=== PATIENT | female | born 1965 | race Caucasian/White ===

== ENCOUNTER → 2018-03-25 15:52 | Outpatient (CLI) | payer BC, SELFPAY ==
[2018-03-25 18:00] LABS: Vitamin D,25 Hydroxy 25.7 ng/mL (29.95-100.01)
[2018-03-25 18:03] LABS: BUN 15 mg/dL (7-18); Creatinine, Serum 0.83 mg/dL (0.55-1.02); Glucose 87 mg/dL (74-106)
[2018-03-25 18:04] LABS: ALB/GLOB Ratio 1.2 RATIO (0.9-2.4); AST(SGOT) 29 U/L (15-37); Alanine Aminotransfer ALT/SGPT 30 U/L (13-56); Albumin, Serum 4.1 g/dL (3.2-5.0); Alkaline Phosphatase 85 U/L (45-117); Anion Gap 7 (5-15); Chloride 106 mmol/L (98-107); EST Glomerular Filtration Rate 76 mL/min (>60); Est Glom Filt Rate - Afr Amer 92 mL/min (>60); Globulin 3.5 g/dL (2.2-4.2); Protein, Total 7.6 g/dL (6.4-8.2); Sodium Level 141 mmol/L (136-145); Thyroid Stim Hormone (TSH) 1.13 uIU/mL (0.358-3.74)
[2018-03-25 18:17] LABS: Differential Indicated SCAN CRITERIA MET; POSITIVE COUNT YES; POSITIVE DIFFERENTIAL NO; POSITIVE MORPHOLOGY NO
[2018-03-25 19:49] LABS: Hematocrit 38.6 % (37-47); Hemoglobin 13.2 g/dl (12.0-15.0); Mean Corp Hgb Conc 34.2 g/gl (32-36); Mean Corpuscular Hgb 31.4 pg (27.0-32.0); Mean Corpuscular Volume 91.9 fL (81-99); RBC Distribution Width CV 12.9 % (11.6-14.6); White Blood Count 5.9 K/mm3 (4.4-11.0)
[2018-03-25 19:50] LABS: Basophil% 0.3 % (0-1); Lymphocyte % 32.9 % (19-41); Mean Platelet Vol. 10.7 fl (6.2-12.0); Monocyte% 4.8 % (0-10); Neutrophil # 3.23 X10^3/uL (2.7-7.7); Neutrophil % 54.8 % (47-70); Platelet Count 217 K/mm3 (150-450); RBC Distribution Width SD 42.5 fl (35.1-43.9)
[2018-03-25 19:51] LABS: Absolute Lymphocyte Count 1.94 X10^3/ul (0.83-4.51); Absolute Neutrophil Count 3.2 X10^3/uL (2.0-7.7); Basophil# 0.02 X10^3/uL; Eosinophil# 0.41 X10^3/uL; Lymphocyte # 1.94 X10^3/ul (4.0); Monocyte# 0.28 X10^3/uL
[2018-03-25 20:30] LABS: Differential Comment SCANNED; Platelet Estimate ADEQUATE (ADEQ)
== END ==
PROVIDERS: Family Provider Internal Medicine; PCP Internal Medicine; Visit Provider Nurse Practitioner Family
DX: R40.0 Somnolence (principal); E55.9 Vitamin D deficiency, unspecified; R53.83 Other fatigue
CPT/HCPCS: 36415; 80053; 82306; 84443; 85025

== ENCOUNTER → 2018-04-19 20:00 | Outpatient (CLI) | payer BC, SELFPAY | PROVIDERS: Family Provider Internal Medicine; PCP Internal Medicine; Visit Provider Nurse Practitioner Family | DX: R40.0 Somnolence (principal); R06.83 Snoring; R53.83 Other fatigue | CPT/HCPCS: 95810 ==

== ENCOUNTER → 2018-10-02 15:48 | Outpatient (CLI) | payer BC, SELFPAY ==
--- NOTE | 2018-10-02 15:50 | BI_ITS ---
MAMMOGRAPHY - BILATERAL SCREENING REASON FOR EXAM: Female, 52 years old. Routine annual screening examination. PERTINENT HISTORY: Non-contributory. TECHNIQUE: Digital bilateral breast maru (3D mammographic acquisition) in the CC and MLO projections. 2-D mediolateral oblique (MLO) and craniocaudad (CC) views of both breasts were obtained. CAD: Full Field Digital Mammography with Computer Added Detection was performed. COMPARISON: Comparison is made with prior axial examination dated January 01, 2017 and December 29, 2015. FINDINGS: Breast Composition: The breasts are heterogeneously dense, which may obscure small masses. There are no dominant masses or suspicious calcifications. Stable small benign-appearing bilateral axillary lymph nodes. No other significant abnormalities are identified. There has been no significant change since the prior study. BI/SCREENING MAMM (CAD), BILAT IMPRESSION: Stable bilateral screening mammogram. Yearly follow-up mammogram recommended. (A) ASSESSMENT CATEGORY: BIRADS Category 2: Benign. A letter regarding these results will be sent to the patient by the facility within 30 days. Approximately 10% of breast cancers are not detected by mammography. A normal mammogram should not delay biopsy of a clinically suspicious abnormality. [id number] Electronically Signed: Ashok Mccurdy MD at 8:52 EST Tel [phone], Service support ,
== END ==
PROVIDERS: Family Provider Internal Medicine; PCP Internal Medicine; Referring Provider Obstetrics & Gynecology Gynecology; Visit Provider Obstetrics & Gynecology Gynecology
DX: Z12.31 Encounter for screening mammogram for malignant neoplasm of breast (principal)
CPT/HCPCS: 77063; 77067

== ENCOUNTER → 2018-10-07 06:05 | Outpatient (CLI) | payer BC, SELFPAY ==
[2018-10-07 08:12] LABS: Cholesterol 211 mg/dL (200); Glucose 87 mg/dL (74-106); High Density Lipoprotein 60 mg/dL; Thyroid Stim Hormone (TSH) 1.23 uIU/mL (0.358-3.74); Triglycerides 109 mg/dL; Very Low Density Lipoprotein 22 mg/dL (5-40)
== END ==
PROVIDERS: Family Provider Internal Medicine; PCP Internal Medicine; Referring Provider Obstetrics & Gynecology Gynecology; Visit Provider Obstetrics & Gynecology Gynecology
DX: Z13.1 Encounter for screening for diabetes mellitus (principal); Z13.89 Encounter for screening for other disorder; Z13.220 Encounter for screening for lipoid disorders
CPT/HCPCS: 36415; 80061; 82947; 84443

== ENCOUNTER → 2019-10-02 | Outpatient (CLI) | payer BC, SELFPAY ==
--- NOTE | 2019-10-02 16:12 | US_ITS ---
STUDY: ULTRASOUND OF THE FEMALE PELVIS - COMPLETE REASON FOR EXAM: Female, 53 years old. Follow-up fibroids LMP: TECHNIQUE: Transvaginal TECHNICAL QUALITY: Adequate. COMPARISON: 07/05/2016. FINDINGS: The uterus is anteverted and is in a midline position. The uterus measures 6.6 x 8.4 x 2.8 cm. Normal uterine cervix. The endometrium measures 3 mm in thickness, and is hyperechoic. There is no demonstrated endometrial mass. Uterus is lobulated and heterogeneous consistent with diffuse leiomyomatous change and multiple fibroids. There is a right uterine fibroid measuring 6.1 cm. There is a fundal fibroid measuring 2.1 cm. There is an anterior uterine body fibroid measuring 2.1 cm. The right ovary is non-visualized. The left ovary is visualized. The left ovary measures 2.5 x 1.1 x 1.1 cm. There is no left ovarian cyst or ovarian mass. There is no visualized left adnexal mass or complex lesion. There is normal arterial and normal venous vascularity. There is no fluid in the cul-de-sac. US/Transvaginal Non- IMPRESSION: Grossly stable diffuse fibroid involvement of the uterus. Current largest fibroid measures 6.1 cm. Uterine size however is not specifically enlarged. Electronically Signed: Sandro Durán MD at 21:41 EST , Service support ,
== END | disposition home or self-care (01) ==
LOC: US 16:10
PROVIDERS: Family Provider Internal Medicine; PCP Internal Medicine; Referring Provider Obstetrics & Gynecology Gynecology; Visit Provider Obstetrics & Gynecology Gynecology
DX: D25.2 Subserosal leiomyoma of uterus (principal)
CPT/HCPCS: 76830; 93976

== ENCOUNTER → 2019-10-03 | Outpatient (CLI) | payer BC, SELFPAY ==
[2018-05-03 10:35] VITALS: BMI 23.0
--- NOTE | 2019-10-03 15:48 | BI_ITS ---
MAMMOGRAPHY - BILATERAL SCREENING REASON FOR EXAM: Female, 53 years old. Routine annual screening examination. PERTINENT HISTORY: Non-contributory. TECHNIQUE: Digital bilateral breast mary kay (3D mammographic acquisition) in the CC and MLO projections. 2-D mediolateral oblique (MLO) and craniocaudad (CC) views of both breasts were obtained. CAD: Full Field Digital Mammography with Computer Added Detection was performed. COMPARISON: Comparison is made with prior study dated October 02, 2018. FINDINGS: Breast Composition: The breasts are heterogeneously dense, which may obscure small masses. There are no dominant masses or suspicious calcifications. There is a 1.5 cm x 1.5 cm possible nodular density in the upper aspect of the left breast as seen on the mediolateral oblique view. This is not seen on the craniocaudad view. The patient will be recalled for additional views including 90 degree lateral and compression spot view. No other significant abnormalities are identified. BI/SCREEN MAMM (CAD) W/MARY KAY BILAT IMPRESSION: 1.5 cm x 1.5 cm nodular density seen on the mediolateral oblique view of the left breast as described. The patient will be recalled for additional views including 90 degree lateral view and compression spot views of the left breast. Recall Side: Left Breast ASSESSMENT CATEGORY: BIRADS Category 0: Incomplete. Need additional imaging evaluation. A letter regarding these results will be sent to the patient by the facility within 30 days. Approximately 10% of breast cancers are not detected by mammography. A normal mammogram should not delay biopsy of a clinically suspicious abnormality. [id number] Electronically Signed: Ashok Mccurdy, at 8:18 EST , Service support ,
== END | disposition home or self-care (01) ==
LOC: OPBI 15:47
PROVIDERS: Family Provider Family Medicine; PCP Family Medicine; Referring Provider Obstetrics & Gynecology Gynecology; Visit Provider Obstetrics & Gynecology Gynecology
DX: Z12.31 Encounter for screening mammogram for malignant neoplasm of breast (principal)
CPT/HCPCS: 77063; 77067

== ENCOUNTER → 2019-10-13 14:08 | Outpatient (CLI) | payer BC, SELFPAY ==
--- NOTE | 2019-10-13 14:12 | US_ITS ---
STUDY: ULTRASOUND BREAST - LEFT REASON FOR EXAM: Female, 53 years old. TECHNIQUE: Axial and longitudinal images of the LEFT breast were performed with a high resolution ultrasound transducer. # OF IMAGES: 62 COMPARISON: None. FINDINGS: LEFT Breast: There is hyperechoic/hypoechoic texture and some distortion although no evidence of acoustic shadowing behind it. This is about to 1:00 o'clock on the left side for which I recommend MRI for this patient for better evaluation and assessment US/Breast Limited Unilateral IMPRESSION: Focal area of hyperechoic/hypoechoic texture around 1:00 on the left for which MRI is suggested. Electronically Signed: Christian Cherry, at 17:02 EST Tel , Service support ,
--- NOTE | 2019-10-13 14:12 | BI_ITS ---
MAMMOGRAPHY - UNILATERAL DIAGNOSTIC: LEFT BREAST REASON FOR EXAM: Female, 53 years old. PERTINENT HISTORY: Non-contributory. TECHNIQUE: Digital examination. Mediolateral oblique (MLO) and craniocaudad (CC) views of the breast were obtained. CAD: COMPARISON: None. FINDINGS: Breast Composition: Of scattered fibroglandular tissue There are no dominant masses or suspicious calcifications. No other significant abnormalities are identified. The previously described density in the upper aspect of the left base noted in the mediolateral oblique view. Did show faint density on the spot film compression and difficult to characterize so ultrasound is needed for better assessment.. IMPRESSION: Faint density upper aspect of the left breast for ultrasound assessment. MAMMOGRAPHY - BILATERAL SCREENING REASON FOR EXAM: Female, 53 years old. Routine annual screening examination. PERTINENT HISTORY: Non-contributory. TECHNIQUE: Digital bilateral breast maru (3D mammographic acquisition) in the CC and MLO projections. 2-D mediolateral oblique (MLO) and craniocaudad (CC) views of both breasts were obtained. CAD: Full Field Digital Mammography with Computer Added Detection was performed. COMPARISON: Comparison is made with prior study dated October 02, 2018. FINDINGS: Breast Composition: The breasts are heterogeneously dense, which may obscure small masses. There are no dominant masses or suspicious calcifications. There is a 1.5 cm x 1.5 cm possible nodular density in the upper aspect of the left breast as seen on the mediolateral oblique view. This is not seen on the craniocaudad view. The patient will be recalled for additional views including 90 degree lateral and compression spot view. No other significant abnormalities are identified. BI/DIAG MAMM W/CAD, UNILAT IMPRESSION: 1.5 cm x 1.5 cm nodular density seen on the mediolateral oblique view of the left breast as described. The patient will be recalled for additional views including 90 degree lateral view and compression spot views of the left breast. Recall Side: Left Breast ASSESSMENT CATEGORY: BIRADS Category 0: Incomplete. Need additional imaging evaluation. A letter regarding these results will be sent to the patient by the facility within 30 days. Approximately 10% of breast cancers are not detected by mammography. A normal mammogram should not delay biopsy of a clinically suspicious abnormality. [id number] ASSESSMENT CATEGORY: FOLLOW-UP RECOMMENDATION: Approximately 10% of breast cancers are not detected by mammography. A normal mammogram should not delay biopsy of a clinically suspicious abnormality. Electronically Signed: Christian Cherry, at 14:54 EST Tel , Service support ,
== END ==
PROVIDERS: Family Provider Family Medicine; PCP Family Medicine; Referring Provider Obstetrics & Gynecology Gynecology; Visit Provider Obstetrics & Gynecology Gynecology
DX: R92.8 Other abnormal and inconclusive findings on diagnostic imaging of breast (principal)
CPT/HCPCS: 76642; 77065

== ENCOUNTER → 2019-10-27 13:14 | Outpatient (CLI) | payer BC, SELFPAY ==
--- NOTE | 2019-10-27 13:23 | MRI_ITS ---
STUDY: BILATERAL BREAST MR WITHOUT AND WITH CONTRAST REASON FOR EXAM: Female, 54 years old. Abnormal mammogram and ultrasound. TECHNIQUE: Multi-sequence multi-echo imaging of both breasts was performed with a dedicated breast coil. T1-weighted and T2-weighted images were performed before the administration of contrast. T1-weighted images were also performed after the administration of Dotarem 12cc without complications. COMPARISON: Bilateral mammograms dated October 03, 2019, unilateral left mammogram dated October 13, 2019 and unilateral left breast ultrasound dated October 13, 2019. FINDINGS: RIGHT BREAST: The breast tissue is heterogeneously dense with minimal background enhancement. 4 mm in diameter ovoid enhancing lesion in the upper outer aspect of the right breast, likely representing a fibroadenoma. A six-month follow-up right mammogram and a targeted right breast ultrasound would be appropriate, given the small size of this lesion. The lesion is located 7.5 cm behind the nipple and approximately 1.6 cm lateral to the nipple and approximately 2.4 cm above the nipple. LEFT BREAST: The breast tissue is heterogeneously dense with minimal background enhancement. There are no abnormal enhancing masses or areas of non-mass enhancement in the left breast. There are no enlarged or abnormal lymph nodes. There is no abnormality in the visualized regions of the chest or liver. MRI/Breast Bilateral W/O and W IMPRESSION: Normal left breast. 4 mm in diameter ovoid enhancing lesion in the right breast as described. A 6 month follow-up mammogram and targeted right breast ultrasound would be appropriate, given the small size of this lesion. CATEGORY: BIRADS Category 3: Probably Benign - Short-Interval Follow-up Suggested. A letter regarding these results will be sent to the patient by the facility within 30 days. Electronically Signed: Aramis Mcallister MD at 16:32 EST , Service support ,
== END ==
PROVIDERS: Family Provider Family Medicine; PCP Family Medicine; Referring Provider Obstetrics & Gynecology Gynecology; Visit Provider Obstetrics & Gynecology Gynecology
DX: R92.8 Other abnormal and inconclusive findings on diagnostic imaging of breast (principal)
CPT/HCPCS: 77049; C8908

== ENCOUNTER → 2020-10-26 13:12 | Outpatient (CLI) | payer BC, SELFPAY ==
[2018-05-03 10:35] VITALS: BMI 23.0
== END ==
PROVIDERS: PCP Family Medicine; Referring Provider Obstetrics & Gynecology Gynecology; Visit Provider Obstetrics & Gynecology Gynecology
DX: R00.2 Palpitations (principal)
CPT/HCPCS: 93225; 93226

== ENCOUNTER 2020-11-03 05:51 | Observation (INO) | payer BC, SELFPAY ==
[2020-11-03] VITALS (17 sets, daily range): BP systolic 104–172; BP diastolic 71–107; PULSE 76–101; RESP 16–18; TEMP 36.5–37.1; O2SAT 96–100; BMI 23.1
--- NOTE | 2020-11-03 05:53 | ED.RN ---
no old ekgs on file
--- NOTE | 2020-11-03 06:06 | EKG12_ITS ---
Test Reason : CHEST PAIN Blood Pressure : / mmHG Vent. Rate : 088 BPM Atrial Rate : 088 BPM P-R Int : 132 ms QRS Dur : 082 ms QT Int : 356 ms P-R-T Axes : 053 -14 036 degrees QTc Int : 430 ms Normal sinus rhythm Normal ECG Confirmed by PRISCILLA ROSADO, NAMRATA ([id number]), videotape editor SYD NAVARRETE ([id number]) on 11/10/2020 10:28:16 AM Referred By: JAY Confirmed By:JACK WELLS MD
--- NOTE | 2020-11-03 06:06 | RAD_ITS ---
STUDY: X-RAY CHEST REASON FOR EXAM: Female, 55 years old. c/o heaviness in chest and dyspnea x 1 week TECHNIQUE: Single AP portable view of the chest. COMPARISON: None. FINDINGS: There are superimposed monitor leads. There is hyperinflation of the lungs consistent with chronic obstructive lung disease (COPD). Calcified nodule in the left peripheral lung base. There is no demonstrated pleural abnormality. Normal size heart. Normal mediastinum and gregoria. Normal visualized pulmonary arteries. There is atherosclerotic calcification of the aortic arch with tortuosity. Normal visualized thoracic spine. Normal visualized ribs, clavicles, and shoulders. There is no demonstrated abnormality of the visualized soft tissue structures of the upper abdomen. RAD/Chest 1 View (Portable) IMPRESSION: COPD. Calcified nodule in the left base possible granuloma. Correlation to previous examination and history recommended. Otherwise follow-up examination for stability assessment advised. Electronically Signed: Marti Baker MD at 6:43 EST , Service support ,
--- NOTE | 2020-11-03 06:07 | ED.DCSUM_ITS ---
History of Present Illness Chief Complaint: Chest Pain Informant: Patient Onset: Days - 6 days Context: Gradual Onset Timing: Waxes and wanes Current Severity: Moderate Maximum Severity: Moderate Narrative: Patient presents secondary to chest heaviness. She states she has felt like she had someone sitting on her chest for the last week or so. On the eighth she had a Holter monitor placed secondary to palpitations. She states ever since that was removed on the 10th she has had heaviness in her chest. It does seem to get worse with exertion is slightly better with rest. She does feel like she can get a deep breath. No fevers or chills. No cough. She denies known history of cardiac disease but denies ever having a stress test or heart cath. She denies any significant family history. - Past Medical History (1) GERD (gastroesophageal reflux disease) Status: Chronic (2) Chronic back pain Status: Chronic Past Medical History - Allergies and Home Meds Allergies/Adverse Reactions: Allergies No Known Allergies Allergy (Unverified 05/03/18 10:45) Primary Care Physician: Jessica Huffman MD [Primary Care Provider] - Prior records reviewed: Yes Smoking Status: Former smoker Review of Systems General: Denies: Chills, Fever Eyes: Denies: Visual changes - bilaterally ENT: Denies: Bilateral ear pain Cardiovascular: Reports: Chest pain Respiratory: Denies: Dyspnea, Cough Gastrointestinal: Denies: Abdominal pain, Nausea, Vomiting, Diarrhea Genitourinary: Denies: Dysuria Musculoskeletal: Denies: Swelling, Extremity Pain Skin: Denies: Rash Neurological: Denies: Headache Hematologic: Denies: Easy bruising, Easy bleeding Allergy: Denies: Uticaria Physical Exam Vital Signs/Narrative: Vital Signs Temp Pulse Resp BP Pulse Ox 11/03/20 05:51 98.4 F 100 17 172/107 H 100 Inital Vital Signs reviewed: Yes General: Well nourished, Well developed Head: Normocephalic ENT: Moist mucous membranes Neck: Supple Cardiovascular: Regular rate, Regular rhythm Respiratory: No distress, CTA bilaterally, Chest nontender Abdomen: Soft, Nontender Skin: Normal color Neurological: Alert, Oriented x3 Psychological: Normal affect Diagnostic/Tx/Re-eval Chest X-Ray - ED: 1 View, Read by ED Physician, - - Hyperexpanded lungs. 11/03/20 06:06 Chest 1 View (Portable) [RAD] Stat Laboratory Results 11/03/20 11/03/20 05:54 05:54 WBC 5.4 RBC 5.13 Hgb 16.0 H Hct 46.6 MCV 90.8 MCH 31.2 MCHC 34.3 RDW Std Deviation 39.1 RDW Coeff of Angie 11.9 Plt Count 240 MPV 9.9 Immature Gran % (Auto) 0.400 Neut % (Auto) 50.7 Lymph % (Auto) 33.2 [place] % (Auto) 5.9 Eos % (Auto) 9.1 H Baso % (Auto) 0.7 Absolute Neuts (auto) 2.7 Absolute Lymphs (auto) 1.79 Nucleated RBC % 0 Sodium 139 Potassium 3.5 Chloride 106 Carbon Dioxide 29.0 Anion Gap 4 L BUN 16 Creatinine 0.85 Estim Creat Clear Calc 57.75 Est GFR (MDRD) Af Amer 89 Est GFR (MDRD) Non-Af 74 BUN/Creatinine Ratio 18.9 Glucose 100 Calcium 9.3 Troponin I < 0.015 - EKG Initial EKG Interpretation: Sinus Rhythm - Sinus 88 with no acute ischemia. - Medical Decision Making Patient was given aspirin along with 2 sublingual nitroglycerin. On repeat evaluation she reports mild improvement in her pain. Blood work including cardiac enzymes are negative at this time. Chest x-ray shows chronic hyperinflation changes. I was able to review the Holter monitor report from earlier this month. Rare PVCs were noted. No arrhythmias appreciated. At this time patient story is concerning. I will speak with hospitalist regarding observation for cycling of enzymes and possible stress test. Patient is comfortable with this plan. ED Disposition - Plan for ED Patient: Disposition: Acute Care Hospital [facility] Diagnosis: Chest pain Referrals: Jessica Huffman MD [Primary Care Provider] -
[2020-11-03] MEDS: Aspirin 81 MG TAB.CHEW 324 MG PO (06:10)
[2020-11-03 06:11] LABS: Absolute Lymphocyte Count 1.79 X10^3/uL (0.83-4.51); Absolute Neutrophil Count 2.7 X10^3/uL (2.0-7.7); Basophil# 0.04 X10^3/uL; Basophil% 0.7 % (0-1); Eosinophil# 0.49 X10^3/uL; Eosinophils% 9.1 % (0-5); Hematocrit 46.6 % (37-47); Lymphocyte # 1.79 X10^3/ul (4.0); Lymphocyte % 33.2 % (19-41); Mean Corp Hgb Conc 34.3 g/dL (32-36); Mean Corpuscular Hgb 31.2 pg (27.0-32.0); Mean Corpuscular Volume 90.8 fL (81-99); Mean Platelet Vol. 9.9 fl (6.2-12.0); Monocyte# 0.32 X10^3/uL; Monocyte% 5.9 % (0-10); NRBC Flagged by Analyzer 0 % (0-5); Neutrophil # 2.73 X10^3/uL (2.7-7.7); Neutrophil % 50.7 % (47-70); Platelet Count 240 K/mm3 (150-450); RBC Distribution Width CV 11.9 % (11.6-14.6); RBC Distribution Width SD 39.1 fl (35.1-43.9); Red Blood Count 5.13 M/mm3 (4.2-5.4); White Blood Count 5.4 K/mm3 (4.4-11.0)
[2020-11-03] MEDS: Nitroglycerin SL (ED/IMG/CATH) 0.4 MG TABLET SUBLINGUAL ×2 (06:15→06:25)
[2020-11-03] MEDS: 0.9% Normal Saline 1,000 ML 150 ML IV ×3 (06:16→18:42)
[2020-11-03 06:29] LABS: Anion Gap 4 (5-15); BUN 16 mg/dL (7-18); BUN/Creat Ratio 18.9 RATIO (10-20); Calcium,Total 9.3 mg/dL (8.5-10.1); Chloride 106 mmol/L (98-107); Creatinine, Serum 0.85 mg/dL (0.55-1.02); EST Glomerular Filtration Rate 74 mL/min (>60); Est Glom Filt Rate - Afr Amer 89 mL/min (>60); Estimated Creatinine Clearance 57.75 ml/min; Glucose 100 mg/dL (74-106); Potassium 3.5 mmol/L (3.5-5.1); Sodium Level 139 mmol/L (136-145)
--- NOTE | 2020-11-03 07:09 | EKG12_ITS ---
Test Reason : ADMISSION Blood Pressure : / mmHG Vent. Rate : 079 BPM Atrial Rate : 079 BPM P-R Int : 138 ms QRS Dur : 078 ms QT Int : 384 ms P-R-T Axes : 043 004 026 degrees QTc Int : 440 ms Normal sinus rhythm Normal ECG Confirmed by BRANDO ROSADO, WINNIE ([id number]), editorial clerk KATJA CURRY ([id number]) on 11/15/2020 8:13:13 AM Referred By: BRITTNEY Confirmed By:WINNIE MICHAELS MD
--- NOTE | 2020-11-03 07:12 | HP.PCM_ITS ---
Problem List (1) Chest pain Status: Acute (2) GERD (gastroesophageal reflux disease) Status: Chronic (3) PLMD (periodic limb movement disorder) Status: Chronic (4) Mild sleep apnea Status: Chronic (5) Snoring Status: Chronic (6) Daytime somnolence Status: Chronic (7) Menopausal and postmenopausal disorder Status: Chronic (8) Chronic back pain Status: Chronic (9) Seasonal allergies Status: Chronic History of Present Illness Date of Admission: 11/03/20 Chief Complaint: Chest Pain The patient is a 55 year old F past medical history segment for GERD who presented with chest pain. Patient symptoms have been ongoing for the past week. She describes the pain as being heaviness located in the retrosternal region worsened with activity and relieved with rest. She had also been experiencing some palpitations prior to that Holter monitor ordered revealed episodic PVCs. In the emergency department her initial set of cardiac enzymes and EKG came back negative was given nitroglycerin with some relief admitted to a monitored bed for further management Past Medical History Past Medical History (Chronic Problems): Chronic Problems (Last Reviewed 05/03/18 @ 10:49 by Jessica Yates CONTROL SPECIALIST, CONTROL SPECIALIST-C) GERD (gastroesophageal reflux disease) (Chronic) PLMD (periodic limb movement disorder) (Chronic) Mild sleep apnea (Chronic) Snoring (Chronic) Daytime somnolence (Chronic) Menopausal and postmenopausal disorder (Chronic) Chronic back pain (Chronic) Seasonal allergies (Chronic) Medical History: Medical History (Last Reviewed 11/03/20 @ 07:[address] Samuel Duarte MD) Menopausal and postmenopausal disorder (Chronic) N95.9 Chronic back pain (Chronic) M54.9, G89.29 Seasonal allergies (Chronic) J30.2 Allergies No Known Allergies Allergy (Unverified 05/03/18 10:45) Home Medications: Ambulatory Orders Medication Instructions Recorded Omeprazole [Prilosec] 20 mg PO DAILY 11/03/20 Surgical History: Surgical History (Last Reviewed 11/03/20 @ 07:[address] Samuel Duarte MD) H/O right breast biopsy Z98.890 2005 S/P bunionectomy Z98.890 Right foot 2013 Smoking Status: Former smoker - *Family History Maternal Family History: Family History (Last Reviewed 11/03/20 @ 07:[address] Samuel Duarte MD) Mother COPD (chronic obstructive pulmonary disease) Emphysema lung Father Lung cancer Brother Pancreatic cancer Review of Systems Constitutional: Denies: Anorexia, Chills, Fever, Night Sweats, Weight Change HEENT: Denies: Head Aches, Sinus Congestion, Sinus Drainage Cardiovascular: Reports: Chest Pain, Chest Pressure, Palpitations. Denies: Orthopnea, Paroxysmal Noc. Dyspnea Respiratory: Denies: Cough, Shortness of breath at rest, Shortness of breath upon exertion, Sputum production Gastrointestinal: Denies: Abdominal Pain, Hematemesis, Hematochezia, Nausea, Melena, Vomiting Genitourinary: Denies: Dysuria, Frequency, Hematuria, Urgency Musculoskeletal: Denies: Joint Pain, Joint Tenderness Skin: Denies: Rash Neurological: Denies: Focal weakness, Numbness, Tingling Psychiatric: Denies: Homicidal Ideations, Suicidal Ideations Hematologic/ Lymphatic: Denies: Easy Bruising, Easy Bleeding VTE Information - Inpt Only VTE Present on Admission: Yes VTE Mechan Device Prophylaxis: None VTE Pharm Prophylaxis ordered?: Yes Patient Problems: Active and Suspected Problems (Last Reviewed 05/03/18 @ 10:49 by Jessica Yates CONTROL SPECIALIST, CONTROL SPECIALIST-C) Chest pain (Acute) - Physical Exam Vitals/I&O's: Vital Signs Temp Pulse Resp BP Pulse Ox 98.7 F 77 18 133/86 H 99 11/03/20 07:06 11/03/20 07:06 11/03/20 07:06 11/03/20 07:06 11/03/20 07:06 Oxygen Delivery Method Room Air Weight: 57.5 kg Body Mass Index (BMI) 23.1 General: Alert, Oriented x3, Cooperative, No apparent distress HEENT: Atraumatic Neck: Supple, No JVD, Thyroid Normal Size and Texture Lungs: Clear to auscultation, No wheeze Cardiovascular: Regular rate, Normal S1, Normal S2, No murmurs, PMI Normal, No rub noted Abdomen: Bowel Sounds Present, Soft, Non Tender Extremities: No clubbing, No cyanosis, No edema Skin: No rashes Musculoskeletal: - - Full range of motion in all major muscle groups. Neurological: Neuro grossly intact Psych/Mental Status: Normal Affect Laboratory Results 11/03/20 05:54: WBC 5.4, RBC 5.13, Hgb 16.0 H, Hct 46.6, MCV 90.8, MCH 31.2, MCHC 34.3, RDW Std Deviation 39.1, RDW Coeff of Angie 11.9, Plt Count 240, MPV 9.9, Immature Gran % (Auto) 0.400, Neut % (Auto) 50.7, Lymph % (Auto) 33.2, [place] % (Auto) 5.9, Eos % (Auto) 9.1 H, Baso % (Auto) 0.7, Absolute Neuts (auto) 2.7, Absolute Lymphs (auto) 1.79, Nucleated RBC % 0 11/03/20 05:54: Sodium 139, Potassium 3.5, Chloride 106, Carbon Dioxide 29.0, Anion Gap 4 L, BUN 16, Creatinine 0.85, Estim Creat Clear Calc 57.75, Est GFR (MDRD) Af Amer 89, Est GFR (MDRD) Non-Af 74, BUN/Creatinine Ratio 18.9, Glucose 100, Calcium 9.3, Troponin I < 0.015 Current Medications Sodium Chloride () 1,000 mls @ 150 mls/hr IV .Q6H40M [place] Last Admin: 11/03/20 06:16 Dose: 150 mls/hr Documented by: Nitroglycerin (Nitroglycerin Sl (Ed/Img/Cath) 0.4 Mg Tablet) 0.4 mg SUBLINGUAL Q5M PRN PRN Reason: Chest pain Last Admin: 11/03/20 06:25 Dose: 0.4 mg Documented by: Assessment/Plan All Active Problems (Last Reviewed 05/03/18 @ 10:49 by Jessica Yates CONTROL SPECIALIST, CONTROL SPECIALIST- C) Chest pain (Acute) Patient is a 55-year-old lady presented with chest discomfort 1. Chest pain ?Admitted to monitored bed ruling out NH with serial cardiac enzymes patient to undergo a nuclear stress test once NH ruled out 2. GERD -patient is on PPI 3. DVT prophylaxis ?Lovenox OBSV E&M: [id number] Initial observation care L2
--- NOTE | 2020-11-03 07:12 | NURSING ---
PCU CP KITRAUL
--- NOTE | 2020-11-03 09:13 | PCS.PANDOC ---
PANDEMIC DOCUMENTATION INITIATED: Date: 11/03/2021 Time: 911
[2020-11-03] MEDS: Pantoprazole Sodium 20 MG Tablet PO (10:06)
--- NOTE | 2020-11-03 13:41 | STRESSREP_ITS ---
Stress Test Report Date: 1965 Procedure: Exercise tolerance test/imaging study Indications: Chest pain Consent: Per the patient Procedure: The patient exercised on a Zach protocol for 9 minutes achieving a peak heart rate of 173 bpm (106% predicted maximal heart rate) with a peak blood pressure 154/72 mmHg and a peak MET capacity of 10.1 METs. The baseline ECG demonstrated normal sinus rhythm. The peak exercise ECG demonstrated tachycardia with no significant ischemic ST-T changes. Patient does have upsloping ST depressions in the inferior and lateral leads. EKG during recovery revealed no significant ischemic changes [There were no cardiac dysrhythmias pretest, during exercise, or recovery]. The functional capacity was considered normal for age. Patient had chest pain at baseline which got worse with exertion and came down in the recovery period. The examination was discontinued secondary to chest discomfort. Impression: 1. Technically adequate (percent predicted maximal heart rate greater than 85%) exercise tolerance test 2. Stress test is negative for exercise-induced EKG changes of ischemia 3. The test test is positive for exercise-induced chest pain 4. Functional capacity is normal for age 5. Nuclear images pending Myocardial perfusion imaging study: Technique: The patient was injected with 11.7 mCi of technetium 99m Cardiolite and subsequently rest SPECT Cardiolite nuclear imaging was obtained in the horizontal long, vertical long, and short axis views. The patient exercised on a Zach protocol. Please see above for details. The patient was injected with 32.9 mCi of technetium 99m Cardiolite and subsequently stress SPECT Cardiolite nuclear imaging was obtained in the horizontal long, vertical long, and short axis views. A gated Cardiolite study at peak stress was obtained. Interpretation: Rest and stress SPECT Cardiolite nuclear imaging status post realignment, normalization, and attenuation correction, demonstrates no significant fixed or reversible defect suggestive of significant ischemia or infarction. The gated Cardiolite study demonstrates no significant regional wall motion abnormalities. The reported LVEF is greater than 70%. Impression: 1. There is no evidence of significant ischemia or infarction. 2. The gated Cardiolite study reports an LVEF of greater than 70%. This note was generated with [email or web address] software. It may contain incorrect words, spelling, and punctuation that were not noted in checking the note before signing.
--- NOTE | 2020-11-03 15:12 | CASEMGMT ---
According to the [facility] website, the following are in-network tertiary facilities: [facility], [place], [facility], [facility], [facility], [facility], [facility], and . Yuri SMITH CM
--- NOTE | 2020-11-03 15:36 | PCM.CONS.C ---
Reason for Consult Date of Consultation: 11/03/20 Reason for Consultation: chest pain, abnormal stress test History of Present Illness: The patient is a 55 year old F [presenting with retrosternal chest discomfort that is pressure-like. She states she sometimes gets it at rest but exertion does make it worse. She underwent stress testing which revealed no significant EKG or nuclear changes suggestive of significant ischemia but patient had chest discomfort at baseline that was worse with exertion. Review of systems: All systems reviewed. All others negative except that in HPI] Past Medical History Allergies/Adverse Reactions: Allergies No Known Allergies Allergy (Unverified 05/03/18 10:45) Home Medications: Ambulatory Orders Medication Instructions Recorded Omeprazole [Prilosec] 20 mg PO DAILY 11/03/20 Past Medical History (Chronic Problems): Chronic Problems (Last Reviewed 11/03/20 @ 07:[address] Samuel Duarte MD) GERD (gastroesophageal reflux disease) (Chronic) PLMD (periodic limb movement disorder) (Chronic) Mild sleep apnea (Chronic) Snoring (Chronic) Daytime somnolence (Chronic) Menopausal and postmenopausal disorder (Chronic) Chronic back pain (Chronic) Seasonal allergies (Chronic) - *Family History Maternal Family History: Family History (Last Reviewed 11/03/20 @ 07:[address] Samuel Duarte MD) Mother COPD (chronic obstructive pulmonary disease) Emphysema lung Father Lung cancer Brother Pancreatic cancer Smoking Status: Former smoker Objective: Vital Signs Temp Pulse Resp BP Pulse Ox 98.1 F 95 16 137/78 H 100 11/03/20 11:40 11/03/20 15:00 11/03/20 11:40 11/03/20 11:40 11/03/20 15:13 Oxygen Delivery Method Room Air Weight: 126 lb 8.725 oz Body Mass Index (BMI) 23.1 Intake and Output for Last 24 Hours 11/01/20 11/02/20 11/03/20 23:59 23:59 23:59 Intake Total 892.5 / 892.5 Balance 892.5 / 892.5 General: Awake, Alert, Oriented x 3 HEENT: Atraumatic Oral: Moist Mucosa Neck: Supple Lungs: Clear to auscultation Cardiovascular: Regular Rhythm Extremities: No edema Skin: No Rashes Psych/Mental Status: Appropriate 11/03/20 05:54: WBC 5.4, RBC 5.13, Hgb 16.0 H, Hct 46.6, MCV 90.8, MCH 31.2, MCHC 34.3, Plt Count 240, MPV 9.9, Immature Gran % (Auto) 0.400, Neut % (Auto) 50.7, Lymph % (Auto) 33.2, [place] % (Auto) 5.9, Eos % (Auto) 9.1 H, Baso % (Auto) 0.7, Absolute Neuts (auto) 2.7, Nucleated RBC % 0 11/03/20 05:54: Sodium 139, Potassium 3.5, Chloride 106, Carbon Dioxide 29.0, Anion Gap 4 L, BUN 16, Creatinine 0.85, Est GFR (MDRD) Af Amer 89, Est GFR (MDRD) Non-Af 74, BUN/Creatinine Ratio 18.9, Glucose 100, Calcium 9.3, Troponin I < 0.015 11/03/20 09:20: Troponin I < 0.015 11/03/20 12:28: Troponin I < 0.015 Rhythm: EKG: ECHO: Stress Test: Cardiac Cath: PCI: CT Surgery: Holter monitor: EPS: PPM: CXR: Chest CT Scan: Assessment/Plan 1. Chest pain: This is concerning for unstable angina. Treatment options discussed with patient in detail. We will proceed with coronary angiography tomorrow. Risks and benefits discussed with the patient.
[2020-11-03] MEDS: Enoxaparin 40 MG/0.4 ML Syringe SC (15:43)
[2020-11-04] VITALS (11 sets, daily range): BP systolic 112–139; BP diastolic 71–90; PULSE 69–84; RESP 16–18; TEMP 36.6–37; O2SAT 98–100
[2020-11-04] MEDS: 0.9% Normal Saline 1,000 ML 150 ML IV ×3 (01:25→11:00)
--- NOTE | 2020-11-04 05:55 | EKG12_ITS ---
Test Reason : AM EKG Blood Pressure : / mmHG Vent. Rate : 075 BPM Atrial Rate : 075 BPM P-R Int : 144 ms QRS Dur : 080 ms QT Int : 410 ms P-R-T Axes : 052 005 048 degrees QTc Int : 457 ms Normal sinus rhythm Normal ECG Confirmed by BRANDO ROSADO, WINNIE ([id number]), editor map KATJA CURRY ([id number]) on 11/15/2020 8:13:01 AM Referred By: BRITTNEY Confirmed By:WINNIE MICHAELS MD
[2020-11-04 06:13] LABS: Absolute Lymphocyte Count 1.53 X10^3/uL (0.83-4.51); Absolute Neutrophil Count 2.3 X10^3/uL (2.0-7.7); Basophil# 0.04 X10^3/uL; Basophil% 0.9 % (0-1); Eosinophils% 10.9 % (0-5); Hematocrit 40.8 % (37-47); Hemoglobin 13.6 g/dL (12.0-15.0); Lymphocyte # 1.53 X10^3/ul (4.0); Lymphocyte % 33.5 % (19-41); Mean Corp Hgb Conc 33.3 g/dL (32-36); Mean Corpuscular Hgb 30.1 pg (27.0-32.0); Mean Corpuscular Volume 90.3 fL (81-99); Mean Platelet Vol. 10.1 fl (6.2-12.0); Monocyte# 0.24 X10^3/uL; Monocyte% 5.3 % (0-10); NRBC Flagged by Analyzer 0 % (0-5); Neutrophil # 2.25 X10^3/uL (2.7-7.7); Neutrophil % 49.2 % (47-70); Platelet Count 209 K/mm3 (150-450); RBC Distribution Width CV 12.1 % (11.6-14.6); RBC Distribution Width SD 40.1 fl (35.1-43.9); Red Blood Count 4.52 M/mm3 (4.2-5.4); White Blood Count 4.6 K/mm3 (4.4-11.0)
[2020-11-04 06:37] LABS: Anion Gap 3 (5-15); BUN 10 mg/dL (7-18); BUN/Creat Ratio 15.8 RATIO (10-20); Calcium,Total 8.1 mg/dL (8.5-10.1); Chloride 115 mmol/L (98-107); Creatinine, Serum 0.63 mg/dL (0.55-1.02); EST Glomerular Filtration Rate 103 mL/min (>60); Est Glom Filt Rate - Afr Amer 125 mL/min (>60); Estimated Creatinine Clearance 77.92 ml/min; Glucose 86 mg/dL (74-106); Phosphorus 2.9 mg/dL (2.5-4.9); Sodium Level 144 mmol/L (136-145)
[2020-11-04] MEDS: Pantoprazole Sodium 20 MG Tablet PO (11:17)
--- NOTE | 2020-11-04 12:20 | PCM.PROGNOTE ---
Patient Problems: Active and Suspected Problems (Last Reviewed 11/03/20 @ 07:[address] Samuel Duarte MD) Chest pain (Acute) Subjective: Patient seen and examined. Reports continued chest pressure however improved from prior. Denies shortness of breath, palpitations. Underwent cardiac catheterization - Physical Exam Vitals/I&O's: Vital Signs Temp Pulse Resp BP Pulse Ox 98.4 F 77 18 131/82 H 99 11/04/20 12:17 11/04/20 12:17 11/04/20 12:17 11/04/20 12:11/04/20 12:17 Oxygen Delivery Method Room Air Weight: 126 lb 8.725 oz Body Mass Index (BMI) 23.1 Intake and Output for Last 24 Hours 11/02/20 11/03/20 11/04/20 23:59 23:59 23:59 Intake Total 2652.5 / 2652.5 219 / 2190 Balance 2652.5 / 2652.5 2189 / 2190 General: Alert, Oriented x3, Cooperative HEENT: Atraumatic, PERRLA, EOMI, Normocephalic Neck: Supple, No JVD, Negative Carotid Bruits Lungs: Clear to auscultation, Normal air movement Cardiovascular: Regular rate, No murmurs Abdomen: Bowel Sounds Present, Soft, Non Tender, Non-Distended Extremities: No clubbing, No cyanosis, No edema, Capillary Refill Less than 3 Seconds Skin: No rashes, No breakdown Musculoskeletal: No Tenderness to Palpation of Joints or Extremities Neurological: Cranial nerves II-XII grossly intact, Neuro grossly intact Psych/Mental Status: Normal Affect, Appropriate Laboratory Results 11/03/20 12:28: Troponin I < 0.015 11/04/20 05:45: WBC 4.6, RBC 4.52, Hgb 13.6, Hct 40.8, MCV 90.3, MCH 30.1, MCHC 33.3, RDW Std Deviation 40.1, RDW Coeff of Angie 12.1, Plt Count 209, MPV 10.1, Immature Gran % (Auto) 0.200, Neut % (Auto) 49.2, Lymph % (Auto) 33.5, [place] % (Auto) 5.3, Eos % (Auto) 10.9 H, Baso % (Auto) 0.9, Absolute Neuts (auto) 2.3, Absolute Lymphs (auto) 1.53, Nucleated RBC % 0 11/04/20 05:45: Sodium 144, Potassium 4.0, Chloride 115 H, Carbon Dioxide 26.0, Anion Gap 3 L, BUN 10, Creatinine 0.63, Estim Creat Clear Calc 77.92, Est GFR (MDRD) Af Amer 125, Est GFR (MDRD) Non-Af 103, BUN/Creatinine Ratio 15.8, Glucose 86, Calcium 8.1 L, Phosphorus 2.9 Current Medications Acetaminophen (Acetaminophen 325 Mg Tablet) 650 mg PO Q6H PRN PRN PRN Reason: Pain Score 1-10/Temp > 100.7 F Al Hydroxide/Mg Hydroxide (Mag Hydrox/Al Hydrox/Simeth 30 Ml Udc) 30 ml PO Q6H PRN PRN PRN Reason: Gastric Burning Enoxaparin Sodium (Enoxaparin 40 Mg/0.4 Ml Syringe) 40 mg SC DAILY [facility] Last Admin: 11/04/20 12:03 Dose: Not Given Documented by: Sodium Chloride () 1,000 mls @ 150 mls/hr IV .Q6H40M [facility] Last Admin: 11/04/20 07:45 Dose: 150 mls/hr Documented by: Sodium Chloride () 250 mls @ 15 mls/hr IV .[id number] PRN PRN Reason: Saline Flush Sodium Chloride () 250 mls @ 15 mls/hr IV .[id number] PRN PRN Reason: Additional IVPB Infusion Sodium Chloride () 1,000 mls @ 150 mls/hr IV .Q6H40M [facility] Nitroglycerin (Nitroglycerin (Inpatient Use) 0.4 Mg Tab.Subl) 0.4 mg SUBLINGUAL Q5M PRN PRN Reason: CARDIAC/CHEST PAIN Ondansetron HCl (Ondansetron 4 Mg/2 Ml Vial) 4 mg IV Q8H PRN PRN PRN Reason: NAUSEA/VOMITING Oxycodone HCl (Oxycodone 5 Mg Tablet) 5 mg PO Q4H PRN PRN PRN Reason: Pain Score 4-10 Pantoprazole Sodium (Pantoprazole Sodium 20 Mg Tablet) 20 mg PO DAILY [facility] Last Admin: 11/04/20 11:17 Dose: 20 mg Documented by: Potassium Chloride (Potassium Chloride 20 Meq Tablet) 20 meq PO BIDCM [facility] Last Admin: 11/04/20 11:17 Dose: 20 meq Documented by: Sodium Chloride (0.9% Saline Lock 10 Ml Syringe) 10 - 40 ml IV UD PRN PRN Reason: SALINE FLUSH Medical Necessity - Tobacco Use Smoking Status: Former smoker Assessment/Plan All Active Problems (Last Reviewed 11/03/20 @ 07:[address] Samuel Duarte MD) Chest pain (Acute) 1. Chest pain, abnormal stress test 2. GERD-continue PPI. DVT prophylaxis- Lovenox sc This patient was seen by RANDALL Reilly under the supervision of Dr. Duarte.
--- NOTE | 2020-11-04 13:49 | DCINST_ITS ---
- Discharge Diagnoses Current Active Problems: Current Active and Chronic Problems (Last Reviewed 11/03/20 @ 07:[address] Samuel Duarte MD) GERD (gastroesophageal reflux disease) (Chronic) Chest pain (Acute) PLMD (periodic limb movement disorder) (Chronic) Mild sleep apnea (Chronic) Snoring (Chronic) Daytime somnolence (Chronic) Menopausal and postmenopausal disorder (Chronic) Chronic back pain (Chronic) Seasonal allergies (Chronic) You will use the following diet at home:: Cardiac Discharge Activity: Return to Normal Activity Call your doctor if you observe: Shortness of breath, Dizziness, Fainting spells, Chest pain Allergies/Adverse Reactions: Allergies No Known Allergies Allergy (Unverified 05/03/18 10:45) Medications to take at Discharge Omeprazole [Prilosec] 20 mg PO DAILY 11/03/20 Aspirin E.C. [Ecotrin] 81 mg PO DAILY@0800 #30 tab 11/04/20 Atorvastatin Calcium 20 mg PO QHS #30 tab 11/04/20 The following prescriptions were given: Atorvastatin Calcium 20 mg PO QHS #30 tab Transmission Status: Pending to [facility]/pharmacy #[id number] Aspirin E.C. [Ecotrin] 81 mg PO DAILY@0800 #30 tab Transmission Status: Pending to [facility]/pharmacy #[id number] Primary Care Physician: Jessica Huffman MD [Primary Care Provider] - Please follow up with your Primary Care Physician in: 1 Week Test Results: Test results from this visit will be discussed in further detail at your follow- up appointment, if applicable. Please Follow Up With: Britney Douglass MD When: 2-4 Weeks, may see [employer]ACH[employer] TENDER/PA Proposed Discharge Date: 11/04/20
--- NOTE | 2020-11-04 13:50 | PCM.DC.SUM ---
<Livia Tilley LEHR ATTENDANT - Last Filed: 11/04/20 13:55> Discharge Date and Diagnosis - Problem List Patient Problems: Active and Suspected Problems (Last Reviewed 11/03/20 @ 07:[address] Samuel Duarte MD) Chest pain (Acute) Date of Admission: 11/03/20 Date of Discharge: 11/04/20 - Primary Discharge Diagnosis Acute Problems: Active Problems (Last Reviewed 11/03/20 @ 07:[address] Samuel Duarte MD) 1. Chest pain, nonobstructive CAD 2. Hyperlipidemia 3. GERD - Secondary Discharge Diagnosis Chronic Problems: Chronic Problems (Last Reviewed 11/03/20 @ 07:[address] Samuel Duarte MD) GERD (gastroesophageal reflux disease) (Chronic) PLMD (periodic limb movement disorder) (Chronic) Mild sleep apnea (Chronic) Snoring (Chronic) Daytime somnolence (Chronic) Menopausal and postmenopausal disorder (Chronic) Chronic back pain (Chronic) Seasonal allergies (Chronic) Hospital Course and Treatment Imaging Results: Diagnostic Data Chest X-Ray 11/03/20 06:06 IMPRESSION: COPD. Calcified nodule in the left base possible granuloma. Correlation to previous examination and history recommended. Otherwise follow-up examination for stability assessment advised. Electronically Signed: Marti Baker MD at 6:43 EST , Service support , Dr. Douglass- Cardiology Operations: None Procedures: Cardiac catheterization, Stress test Summary of Care Provided: The patient is a 55 year old F admitted 11/03/2020 due to chest pressure x1 week. 1. Chest pain, nonobstructive CAD-troponin negative. Cardiology consulted due to abnormal stress test. Patient underwent cardiac catheterization which demonstrated 60% diagonal stenosis and 40% LAD stenosis, nonobstructive CAD. Initiated on aspirin and statin. Follow-up with cardiology in 2 weeks. 2. Hyperlipidemia-initiated on statin. 3. GERD-continue PPI. May increase PPI to 40 mg daily or twice daily if uncontrolled reflux symptoms. Patient seen and examined prior to discharge. Physical assessment as noted below. Patient is stable for discharge with follow up recommendations as noted above. This patient was seen by RANDALL Reilly under the supervision of Dr. Duarte. Patient Problems: Active and Suspected Problems (Last Reviewed 11/03/20 @ 07:[address] Samuel Duarte MD) Chest pain (Acute) - Physical Exam Vitals/I&O's: Vital Signs Temp Pulse Resp BP Pulse Ox 98.4 F 84 18 131/80 H 98 11/04/20 12:17 11/04/20 13:06 11/04/20 13:06 11/04/20 13:06 11/04/20 13:06 Oxygen Delivery Method Room Air Weight: 126 lb 8.725 oz Body Mass Index (BMI) 23.1 Intake and Output for Last 24 Hours 11/02/20 11/03/20 11/04/20 23:59 23:59 23:59 Intake Total 2652.5 / 2652.5 2189 Balance 2652.5 / 2652.5 2189 General: Alert, Oriented x3, Cooperative HEENT: Atraumatic, PERRLA, EOMI, Normocephalic Neck: Supple, No JVD, Negative Carotid Bruits Lungs: Clear to auscultation, Normal air movement Cardiovascular: Regular rate, No murmurs Abdomen: Bowel Sounds Present, Soft, Non Tender, Non-Distended Extremities: No clubbing, No cyanosis, No edema, Capillary Refill Less than 3 Seconds Skin: No rashes, No breakdown Musculoskeletal: No Tenderness to Palpation of Joints or Extremities Neurological: Cranial nerves II-XII grossly intact, Neuro grossly intact Psych/Mental Status: Normal Affect, Appropriate Laboratory Results 11/04/20 05:45: WBC 4.6, RBC 4.52, Hgb 13.6, Hct 40.8, MCV 90.3, MCH 30.1, MCHC 33.3, RDW Std Deviation 40.1, RDW Coeff of Angie 12.1, Plt Count 209, MPV 10.1, Immature Gran % (Auto) 0.200, Neut % (Auto) 49.2, Lymph % (Auto) 33.5, Lane % (Auto) 5.3, Eos % (Auto) 10.9 H, Baso % (Auto) 0.9, Absolute Neuts (auto) 2.3, Absolute Lymphs (auto) 1.53, Nucleated RBC % 0 11/04/20 05:45: Sodium 144, Potassium 4.0, Chloride 115 H, Carbon Dioxide 26.0, Anion Gap 3 L, BUN 10, Creatinine 0.63, Estim Creat Clear Calc 77.92, Est GFR (MDRD) Af Amer 125, Est GFR (MDRD) Non-Af 103, BUN/Creatinine Ratio 15.8, Glucose 86, Calcium 8.1 L, Phosphorus 2.9 Current Medications Acetaminophen (Acetaminophen 325 Mg Tablet) 650 mg PO Q6H PRN PRN PRN Reason: Pain Score 1-10/Temp > 100.7 F Al Hydroxide/Mg Hydroxide (Mag Hydrox/Al Hydrox/Simeth 30 Ml Udc) 30 ml PO Q6H PRN PRN PRN Reason: Gastric Burning Enoxaparin Sodium (Enoxaparin 40 Mg/0.4 Ml Syringe) 40 mg SC DAILY [facility] Last Admin: 11/04/20 12:03 Dose: Not Given Documented by: Sodium Chloride () 1,000 mls @ 150 mls/hr IV .Q6H40M [facility] Last Admin: 11/04/20 07:45 Dose: 150 mls/hr Documented by: Sodium Chloride () 250 mls @ 15 mls/hr IV .[id number] PRN PRN Reason: Saline Flush Sodium Chloride () 250 mls @ 15 mls/hr IV .[id number] PRN PRN Reason: Additional IVPB Infusion Sodium Chloride () 1,000 mls @ 150 mls/hr IV .Q6H40M [facility] Last Admin: 11/04/20 11:00 Dose: 150 mls/hr Documented by: Nitroglycerin (Nitroglycerin (Inpatient Use) 0.4 Mg Tab.Subl) 0.4 mg SUBLINGUAL Q5M PRN PRN Reason: CARDIAC/CHEST PAIN Ondansetron HCl (Ondansetron 4 Mg/2 Ml Vial) 4 mg IV Q8H PRN PRN PRN Reason: NAUSEA/VOMITING Oxycodone HCl (Oxycodone 5 Mg Tablet) 5 mg PO Q4H PRN PRN PRN Reason: Pain Score 4-10 Pantoprazole Sodium (Pantoprazole Sodium 20 Mg Tablet) 20 mg PO DAILY [facility] Last Admin: 11/04/20 11:17 Dose: 20 mg Documented by: Potassium Chloride (Potassium Chloride 20 Meq Tablet) 20 meq PO BIDCM [facility] Last Admin: 11/04/20 11:17 Dose: 20 meq Documented by: Sodium Chloride (0.9% Saline Lock 10 Ml Syringe) 10 - 40 ml IV UD PRN PRN Reason: SALINE FLUSH Discharge Diet: Low fat/ Low Cholesterol Discharge Activity: Return to Normal Activity Call your doctor if you observe: Shortness of breath, Dizziness, Fainting spells, Chest pain Home Medications: Medications to take at Discharge Omeprazole [Prilosec] 20 mg PO DAILY 11/03/20 Aspirin E.C. [Ecotrin] 81 mg PO DAILY@0800 #30 tab 11/04/20 Atorvastatin Calcium 20 mg PO QHS #30 tab 11/04/20 Following Prescriptions Were Given to Patient: Atorvastatin Calcium 20 mg PO QHS #30 tab Transmission Status: [facility] by [id number] Aspirin E.C. [Ecotrin] 81 mg PO DAILY@0800 #30 tab Transmission Status: [facility] by [id number] Primary Care Physician: Jessica Huffman MD [Primary Care Provider] - Please follow up with your Primary Care Physician in: 1 Week Please Follow Up With: Britney Douglass MD When: 2-4 Weeks, may see LEHR ATTENDANT/PA Disposition: Home Minutes spent on discharge:: 35 Patient Condition:: Stable Medical Necessity - Tobacco Use Smoking Status: Former smoker Meaningful Use Info Meaningful Use Diagnoses (Choose all that apply): None applicable <Samuel Duarte - Last Filed: 11/04/20 14:47> Discharge Date and Diagnosis - Primary Discharge Diagnosis Acute Problems: Active Problems (Last Reviewed 11/03/20 @ 07:[address] Samuel Duarte MD) Chest pain (Acute) - Secondary Discharge Diagnosis Chronic Problems: Chronic Problems (Last Reviewed 11/03/20 @ 07:[address] Samuel Duarte MD) GERD (gastroesophageal reflux disease) (Chronic) PLMD (periodic limb movement disorder) (Chronic) Mild sleep apnea (Chronic) Snoring (Chronic) Daytime somnolence (Chronic) Menopausal and postmenopausal disorder (Chronic) Chronic back pain (Chronic) Seasonal allergies (Chronic) Hospital Course and Treatment Summary of Care Provided: This patient was seen in conjunction with RANDALL Reilly . I have independently interviewed and examined the patient and reviewed pertinent historical, laboratory, and other data. Please refer to Livia Jarek, LEHR ATTENDANT-C note for details of this patient's presentation, findings, and recommendations. I have reviewed Livia Tilley NP-C note and concur with documented findings. In brief, patient is a 55-year-old lady admitted with chest pressure. Admitted to monitored bed [place] ruled out with serial cardiac enzymes underwent a nuclear stress test which do not show any ST-T changes however she did develop chest pain during the exercise stress test cardiology subsequently on consulted patient underwent left heart catheterization which demonstrated mild to moderate LAD optimization of medical therapy advised by cardiology Hospital course: As documented above - Physical Exam Vitals/I&O's: Vital Signs Temp Pulse Resp BP Pulse Ox 98.4 F 84 18 131/80 H 98 11/04/20 12:17 11/04/20 13:06 11/04/20 13:06 11/04/20 13:06 11/04/20 13:06 Oxygen Delivery Method Room Air Weight: 57.4 kg Body Mass Index (BMI) 23.1 Intake and Output for Last 24 Hours 11/02/20 11/03/20 11/04/20 23:59 23:59 23:59 Intake Total 2652.5 / 2652.5 3672.5 / 3672.5 Balance 2652.5 / 2652.5 3672.5 / 3672.5 Laboratory Results 11/04/20 05:45: WBC 4.6, RBC 4.52, Hgb 13.6, Hct 40.8, MCV 90.3, MCH 30.1, MCHC 33.3, RDW Std Deviation 40.1, RDW Coeff of Angie 12.1, Plt Count 209, MPV 10.1, Immature Gran % (Auto) 0.200, Neut % (Auto) 49.2, Lymph % (Auto) 33.5, Lane % (Auto) 5.3, Eos % (Auto) 10.9 H, Baso % (Auto) 0.9, Absolute Neuts (auto) 2.3, Absolute Lymphs (auto) 1.53, Nucleated RBC % 0 11/04/20 05:45: Sodium 144, Potassium 4.0, Chloride 115 H, Carbon Dioxide 26.0, Anion Gap 3 L, BUN 10, Creatinine 0.63, Estim Creat Clear Calc 77.92, Est GFR (MDRD) Af Amer 125, Est GFR (MDRD) Non-Af 103, BUN/Creatinine Ratio 15.8, Glucose 86, Calcium 8.1 L, Phosphorus 2.9 Current Medications Acetaminophen (Acetaminophen 325 Mg Tablet) 650 mg PO Q6H PRN PRN PRN Reason: Pain Score 1-10/Temp > 100.7 F Al Hydroxide/Mg Hydroxide (Mag Hydrox/Al Hydrox/Simeth 30 Ml Udc) 30 ml PO Q6H PRN PRN PRN Reason: Gastric Burning Enoxaparin Sodium (Enoxaparin 40 Mg/0.4 Ml Syringe) 40 mg SC DAILY [facility] Last Admin: 11/04/20 12:03 Dose: Not Given Documented by: Sodium Chloride () 1,000 mls @ 150 mls/hr IV .Q6H40M [facility] Last Infusion: 11/04/20 14:21 Dose: Infused Documented by: Sodium Chloride () 250 mls @ 15 mls/hr IV .[id number] PRN PRN Reason: Saline Flush Sodium Chloride () 250 mls @ 15 mls/hr IV .[id number] PRN PRN Reason: Additional IVPB Infusion Sodium Chloride () 1,000 mls @ 150 mls/hr IV .Q6H40M [facility] Last Infusion: 11/04/20 14:17 Dose: 0 mls/hr Documented by: Nitroglycerin (Nitroglycerin (Inpatient Use) 0.4 Mg Tab.Subl) 0.4 mg SUBLINGUAL Q5M PRN PRN Reason: CARDIAC/CHEST PAIN Ondansetron HCl (Ondansetron 4 Mg/2 Ml Vial) 4 mg IV Q8H PRN PRN PRN Reason: NAUSEA/VOMITING Oxycodone HCl (Oxycodone 5 Mg Tablet) 5 mg PO Q4H PRN PRN PRN Reason: Pain Score 4-10 Pantoprazole Sodium (Pantoprazole Sodium 20 Mg Tablet) 20 mg PO DAILY [facility] Last Admin: 11/04/20 11:17 Dose: 20 mg Documented by: Potassium Chloride (Potassium Chloride 20 Meq Tablet) 20 meq PO BIDCM [facility] Last Admin: 11/04/20 11:17 Dose: 20 meq Documented by: Sodium Chloride (0.9% Saline Lock 10 Ml Syringe) 10 - 40 ml IV UD PRN PRN Reason: SALINE FLUSH OBSV E&M: 00512 Observation care discharge
--- NOTE | 2020-11-05 17:24 | CL.I_ITS ---
Patient Name: LACHELLE WADDELL Study Date: 11/04/2020 Performing: Mine Douglass MD Ht: 62 inches 157 cm : 1965 Wt: 125.8 lbs 57 kg Age: 55 Gender: female BSA: 1.57 PROCEDURE(S) PERFORMED [id number]-[id number]/COR/LV [id number], CORONARY OR GRAFT, INITIAL VESSEL [id number], CORONARY OR GRAFT, EACH ADD'L VESSEL CLINICAL PROFILE AND CO-MORBIDITIES Indications: Worsening Angina Heart Failure: None Stress/Imaging Stress Test w/SPECT MPI: Yes Result: Positive Intermediate Risk Stress Test with S PECT MPI: Positive Intermediate Risk CAD Presentations: Unstable angina. CONCLUSIONS CAD as described. Preserved EF. No significant or MR RECOMMENDATIONS Medical therapy for CAD DESCRIPTION OF PROCEDURE The patient arrived to the procedure lab. The risks and benefits of the procedure as well as a full d escription of our services here and lack of surgical backup were fully explained to the patient and/o r their significant other prior to the catheterization. The Timeout was completed, verifying the rick ect patient and procedure. The patient's procedural site was prepped and draped in the usual fashion. Local anesthetic was given subcutaneously to right radial region with Lidocaine 2%. Using a modified Seldinger technique, arterial access was obtained via the right radial artery, a 6Fr sheath was inse rted.. Left Coronary Artery selective angiography was performed in multiple views using a 5 Fr. JL3. 5 catheter. Left Ventriculography was performed in DIAZ projection using a 5 Fr. Pigtail catheter. Rig Coronary Artery selective angiography was then performed in multiple views using a 5 Fr. JR 4 cath eter XB 3.0 Guide catheter was inserted and engaged into the LCA. The FFR/iFR wire was inserted. Adeno sine was then given per protocol. Pressures and FFR/iFR were then recorded. FFR Ratio Baseline: 0.97 FFR Ratio post Adenosine: 0.95 FFR Ratio Baseline: 0.98 Adenosine was then given per protocol. FFR Ra go post Adenosine: 0.96 The FFR/iFR wire was then removed. The arterial sheath was pulled and a TR Band was applied for hemostasis CORONARY ANGIOGRAPHY DOMINANCE: Right Dominant LEFT HEART ASSESSMENT Left Ventricular Ejection Fraction: by LV Gram 60 % Normal LV wall motion LEFT MAIN: No significant disease noted LEFT ANTERIOR DESCENDING ARTERY: PROX LAD: 50 % Stenosis, FFR Ratio: 0.96 DIAGONAL 1: Ostial - 60 % Stenosis, Ostial - FFR Ratio: 0.95 CIRCUMFLEX ARTERY: Mild luminal irregularities RIGHT CORONARY ARTERY: Mild luminal irregularities VALVE FINDINGS: No Aortic Valve Stenosis No Mitral Insufficency INTERVENTION INFORMATION LESION SITE: 1st Diagonal (Ostial) Lesion Devices: IGT Devices ( Formerly [place]) Coronary FFR Wire Cardinal 6 Fr XB3.0 100cm Guide Catheter LESION SITE: LAD (Proximal) Lesion Devices: IGT Devices ( Former[employer] [place]) Coronary FFR Wire Cardinal 6 Fr XB3.0 100cm Guide Catheter COMPLICATIONS No Complications PROCEDURE MEDICATIONS Versed 1 mg IV Fentanyl 50 mcg IV Oxygen: 2 L/min via nasal cannula Baby Aspirin (81mg) 1 Tabs PO 11/04/2020 09:36:03 Adenosine drip for FFR 16 ml IV 11/04/2020 10:32:30 Adenosine drip for FFR 16 ml IV @ 11/04/2020 10:35:43 Heparin given IA 11/04/2020 10:02:58 Heparin 2000 unit(s) IV 11/04/2020 10:20:54 Verapamil 2.5mg, Ntg 100mcgs, 3000 units of Heparin given IA 11/04/2020 10:02:58 SUMMARY OF HEMODYNAMIC DATA Time AIR REST ECG 09:14:45 AO 112/76 (97) SA 10:06:50 LV 137/8, 13 10:15:01 LV 116/4, 0 10:15:08 Signed By Mine Douglass MD On 11/05/2020 17:23:31 Mine Douglass MD
== END 2020-11-04 13:49 | disposition home or self-care (01) ==
LOC: ED 06:42 → PCU 07:27
PROVIDERS: Admitting Provider Internal Medicine; Emergency Provider Emergency Medicine; PCP Family Medicine; Visit Provider Internal Medicine
DX: I25.110 Atherosclerotic heart disease of native coronary artery with unstable angina pectoris (principal); R07.89 Other chest pain; K21.9 Gastro-esophageal reflux disease without esophagitis; Z87.891 Personal history of nicotine dependence; G47.30 Sleep apnea, unspecified; R00.2 Palpitations; E78.5 Hyperlipidemia, unspecified; Z79.899 Other long term (current) drug therapy; R94.39 Abnormal result of other cardiovascular function study
CPT/HCPCS: 36415; 71045; 78452; 80048; 84100; 84484; 85025; 93005; 93017; 93458; 93571; 93572; 99152; 99153; 99285; A9500; J0153; J7030; Q9967; A4216; C1769; C1887; C1894

== ENCOUNTER → 2020-11-11 11:10 | Outpatient (CLI) | payer BC, SELFPAY ==
[2020-11-03 09:47] VITALS: BMI 23.1
--- NOTE | 2020-11-11 11:13 | BI_ITS ---
MAMMOGRAPHY - BILATERAL SCREENING REASON FOR EXAM: Female, 55 years old. Routine annual screening examination. PERTINENT HISTORY: Non-contributory. TECHNIQUE: Digital bilateral breast mary kay (3D mammographic acquisition) in the CC and MLO projections. 2-D mediolateral oblique (MLO) and craniocaudad (CC) views of both breasts were obtained. CAD: Full Field Digital Mammography with Computer Added Detection was performed. COMPARISON: Comparison is made with prior study dated 10/03/2019 and 10/02/2018. FINDINGS: Breast Composition: The breasts are heterogeneously dense, which may obscure small masses. There are no dominant masses or suspicious calcifications. No other significant abnormalities are identified. There has been no significant change since the prior study. BI/SCREEN MAMM (CAD) W/MARY KAY BILAT IMPRESSION: Stable bilateral screening mammogram. Yearly follow-up mammogram recommended. (A) ASSESSMENT CATEGORY: BIRADS Category 1: Negative. A letter regarding these results will be sent to the patient by the facility within 30 days. Approximately 10% of breast cancers are not detected by mammography. A normal mammogram should not delay biopsy of a clinically suspicious abnormality. [id number] Electronically Signed: Ashok Mccurdy, at 12:05 EST , Service support ,
== END ==
PROVIDERS: PCP Family Medicine; Referring Provider Obstetrics & Gynecology Gynecology; Visit Provider Obstetrics & Gynecology Gynecology
DX: Z12.31 Encounter for screening mammogram for malignant neoplasm of breast (principal)
CPT/HCPCS: 77063; 77067

== ENCOUNTER 2021-10-05 12:33 | Outpatient (CLI) | payer OTHER, SELFPAY ==
[2021-10-05 12:54] VITALS: BP 120/74; PULSE 97; RESP 16; TEMP 37.2; O2SAT 98; BMI 22.8
[2021-10-05] MEDS: 0.9% Saline Lock 10 ML Syringe IV (12:59)
[2021-10-05 13:31] VITALS: BP 128/71; PULSE 93; RESP 16; TEMP 36.8; O2SAT 99
[2021-10-05 14:31] VITALS: BP 117/71; PULSE 92; RESP 16; TEMP 36.6; O2SAT 100
== END 2021-10-05 14:31 | disposition home or self-care (01) ==
LOC: MS3OUT 12:33 → MS3 12:34
PROVIDERS: PCP Family Medicine; Referring Provider Nurse Practitioner Adult Health; Visit Provider Nurse Practitioner Adult Health
DX: Z23 Encounter for immunization (principal); U07.1 COVID-19
CPT/HCPCS: J7050; M0245; Q0245; A4216

== ENCOUNTER → 2021-11-14 15:44 | Outpatient (CLI) | payer OTHER, SELFPAY ==
--- NOTE | 2021-11-14 15:50 | BI_ITS ---
MAMMOGRAPHY - BILATERAL SCREENING 3-D TOMOSYNTHESIS REASON FOR EXAM: Female, 56 years old. SCREENING PERTINENT HISTORY: No significant family history. TECHNIQUE: 2-D mammograms and 3-D Tomosynthesis of the breast (s) were performed. CAD was performed. COMPARISON: 11/11/2020 FINDINGS: The breast composition is heterogeneously dense that can obscure small breast masses. Scattered benign calcifications are seen. No dense spiculated masses or suspicious microcalcifications are identified. No architectural distortion is identified. There is no skin thickening or retraction. There has been no significant change since the prior study. BI/SCRN MAMM (CAD)W/MARY KAY BILAT IMPRESSION: No mammographic signs of malignancy. Routine yearly mammograms recommended. ASSESSMENT CATEGORY: BIRADS Category 1: Negative. A letter regarding these results will be sent to the patient by the facility within 30 days. FOLLOW UP RECOMMENDATION: Yearly follow up mammogram recommended. (A) Approximately 10% of breast cancers are not detected by mammography. A normal mammogram should not delay biopsy of a clinically suspicious abnormality. Electronically Signed: Fredrick Alaniz MD at 16:25 EST Tel , Service support ,
== END ==
PROVIDERS: PCP Family Medicine; Referring Provider Obstetrics & Gynecology Gynecology; Visit Provider Obstetrics & Gynecology Gynecology
DX: Z12.31 Encounter for screening mammogram for malignant neoplasm of breast (principal)
CPT/HCPCS: 77063; 77067

== ENCOUNTER 2021-12-14 06:40 | Outpatient (CLI) | payer BC, SELFPAY ==
--- NOTE | 2021-12-15 13:11 | PFT ---
INTRODUCTION: The patient is a 56-year-old female that presents for pulmonary function studies secondary to a diagnosis of shortness of breath. Respiratory therapy reported good patient effort. Bronchodilators were used during testing. INTERPRETATION: Forced expiration spirometry demonstrates no evidence of a large airways obstructive ventilatory defect. There was no significant response to aerosolized bronchodilators. Spirograms are of good quality and plateau normally. Body plethysmography was performed and reveals lung volumes to be within normal limits. Diffusing capacity by single breath CO is also within normal limits. IMPRESSION: Grossly normal pulmonary function studies.
== END 2021-12-14 23:59 | disposition short-term general hospital (02) ==
LOC: PSN 06:43
PROVIDERS: PCP Family Medicine; Referring Provider Family Medicine; Visit Provider Family Medicine
DX: R06.02 Shortness of breath (principal); Z87.891 Personal history of nicotine dependence
CPT/HCPCS: 94060; 94726; 94729

== ENCOUNTER 2021-12-29 15:48 | Outpatient (CLI) | payer BC, SELFPAY ==
--- NOTE | 2021-12-29 15:51 | RAD_ITS ---
STUDY: X-RAY - LUMBAR SPINE REASON FOR EXAM: Female, 56 years old. Lumbar sprain. Chronic back pain recently worsening. TECHNIQUE: 4 view(s) of the lumbar spine were obtained. COMPARISON: None FINDINGS: Normal lumbar lordosis. Dextroscoliosis. There is a normal alignment of the vertebrae. Normal vertebral bodies and endplates. Normal disc space heights. There is no evidence of acute fracture or loss of vertebral axial height. There is no demonstrated spondylolysis of the pars interarticulares. The soft tissue structures are unremarkable. RAD/L/S Spine Min 4 Views IMPRESSION: Normal x-ray examination of the lumbar spine. Electronically Signed: Cas Martinez DO at 22:50 EST ,
== END 2021-12-29 23:59 | disposition home or self-care (01) ==
LOC: RAD 15:49
PROVIDERS: PCP Family Medicine; Referring Provider Chiropractor; Visit Provider Chiropractor
DX: S33.5XXA Sprain of ligaments of lumbar spine, initial encounter (principal)
CPT/HCPCS: 72110

== ENCOUNTER 2022-01-30 16:00 | Outpatient (RCR) | payer BC, SELFPAY ==
--- NOTE | 2022-01-11 17:33 | HP.PTEVAL_ITS ---
Patient's Visit Information LACHELLE WADDELL is a 56 year old F referred to Physical Therapy by Dr. Junaid Rainey DC with a diagnosis of LUMBAR SPRAIN. Date of Evaluation: 01/11/22 Physical Therapist: Sonu Price, PT, Cert MDT, OCS - Visit Plan Frequency: 2x /Week Duration: 3 Weeks Plan: PT INTERVETIONS RENETTA EX'S DLS ABD/BACK , MANUAL THERAPY ,AND MODALTIES - Subjective This 56 y/o female presents to physical therapy with lumbar sprain. Patient has lumbar pain for~ 2 years . Patient has been seeing chiropractor many years. But recently symptoms are getting worse. Seems my back is weak. Patient had x-rays . Location of pain right lumbar to buttock , Aggravating factors bending ,lifting , sitting and standing on concrete at work. Alleviating factors walking ,on the move. Denies paresthesia/tingling-. Coughing/sneezing -. Bowel/bladder-. Patient doesn't sleep well at night. Patient pain affects QOL and function to include job demands. Patient does yoga. SOCAIL: . 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 GAIT: reciprocal pattern. PALPTION: symmetrical. NEURO: denies paresthesia/tingling , reflexes L3-4,L4-5,L5-S1 2/3. LUMBAR ROM: flexion mon loss, extension min/mod loss, side glides min loss. FLEXABLITY: hams min tight - Special Tests L/S Slump test left side: Negative L/S Slump test right side: Negative L/S Left Straight Leg Raise: Negative L/S Right Straight Leg Raise: Negative Lumbar Standing: Flexion - Mechanical Response: No effect Lumbar Standing: Flexion - Symptoms During Testing: Increases Lumbar Standing: Flexion - Symptoms After Testing: Worse Lumbar Standing: Extension - Mechanical Response: No effect Lumbar Standing: Extension - Symptoms During Testing: Increases Lumbar Standing: Extension - Symptoms After Testing: No worse Lumbar Standing: Right Side Glides - Mechanical Response: No effect Lumbar Standing: Right Side [place] - Symptoms During Testing: Increases Lumbar Standing: Right Side [place] - Symptoms After Testing: No worse Lumbar Standing: Left Side [place] - Mechanical Response: No effect Lumbar Standing: Left Side [place] - Symptoms During Testing: No effect Lumbar Standing: Left Side [place] - Symptoms After Testing: No effect Comments:: doing overpressure over counter better with extension Lumbar Lying: Flexion - Mechanical Response: No effect Lumbar Lying: Flexion - Symptoms During Testing: Increases Lumbar Lying: Flexion - Symptoms After Testing: Worse Lumbar Lying: Extension - Mechanical Response: Increases motion Lumbar Lying: Extension - Symptoms During Testing: Decreases Lumbar Lying: Extension - Symptoms After Testing: Better - Balance/Special Test Scores Oswestry Low Back Score: 19 - Goals Goal 1:: Patient to be I with HEP Goal Time Frame: 4-6 Weeks Goal 2:: Patient to improve posture/body mechanics 80% of the time at job demands. Goal Time Frame: 4-6 Weeks Goal 3:: Patient to demonstrate 50% improvement with improve function and decrease symptoms Goal Time Frame: 4-6 Weeks Goal 4:: Patient improve lumbar ROM for function of recovery to lift 50# boxes at work without symptomology. Goal Time Frame: 4-6 Weeks Goal 5:: Patient to improve oswesrty score by 5 points to improve function/kamilla demnads Goal Time Frame: 4-6 Weeks - Rehabilitation Potential Physical Therapy Diagnosis: This patient appears to have lumbar derangement with flexion and sitting worse with motion testing and sitting better with posture correction and extension thus benefit from skilled PT to address these impairments Rehabilitation Potential: Good - Anticipated Interventions Patient/Client Instruction: Educate patient on: Condition, Plan of Care For the Purpose of:: To decrease pain, To increase ROM, To improve muscle performance and motor function, To improve ability to perform ADL's, To increase tolerance to activity/condition/position, To improve ability of physical actions for home/community/work/leisure, To improve health of tissue, To decrease soft tissue restriction, To increase flexibility/ROM Therapeutic Exercise to Include: Strength training, Body mechanics, Postural training, Flexibilty training, Dynamic Lumbar Stabilization, Renetta Exercises For the Purpose of:: To decrease pain, To increase ROM, To improve muscle performance and motor function, To increase tolerance to activity/condition/position, To improve ability of physical actions for home/community/work/leisure, To improve health of tissue, To decrease soft tissue restriction, To increase flexibility/ROM, To reduce risk of recurrence, To prevent re-injury TENS: Yes IF ES: Yes Cryotherapy (ice pack, ice massage): Yes Thermo therapy (hot pack): Yes Ultrasound (thermal/non thermal): Yes For the Purpose of:: To decrease pain, To increase ROM, To improve nutrient delivery to tissue, To increase oxygenation perfusion, To improve health of tissue, To decrease soft tissue restriction Thank you for the opportunity to evaluate your patient. For Medicare and Medicare HMO plans, please review the plan of care and approve it. It will need to be FAXED BACK to us at [phone] for Medicare purposes. For Medicare only, by signing this I certify the plan of care. Please let me know if there are questions or concerns regarding this plan of care. Physician Signature: Date:
--- NOTE | 2022-05-31 16:26 | HP.PTDCSUM ---
It has been my pleasure to treat LACHELLE WADDELL referred by Dr. Junaid Rainey DC, with the diagnosis of LUMBAR SPRAIN for a total of 5 visit(s). Discharge Date: Please see the following information for a summary of their discharge status. Subjective: Pain about same but not worse Right Back Pain Intensity (Out of 10): 5 Objective/Function: Chandni tx well with ex's with no immediate effectiveness with changing pain but bit no increase in pain Goal 1:: Patient to be I with HEP Goal 2:: Patient to improve posture/body mechanics 80% of the time at job demands. Goal 3:: Patient to demonstrate 50% improvement with improve function and decrease symptoms Goal 4:: Patient improve lumbar ROM for function of recovery to lift 50# boxes at work without symptomology. Goal 5:: Patient to improve oswesrty score by 5 points to improve function/kamilla demnads Plan: PT INTERVETIONS RENETTA EX'S DLS ABD/BACK , MANUAL THERAPY ,AND MODALTIES If there are questions or concerns regarding this patient's physical therapy, please feel free to call me at [phone]. Thank you for the referral of this patient. Sincerely, Sonu Price, PT, Cert MDT, OCS Balance/Gait/Functional tests - Balance/Special Test Scores Oswestry Low Back Score: 19
== END 2022-01-30 19:00 | disposition home or self-care (01) ==
LOC: PT 16:00
PROVIDERS: PCP Family Medicine; Referring Provider Chiropractor; Visit Provider Chiropractor
DX: S33.5XXD Sprain of ligaments of lumbar spine, subsequent encounter (principal)
CPT/HCPCS: 97110; 97162

== ENCOUNTER → 2022-06-15 | Outpatient (CLI) | payer BC, SELFPAY ==
--- NOTE | 2022-06-15 07:14 | MRI_ITS ---
STUDY: MRI LUMBAR SPINE WITHOUT CONTRAST REASON FOR EXAM: Female, 56 years old. PAIN X 2 YRS, POSSIBLE SI JOINT ARTHRITIS/INFLAMMATION TECHNIQUE: Standardized fat and water weighted pulse sequences were obtained in the sagittal and axial planes. COMPARISON: Lumbar spine radiographs 09/07/2022 FINDINGS: T10-T11, T11-T12 and T12-L1: (Sagittal only). Normal endplates. Normal disc height, hydration and morphology. No ventral extra dural defects. Normal central canal and bilateral intervertebral neural foramina. Normal lumbar lordosis. There is no substantial scoliosis. Normal conus medullaris that terminates at the mid L1 vertebral body level. L1-2: Normal endplates. Normal disc height, hydration and morphology. Normal bilateral facet joints. Normal central canal and bilateral lateral recesses. Normal bilateral intervertebral neural foramina. L2-3: Normal endplates. Normal disc height, hydration and morphology. Normal bilateral facet joints. Normal central canal and bilateral lateral recesses. Normal bilateral intervertebral neural foramina. L3-4: Normal endplates. Normal disc height, hydration and morphology. Normal bilateral facet joints. Normal central canal and bilateral lateral recesses. Normal bilateral intervertebral neural foramina. L4-5: Normal endplates. Normal disc height, hydration and morphology. Moderate asymmetric degenerative facet arthropathy, left greater than right. Normal central canal and bilateral lateral recesses. Normal bilateral intervertebral neural foramina. L5-S1: Normal endplates. Mild disc space height narrowing. Moderately pronounced right degenerative facet arthropathy. Mild to moderate left degenerative facet arthropathy. Normal central canal and bilateral lateral recesses. Normal bilateral intervertebral neural foramina. Normal visualized sacral ala. Normal visualized paraspinous soft tissue structures. MRI/Spine Lumbar (Routine) IMPRESSION: 1. No MRI evidence of lumbar extruded disc fragment, spinal stenosis or nerve root displacement. 2. Moderately pronounced right L5-S1 degenerative facet arthropathy and mild to moderate left L5-S1 degenerative facet arthropathy. 3. Moderate asymmetric L4-L5 degenerative facet arthropathy, left greater than right. Electronically Signed: Stan Ochoa MD at 12:42 EDT ,
== END | disposition home or self-care (01) ==
PROVIDERS: PCP Family Medicine; Referring Provider Family Medicine; Visit Provider Family Medicine
DX: M47.818 Spondylosis without myelopathy or radiculopathy, sacral and sacrococcygeal region (principal)
CPT/HCPCS: 72148

== ENCOUNTER → 2022-11-03 | Outpatient (CLI) | payer BC, SELFPAY | END | disposition home or self-care (01) | LOC: LABSPEC 16:12 | PROVIDERS: PCP Family Medicine; Visit Provider Family Medicine | DX: N39.0 Urinary tract infection, site not specified (principal) | CPT/HCPCS: 87086; 87088 ==

== ENCOUNTER → 2022-11-15 | Outpatient (CLI) | payer BC, SELFPAY ==
--- NOTE | 2022-11-15 11:52 | US_ITS ---
INDICATION: FIBRIODS EXAMINATION: Ultrasound US Pelvis Non OB Limited With Transvaginal Imaging TECHNIQUE: Transabdominal pelvic ultrasound was performed. Grayscale, spectral waveform, and color flow Doppler evaluation of the adnexa. COMPARISON: October 02, 2019 FINDINGS: UTERUS: Anteverted. The uterus measures 10.8 x 7 x 6.1 cm. There are 3 fibroids measuring 2.1 x 1.9 x 1.2 cm, 5.2 x 5.2 x 6.3 cm and 2.3 x 2.1 x 1.7 cm. The endometrial stripe measures 4 mm in AP diameter which is within normal limits. RIGHT OVARY: 2.7 x 2.7 x 1.4 cm. Non-enlarged, normal echogenicity. There is normal arterial inflow and venous outflow present in the right ovary. LEFT OVARY: 2.9 x 2.4 x 1.9 cm. Non-enlarged, normal echogenicity. There is normal arterial inflow and venous outflow present in the left ovary. FREE FLUID: None. US/Pelvic (Non ) IMPRESSION: Mildly enlarged uterus with multiple fibroids. In general uterus has increased in size since prior exam. The largest fibroid is unchanged in size Electronically Signed: Jorje Bermudez MD at 17:29 EST Reading Location ID and State: [address] [place] [address] , Service support ,
--- NOTE | 2022-11-15 13:13 | BI_ITS ---
MAMMOGRAPHY - BILATERAL SCREENING REASON FOR EXAM: Female, 57 years old. Routine annual screening examination. PERTINENT HISTORY: Non-contributory. TECHNIQUE: Digital bilateral breast mary kay (3D mammographic acquisition) in the CC and MLO projections. 2-D mediolateral oblique (MLO) and craniocaudad (CC) views of both breasts were obtained. CAD: Full Field Digital Mammography with Computer Added Detection was performed. COMPARISON: 11/14/2021, 11/11/2020. FINDINGS: Breast Composition: The breasts are heterogeneously dense, which may obscure small masses. There are no dominant masses or suspicious calcifications. No other significant abnormalities are identified. There has been no significant change since the prior study. BI/SCRN MAMM (CAD)W/MARY KAY BILAT IMPRESSION: Stable bilateral screening mammogram. Yearly follow-up mammogram recommended. (A) ASSESSMENT CATEGORY: BIRADS Category 1: Negative. A letter regarding these results will be sent to the patient by the facility within 30 days. Approximately 10% of breast cancers are not detected by mammography. A normal mammogram should not delay biopsy of a clinically suspicious abnormality. Electronically Signed: Delvis Mireles, at 11:44 EST ,
== END | disposition home or self-care (01) ==
PROVIDERS: PCP Family Medicine; Visit Provider Obstetrics & Gynecology Gynecology
DX: Z12.31 Encounter for screening mammogram for malignant neoplasm of breast (principal); D25.9 Leiomyoma of uterus, unspecified
CPT/HCPCS: 76830; 76856; 77063; 77067

== ENCOUNTER → 2023-04-19 | Outpatient (CLI) | payer BC, SELFPAY ==
[2023-04-19 18:44] LABS: Absolute Lymphocyte Count 1.92 X10^3/uL (0.83-4.51); Absolute Neutrophil Count 4.2 X10^3/uL (2.0-7.7); Basophil# 0.05 X10^3/uL; Basophil% 0.7 % (0-1); Eosinophil# 0.55 X10^3/uL; Eosinophils% 7.8 % (0-5); Hematocrit 42.9 % (37-47); Hemoglobin 14.1 g/dL (12.0-15.0); Lymphocyte # 1.92 X10^3/ul (0.83-4.51); Lymphocyte % 27.4 % (19-41); Mean Corp Hgb Conc 32.9 g/dL (32-36); Mean Corpuscular Hgb 30.9 pg (27.0-32.0); Mean Corpuscular Volume 93.9 fL (81-99); Mean Platelet Vol. 10.7 fl (6.2-12.0); Monocyte# 0.32 X10^3/uL; Monocyte% 4.6 % (0-10); NRBC Flagged by Analyzer 0 % (0-5); Neutrophil # 4.16 X10^3/uL (2.7-7.7); Neutrophil % 59.2 % (47-70); Platelet Count 221 K/mm3 (150-450); RBC Distribution Width CV 12.3 % (11.6-14.6); RBC Distribution Width SD 42.8 fl (35.1-43.9); Red Blood Count 4.57 M/mm3 (4.2-5.4)
[2023-04-19 19:00] LABS: Ferritin 57 ng/mL (8-252); Thyroid Stim Hormone (TSH) 1.11 uIU/mL (0.358-3.74)
[2023-04-19 19:32] LABS: Vitamin B12 373 pg/mL (211-911)
== END | disposition home or self-care (01) ==
LOC: BFHLAB 15:57
PROVIDERS: PCP Family Medicine; Referring Provider Family Medicine; Visit Provider Family Medicine
DX: R53.83 Other fatigue (principal); D64.9 Anemia, unspecified
CPT/HCPCS: 36415; 82607; 82728; 84443; 85025

== ENCOUNTER → 2023-09-11 | Outpatient (CLI) | payer BC, SELFPAY ==
--- NOTE | 2023-09-11 12:45 | ECHOD_ITS ---
Reason For Study: CHEST PAIN Left Ventricle Normal size and thickness. The left ventricular ejection fraction is 65 %. Normal diastology for age. Right Ventricle Normal right ventricle. Atria The left and right atria are normal. Mitral Valve Mild (1+) mitral valve insufficiency. Tricuspid Valve Mild tricuspid valve insufficiency. Right ventricular systolic pressure estimated to be 37 mmHg. Aortic Valve Trisinus/trileaflet aortic valve. Pulmonic Valve The pulmonic valve is not well visualized. Great Vessels Normal sized aortic root. Pericardium/Pleural No pericardial effusion. Small left pleural effusion. MMode/2D Measurements & Calculations LVIDd: 4.5 cm IVSd: 0.93 cm LAV(MOD-sp4): 35.4 ml LVIDs: 2.8 cm LVPWd: 0.85 cm FS: 37.4 % LVAd ap4: 21.3 cm2 SV(MOD-sp4): 39.0 ml SV(sp4-el): 41.3 ml LVLd ap4: 7.1 cm EDV(MOD-sp4): 53.5 ml EDV(sp4-el): 54.5 ml LVAs ap4: 9.2 cm2 LVLs ap4: 5.5 cm ESV(MOD-sp4): 14.5 ml ESV(sp4-el): 13.2 ml EF(MOD-sp4): 72.9 % EF(sp4-el): 75.8 % LA dimension(2D): 3.4 cm LA A4 area: 13.1 cm2 RA A4 area: 11.9 cm2 TAPSE: 1.9 cm Time Measurements MV dec time: 0.09 sec Doppler Measurements & Calculations MV E max [place]: 88.9 cm/sec Lat Peak E' [place]: 11.1 cm/sec Med Peak E' [place]: 7.7 cm/sec MV A max [place]: 82.0 cm/sec E/E' lat: 8.0 E/E' med: 11.5 MV E/A: 1.1 MV V2 max: 89.6 cm/sec MV dec slope: 984.1 cm/sec2 Ao V2 max: 123.0 cm/sec MV max P.2 mmHg Ao max P.1 mmHg MV V2 mean: 74.5 cm/sec Ao V2 mean: 84.4 cm/sec MV mean P.3 mmHg Ao mean P.3 mmHg MV V2 VTI: 25.3 cm Ao V2 VTI: 25.7 cm AV (velocity ratio): 0.80 LV V1 max: 99.5 cm/sec PA V2 max: 88.0 cm/sec TR max [place]: 263.5 cm/sec LV V1 max P.0 mmHg PA V2 mean: 71.3 cm/sec TR max P.8 mmHg LV V1 mean P.2 mmHg LV V1 mean: 70.8 cm/sec LV V1 VTI: 20.5 cm ECHO/Echo Complete Interpretation Summary The left ventricular ejection fraction is 65 %. Mild (1+) mitral valve insufficiency. Mild tricuspid valve insufficiency. Right ventricular systolic pressure estimated to be 37 mmHg. Small left pleural effusion vs. loculated apical pericardial effusion. Recommen d CT scan for further evaluation. Ordering Physician: Jacob Tijerina Referring Physician: Jacob Tijerina Performed By: Rosie Javed RCS
== END | disposition home or self-care (01) ==
LOC: CVS 12:43
PROVIDERS: PCP Family Medicine; Referring Provider Internal Medicine Cardiovascular Disease; Visit Provider Internal Medicine Cardiovascular Disease
DX: R07.89 Other chest pain (principal); R00.2 Palpitations; I10 Essential (primary) hypertension; I25.10 Atherosclerotic heart disease of native coronary artery without angina pectoris
CPT/HCPCS: 93225; 93226; 93306

== ENCOUNTER → 2023-09-17 | Outpatient (CLI) | payer BC, SELFPAY ==
--- NOTE | 2023-09-17 07:15 | CT_ITS ---
INDICATION: small left pleural vs pericardial effusion on echo EXAMINATION: CT CHEST WITHOUT CONTRAST - CT Chest W/O Contrast Injection TECHNIQUE: Helically acquired images were obtained of the chest. A radiation dose optimization technique was used for this scan. IV Contrast dosage and agent: None. RADIATION DOSAGE (If Supplied By Facility): CTDIvol = ( 4.02 ) mGy, DLP = ( 144.46 ) mGycm COMPARISON: Chest x-ray of 11/03/2020 FINDINGS: LUNGS, PLEURA AND LARGE AIRWAYS: 7 mm pleural-based right apical nodular density best seen on axial image 18 series 4. There is a 6 mm groundglass nodule in the right upper lobe on image 27 series 4. Vague 2 mm nodule in the left upper lobe on image 48 series 4 laterally. Calcified granuloma in the left lower measuring about 1.2 cm. There is a 3 mm pleural-based left lower lobe nodule on image 100 series 4. No focal consolidation is seen. No pleural effusion or thickening. No pneumothorax. THYROID: No thyroid lesions. HEART AND PERICARDIUM: Heart size is normal. No pericardial effusion. CORONARY ARTERIES: Coronary artery calcification are seen. VESSELS: There are sclerotic calcifications of the aortic arch without evidence of aneurysm. MEDIASTINUM AND EMANUEL: No mediastinal or hilar adenopathy. Esophagus is unremarkable. No hiatal hernia. UPPER ABDOMEN: 7 mm cyst in the right lobe of the liver. BONES: No suspicious lytic or blastic abnormality. CT/Chest without Contrast IMPRESSION: 1. No evidence of pericardial effusion or pleural effusion. 2. Multiple small pulmonary nodules, the largest in the right upper lobe for which follow-up CT scan of the chest in 6 months is recommended. (Lung-RADS category 3.) 3. No focal acute pulmonary infiltrate or adenopathy Electronically Signed: Gopi Dao MD at 11:54 EDT ,
== END | disposition home or self-care (01) ==
LOC: CT 07:12
PROVIDERS: PCP Family Medicine; Referring Provider Internal Medicine Cardiovascular Disease; Visit Provider Internal Medicine Cardiovascular Disease
DX: J90 Pleural effusion, not elsewhere classified (principal); I31.39 Other pericardial effusion (noninflammatory); R07.89 Other chest pain
CPT/HCPCS: 71250

== ENCOUNTER → 2023-09-19 | Outpatient (CLI) | payer BC, SELFPAY ==
[2023-09-19 10:04] LABS: Anion Gap 8 (5-15); BUN 29 mg/dL (7-18); BUN/Creat Ratio 30.2 RATIO (10-20); Calcium,Total 9.3 mg/dL (8.5-10.1); Chloride 102 mmol/L (98-107); Cholesterol 264 mg/dL (200); Creatinine, Serum 0.96 mg/dL (0.55-1.02); EST Glomerular Filtration Rate 63 mL/min (>60); Est Glom Filt Rate - Afr Amer 76 mL/min (>60); Glucose 104 mg/dL (74-106); High Density Lipoprotein 70 mg/dL; Magnesium 2.3 mg/dL (1.6-2.6); Potassium 3.6 mmol/L (3.5-5.1); Sodium Level 139 mmol/L (136-145); Triglycerides 129 mg/dL; Very Low Density Lipoprotein 26 mg/dL (5-40)
--- NOTE | 2023-09-19 10:33 | STE_ITS ---
Reason For Study: PRIMARY HTN Stress Results Protocol: Zach Protocol Maximum Predicted HR: 161 bpm Target HR: 137 bpm % Maximum Predicted HR: 103 % DurationHeart Rate Stage (mm:ss) (bpm) BP Comment BASELINE 100 122/86 STAGE 1 3:00 129 120/72NO SOB, NO CHEST PAIN STAGE 2 3:00 146 132/82 STAGE 3 3:00 166 138/74 RECOVERY 112 129/80 Stress Duration: 9:00 mm:ss Maximum Stress HR: 166 bpm Baseline Echocardiogram Findings Stress Echo Wall motion Data Resting WM Intermediate WM Stress WM Resting Wall Motion Wall Motion Stress No regional wall motion All segments Hyperkinetic. abnormalities noted. EKG Data Nonspecific ST changes noted on standing resting EKG. ST depressions in inferior and lateral leads in recovery. Nondiagnostic in view of baseline abnormality. ECHO/Stress Test Echo w/o Contrast Interpretation Summary Exercised on the treadmill according to Zach protocol for 9 minutes. No chest pain reported. ST depressions in inferior and lateral leads in recovery. Nondiagnostic in view of baseline abnormality. No echo evidence of exercise-induced ischemia. Ordering Physician: Jacob Tijerina Referring Physician: Jacob Tijerina Performed By: Lucy Duarte, RDCS, RVT
== END | disposition home or self-care (01) ==
PROVIDERS: PCP Family Medicine; Referring Provider Internal Medicine Cardiovascular Disease; Visit Provider Internal Medicine Cardiovascular Disease
DX: I25.10 Atherosclerotic heart disease of native coronary artery without angina pectoris (principal); I10 Essential (primary) hypertension; R07.89 Other chest pain; R00.2 Palpitations
CPT/HCPCS: 36415; 80048; 80061; 83735; 93017; 93350

== ENCOUNTER 2023-10-09 07:12 | Day surgery (SDC) | payer BC, SELFPAY ==
[2023-10-04 07:34] LABS: Hematocrit 46.2 % (37-47); Hemoglobin 15.3 g/dL (12.0-15.0); Mean Corp Hgb Conc 33.1 g/dL (32-36); Mean Corpuscular Hgb 30.3 pg (27.0-32.0); Mean Corpuscular Volume 91.5 fL (81-99); Mean Platelet Vol. 10.7 fl (6.2-12.0); Platelet Count 239 K/mm3 (150-450); RBC Distribution Width CV 12.4 % (11.6-14.6); RBC Distribution Width SD 41.2 fl (35.1-43.9); Red Blood Count 5.05 M/mm3 (4.2-5.4); White Blood Count 6.1 K/mm3 (4.4-11.0)
[2023-10-04 07:42] LABS: Anion Gap 5 (5-15); BUN 22 mg/dL (7-18); BUN/Creat Ratio 24.6 RATIO (10-20); Calcium,Total 8.8 mg/dL (8.5-10.1); Chloride 105 mmol/L (98-107); Creatinine, Serum 0.89 mg/dL (0.55-1.02); EST Glomerular Filtration Rate 68 mL/min (>60); Est Glom Filt Rate - Afr Amer 83 mL/min (>60); Glucose 70 mg/dL (74-106); Sodium Level 141 mmol/L (136-145)
--- NOTE | 2023-10-04 09:27 | HP.PCM_ITS ---
History and Physical Date of Admission: 10/09/23 This lady has past medical history significant for coronary artery disease, diagnosed on coronary angiography in 2019. At that time, she was noted to have 40 to 50% LAD lesion. FFR was negative. Despite her work-up, she continued to have shortness of breath. We started on beta-pooja therapy and Lasix therapy. She did not wish to increase her amlodipine therapy due to how she feels with medications. Despite adding such medications, she continues to be short of breath. Thus, we will proceed with heart catheterization. Per patient, she has been having anterior chest tightness on a daily basis. This happens multiple times during the day. According to the patient, she feels short of breath with that. Denies any wheezing. According to her, the tightness is relieved by using her inhaler. She also complains of reproduction of the symptoms on exertion. However if prior to physical exertion, she uses her inhaler, then the symptoms do not occur. Patient is particularly disturbed by these episodes at night. Per patient, she was having the same symptoms that led to her coronary angiography in 2020. However these are more frequent now. No orthopnea. No paroxysmal nocturnal dyspnea. No ankle edema. Patient does complain of palpitations multiple times a day. No syncope or presyncope. Intake Vital Signs: See EMR Intake Visit Reasons: [facility] Allergies No Known Allergies Allergy (Unverified 08/29/23 08:57) Medications See EMR [facility] Medical History Blepharitis of right upper eyelid CAD (coronary artery disease) Chest pain Chronic back pain COVID-19 Daytime somnolence Encounter for screening for malignant neoplasm of colon Exposure to COVID-19 virus GERD (gastroesophageal reflux disease) Melanoma Menopausal and postmenopausal disorder Mild sleep apnea PLMD (periodic limb movement disorder) Seasonal allergies Snoring Uterine fibroid Surgical History H/O right breast biopsy History of left heart catheterization (11/04/20) Hx of colonoscopy S/P bunionectomy Status post dilatation of esophageal stricture Family History Mother COPD (chronic obstructive pulmonary disease) Emphysema lungFather Lung cancerBrother Pancreatic cancer Social History household members: spouse housing: [facility] current occupational status: employed current occupation: [employer] pets and animals: No Smoking Status: Former smoker quit date: 11/19/96 pack-years: 10 second hand exposure: No alcohol intake: current alcohol intake frequency: a few times a month Alcohol type: beer and wine substance use type: does not use caffeine: Yes Type: coffee Number of servings: 1 what type of physical activity do you participate in: walking and yoga frequency: 3-4 times per week ROS Const Const: Positive for fatigue, headache(s) (increased) and difficulty sleeping; Negative for weakness, frequent falls or excessive sweating Eyes Eyes: Negative for loss of peripheral vision, transient loss of vision, blurry vision, double vision or tunnel vision ENT ENT: Positive for headache(s) (increased); Negative for dizziness, Nosebleed/epistaxis or balance problems Cardio Chest Pain: Yes Frequency: more than once a day (and at night is the worst) Character: tightness Onset: at rest Location: mid sternal Duration: minutes Palpitations: Yes feels like its: fast and pounding Edema: None Muscle aches with walking: None Resp Respiratory: Positive for SOB with activity, SOB orthopnea\SOB lying down, Cough, chest congestion and wheezing (when laying down); Negative for SOB at rest or paroxysmal nocturnal dyspnea Additional Details: feels like filling up with fluid when laying down GI GI: Negative nausea, vomiting, heartburn or black,tarry stools : Negative for hematuria Musc Musc: Negative for muscle aches/ myalgia, muscle weakness, joint pain or balance problems Skin Skin: Negative non-healing lesions, rash or unusual bruising Neuro Neuro: Positive for lightheadedness and headache(s) (increased); Negative for dizziness, near syncope, syncope, frequent falls, weakness, blurry vision, double vision or lack of coordination Max Hematologic/Lymphatic: Negative for easy bleeding or easy bruising Endo Endo: Positive for fatigue; Negative for excessive sweating or increased thirst/drinking Psych Psych: Negative for anxiety or depression Allergy Allergy/Immunology: Negative for hives and Negative for rash Cardiology Exam Const Appearance: comfortable and no acute distress Nutritional Appearance: well nourished Neck Neck: no JVD Carotids: Negative bruit Chest Auscultation: Bilateral: Clear to Auscultation Cardio Rate: regular rate Rhythm: regular rhythm Heart sounds: S1 normal and S2 normal Neuro General: patient alert, patient awake and patient oriented x3 Extremities Lower Extremity Edema: None: Bilateral Supplemental Info Supplemental Information Echocardiogram from 09/11/2023: Interpretation Summary The left ventricular ejection fraction is 65 %. Mild (1+) mitral valve insufficiency. Mild tricuspid valve insufficiency. Right ventricular systolic pressure estimated to be 37 mmHg. Small left pleural effusion vs. loculated apical pericardial effusion. Recommend CT scan for further evaluation. Stress echocardiogram from 09/19/2023: Interpretation Summary Exercised on the treadmill according to Zach protocol for 9 minutes. No chest pain reported. ST depressions in inferior and lateral leads in recovery. Nondiagnostic in view of baseline abnormality. No echo evidence of exercise-induced ischemia. CARDIAC CATHETERIZATION 11/05/20: CONCLUSIONS CAD as described. Preserved EF. No significant or MR RECOMMENDATIONS Medical therapy for CAD CORONARY ANGIOGRAPHY DOMINANCE: Right Dominant LEFT HEART ASSESSMENT Left Ventricular Ejection Fraction: by LV Gram 60 % Normal LV wall motion LEFT MAIN: No significant disease noted LEFT ANTERIOR DESCENDING ARTERY: PROX LAD: 50 % Stenosis, FFR Ratio: 0.96 DIAGONAL 1: Ostial - 60 % Stenosis, Ostial - FFR Ratio: 0.95 CIRCUMFLEX ARTERY: Mild luminal irregularities RIGHT CORONARY ARTERY: Mild luminal irregularities VALVE FINDINGS: No Aortic Valve Stenosis No Mitral Insufficiency INTERVENTION INFORMATION LESION SITE: 1st Diagonal (Ostial) Lesion Devices: IGT Devices ( [place]) Coronary FFR Wire Cardinal 6 Fr XB3.0 100cm Guide Catheter LESION SITE: LAD (Proximal) Lesion Devices: IGT Devices ( [place]) Coronary FFR Wire Cardinal 6 Fr XB3.0 100cm Guide Catheter PULMONARY FUNCTION TEST 12/14/21: IMPRESSION: Grossly normal pulmonary function studies. Chest CT scan from 09/17/2023: IMPRESSION: 1. No evidence of pericardial effusion or pleural effusion. 2. Multiple small pulmonary nodules, the largest in the right upper lobe for which follow-up CT scan of the chest in 6 months is recommended. (Lung-RADS category 3.) 3. No focal acute pulmonary infiltrate or adenopathy Assessment and Plan Assessment and Plan (1) Chest tightness: Status: Chronic Plan: As she continues to be short of breath despite work-up and medication change, we will proceed with heart catheterization. Depending on results, further recommendation will be made. (2) CAD (coronary artery disease): Status: Chronic Plan: History of mild CAD noted on coronary angiography in 2020. Continue aspirin. Check lipid profile. Start on amlodipine 5 mg once daily for possible vasospastic angina. We will proceed with heart catheterization due to continual symptoms. (3) Palpitations: Status: Chronic Plan: Last twelve-lead ECG shows sinus rhythm with PVC. Holter monitor evaluation Aug shows an average heart of 93 bpm and no significant dysrhythmia. PVC burden was 1%. We will continue to monitor. (4) Hypertension: Status: Chronic Plan: We will continue to adjust medication to optimize blood pressure control.
[2023-10-08 07:26] VITALS: BMI 23.7
--- NOTE | 2023-10-16 09:06 | CL.D_ITS ---
Patient Name: LACHELLE WADDELL Study Date: 10/09/2023 Performing: Jacob Tijerina MD Ht: 61.81 inches 157 cm : 1965 Wt: 128.99 lbs 58.51 kg Age: 57 Gender: female BSA: 1.58 PROCEDURE(S) PERFORMED DC02-(69873)LHC/COR IC10-(87752)FFR, CORONARY OR GRAFT, INITIAL VESSEL IC11-(00016)FFR, CORONARY OR GRAFT, EACH ADD'L VESSEL CLINICAL PROFILE AND INDICATIONS Indications: Stable Known CAD Heart Failure: None CAD Presentations: Symptom unlikely to be ischemic. CONCLUSIONS 50% Mid LAD (iFR 0.94) 60% ostial D1 (iFR 0.97) Mild intramyocardial bridging Mid LAD 30% Prox RCA RECOMMENDATIONS Medical therapy Risk factor modification DESCRIPTION OF PROCEDURE The patient arrived to the procedure lab. The risks and benefits of the procedure as well as a full description of our services here and current unavailability of surgical backup were fully explained to the patient and/or their significant other prior to the catheterization. The Timeout was completed, verifying the correct patient and procedure. The patient's procedural site was prepped and draped in the usual fashion. Local anesthetic was given subcutaneously to right radial region with Lidocaine 2%. Using a modified Seldinger technique, arterial access was obtained via the right radial artery, a 6Fr sheath was inserted. Right Coronary Artery selective angiography was then performed in multiple views using a 5 Fr. 4.0 [place] catheter. Left Coronary Artery selective angiography was performed in multiple views using a 5 Fr. 4.0 [place] catheter.The arterial sheath was pulled and a TR Band was applied for hemostasis CORONARY ANGIOGRAPHY DOMINANCE: Right Dominant LEFT MAIN: Angiographically normal LEFT ANTERIOR DESCENDING ARTERY: LAD: Tubular 50% Ostial lesion in LAD Tubular 50% Mid lesion in LAD DIAGONAL 1: Ostial - 60% eccentric lesion CIRCUMFLEX ARTERY: Angiographically normal RIGHT CORONARY ARTERY: RCA: Tubular 30% Proximal lesion in RCA COMPLICATIONS No Complications PROCEDURE MEDICATIONS Fentanyl 50 mcg IV Versed 1 mg IV Oxygen: 2 L/min via nasal cannula IV Bolus: .9 NaCl 250 ml total 10/09/2023 09:25:02 SUMMARY OF HEMODYNAMIC DATA Time AIR REST ECG 07:34:08 ECG 07:35:02 ECG 09:01:08 AO 124/70 (94) SA 09:24:53 AIR REST 12:56:59 Signed By Jacob Tijerina MD On 10/16/2023 09:06:14 Signed By Jacob Tijerina MD On 10/16/2023 09:05:37 Jacob Tijerina MD
== END 2023-10-09 11:50 | disposition home or self-care (01) ==
LOC: CLSP 07:13
PROVIDERS: PCP Family Medicine; Referring Provider Internal Medicine Cardiovascular Disease; Visit Provider Internal Medicine Cardiovascular Disease
DX: I25.10 Atherosclerotic heart disease of native coronary artery without angina pectoris (principal); Z87.891 Personal history of nicotine dependence; I10 Essential (primary) hypertension; Z79.899 Other long term (current) drug therapy
CPT/HCPCS: 36415; 80048; 85027; 93005; 93454; 93571; 93572; 99152; 99153; J7040; Q9967; C1769; C1894

== ENCOUNTER → 2023-11-05 | Outpatient (CLI) | payer BC, SELFPAY ==
[2023-11-05 09:31] LABS: Absolute Lymphocyte Count 1.35 X10^3/uL (0.83-4.51); Basophil# 0.06 X10^3/uL; Basophil% 0.8 % (0-1); Eosinophil# 0.64 X10^3/uL; Eosinophils% 8.6 % (0-5); Hematocrit 43.2 % (37-47); Hemoglobin 14.5 g/dL (12.0-15.0); Lymphocyte # 1.35 X10^3/ul (0.83-4.51); Mean Corp Hgb Conc 33.6 g/dL (32-36); Mean Corpuscular Hgb 30.8 pg (27.0-32.0); Mean Corpuscular Volume 91.7 fL (81-99); Mean Platelet Vol. 10.1 fl (6.2-12.0); Monocyte# 0.38 X10^3/uL; Monocyte% 5.1 % (0-10); NRBC Flagged by Analyzer 0 % (0-5); Neutrophil # 5.03 X10^3/uL (2.7-7.7); Neutrophil % 67.2 % (47-70); Platelet Count 233 K/mm3 (150-450); RBC Distribution Width CV 11.9 % (11.6-14.6); RBC Distribution Width SD 40.1 fl (35.1-43.9); Red Blood Count 4.71 M/mm3 (4.2-5.4); White Blood Count 7.5 K/mm3 (4.4-11.0)
[2023-11-05 10:18] LABS: NATERA MAILED SPECIMEN
[2023-11-09 17:07] LABS: Aspirgillus flavus Negative (Neg:<1:1); Aspirgillus fumigatus Negative (Neg:<1:1); Aspirgillus niger Negative (Neg:<1:1); Cytoplasmic Ab (C-ANCA) <1:20 titer (Neg:<1:20); Immunoglobulin E 632 IU/mL (6-495); Perinuclear Ab (P-ANCA) <1:20 titer (Neg:<1:20)
[2023-11-11 12:07] LABS: Alternaria tenuis 0.13 kU/L (Class 0/I); Ash, White 0.43 kU/L (Class I); Aspergillus fumigatus <0.10 kU/L (Class 0); Bermuda Grass 0.49 kU/L (Class I); Birch 0.35 kU/L (Class I); Black Walnut 0.41 kU/L (Class I); Cat Hair / Dander,Stand 3.79 kU/L (Class III); Cedar, Mountain 0.31 kU/L (Class 0/I); Cladosporium herbarum <0.10 kU/L (Class 0); Cockroach, American <0.10 kU/L (Class 0); Cottonwood 0.37 kU/L (Class I); D farinae Mite <0.10 kU/L (Class 0); D pteronyssinus <0.10 kU/L (Class 0); Dog Epithelia 1.72 kU/L (Class III); Elm, American White 0.34 kU/L (Class I); Immunoglobulin E 533 IU/mL (6-495); Mouse Urine <0.10 kU/L (Class 0); Oak, White 0.36 kU/L (Class I); Pecan 0.43 kU/L (Class I); Penicillium Notatum <0.10 kU/L (Class 0); Pigweed, Rough 0.21 kU/L (Class 0/I); Ragweed, Short/Common 2.71 kU/L (Class III); Russian Thistle 0.18 kU/L (Class 0/I); Sheep Sorrel 0.22 kU/L (Class 0/I); Timothy Grass 6.44 kU/L (Class IV)
== END | disposition home or self-care (01) ==
LOC: PAVLAB 09:14
PROVIDERS: Obstetrics & Gynecology Gynecology; PCP Family Medicine; Referring Provider Internal Medicine Critical Care Medicine; Visit Provider Internal Medicine Critical Care Medicine
DX: Z01.419 Encounter for gynecological examination (general) (routine) without abnormal findings (principal); Z80.9 Family history of malignant neoplasm, unspecified; R06.02 Shortness of breath
CPT/HCPCS: 36415; 82785; 85025; 86003; 86256; 86606

== ENCOUNTER 2023-11-07 09:44 | Day surgery (SDC) | payer BC, SELFPAY ==
--- NOTE | 2023-11-07 | COLBX_PTH ---
PATIENT: LACHELLE WADDELL LOC: EN U#:[id number] AGE/SX: 58/F ROOM: RE11/07/[address]: Dr. Marco Boston DO : 1965 BED: DIS: 11/07/2023 SPEC #: [id number] RECD: 11/07/23 14:04 STATUS: MARILUZ REPaul #: [id number] REINA: 11/07/23 00:[address]: Marco Boston DEPT: SURGICAL PATHOLOGY RECD BY: Darin Basurto ENTERED: 11/07/23 14:05 SP TYPE: COLON BX OTHR DR: Dr. Jessica Huffman MD Tissues: Sigmoid colon biopsy Procedures: Surgery Specimen Level IV HEADER OPERATION: Colonoscopy, biopsy PRE-OP DIAGNOSIS: Screening for colon cancer TISSUE SUBMITTED: Sigmoid polyp biopsy MICROSCOPIC DIAGNOSIS Sigmoid colon polyp, biopsy: Fragment of colonic mucosa with hyperplastic change. Melanosis coli. AM:kofi 11/08/2023 MICROSCOPIC DESCRIPTION Slides are reviewed. GROSS DESCRIPTION Received in fixative is one container labeled with the patient's name and designated sigmoid polyp biopsy. The specimen consists of one irregular fragment of light walls soft tissue that measures 0.2 x 0.2 x 0.1 cm. The specimen is totally submitted in one cassette. / SJ:kofi 11/07/2023 TC:5 CPT: 51616
[2023-11-07] MEDS: Lactated Ringers 1,000 ML 15 ML IV (10:09)
[2023-11-07 10:10] VITALS: BP 113/78; PULSE 103; RESP 17; TEMP 36.2; O2SAT 97; BMI 22.6
--- NOTE | 2023-11-07 10:54 | PCM.HP.STD ---
[facility] - General General Date of Admission: 11/07/23 Date of Service: 11/07/23 HPI Narrative LACHELLE WADDELL, is a 58 F who presents today for screening colonoscopy. She does not have any abdominal pain. She denies any cramping. She denies any chest pain or shortness of breath. Overall she is in fairly good health. [facility] Medical History (Updated 11/07/23 @ 10:[address] Lara Friend, DO) Blepharitis of right upper eyelid CAD (coronary artery disease) Cancer Cardiology follow-up encounter Chest pain Chronic back pain COVID-19 Daytime somnolence Encounter for screening for malignant neoplasm of colon Excessive bleeding Exposure to COVID-19 virus Former smoker GERD (gastroesophageal reflux disease) History of echocardiogram History of edema History of stress test Melanoma Menopausal and postmenopausal disorder Mild sleep apnea PLMD (periodic limb movement disorder) Post-menopausal Seasonal allergies Shortness of breath on exertion Snoring Uterine fibroid Wears glasses Home Medications albuterol sulfate 90 mcg/actuation aerosol inhaler 2 puff inhalation Q4H PRN shortness of breath or wheezing 08/26/23 [History Last Taken Unknown] aspirin 81 mg tablet,delayed release 81 mg PO DAILY 08/26/23 [History Last Taken 11/06/23] cholecalciferol (vitamin D3) 50 mcg (2,000 unit) capsule 50 mcg PO DAILY 08/29/23 [History Last Taken 11/06/23] amlodipine 2.5 mg tablet 2.5 mg PO DAILY #30 tabs 09/21/23 [Rx Last Taken 11/06/23] metoprolol tartrate 25 mg tablet 25 mg PO BID #60 tabs 09/21/23 [Rx Last Taken 11/06/23] budesonide-formoterol HFA 160 mcg-4.5 mcg/actuation aerosol inhaler (Symbicort) 2 puff inhalation BID #10.2 grams 11/05/23 [Rx Last Taken 11/07/23] furosemide 40 mg tablet (Lasix) 40 mg PO DAILY PRN edema #90 tabs 11/06/23 [Rx Last Taken Unknown] Allergy/AdvReac Type Severity Reaction Status Date / Time No Known Allergies Allergy Verified 11/07/23 10:08 Family History Mother COPD (chronic obstructive pulmonary disease) Emphysema lung Father Lung cancer Brother Pancreatic cancer Surgical History H/O right breast biopsy History of cardiac catheterization History of endometrial ablation History of esophagogastroduodenoscopy (EGD) History of left heart catheterization (11/04/20) Hx of colonoscopy S/P bunionectomy Status post dilatation of esophageal stricture Social History household members: spouse housing: [facility] current occupational status: employed current occupation: [employer] pets and animals: No Smoking Status: Former smoker quit date: 11/19/96 pack-years: 10 second hand exposure: No alcohol intake: current alcohol intake frequency: a few times a month Alcohol type: beer and wine substance use type: does not use caffeine: Yes Type: coffee Number of servings: 1 what type of physical activity do you participate in: walking and yoga frequency: 3-4 times per week ROS Review of Systems ROS Unobtainable: other Constitutional Constitutional: Denies fatigue, fever(s), poor appetite, weight gain or weight loss ENT HEENT: Denies mouth lesions Cardiovascular Cardiovascular: Denies abdominal bloating, abdominal edema or abdominal pain Respiratory/Chest Respiratory/Chest: Denies change in mental status, change in phlegm color, chest congestion or chest tightness Gastrointestinal Gastrointestinal: Denies belching, bloating, change in bowel habits, change in stool character, chewing difficulty, coffee ground emesis, constipation, cramping, diarrhea, dyspepsia, dysphagia, early satiety, excessive flatus, fecal incontinence, heartburn, hematemesis, hematochezia, hemorrhoids, loose stools, melena, nausea, odynophagia, rectal bleeding, tenesmus, vomiting or weight changes Genitourinary Genitourinary: Denies abdominal discomfort, burning urination or itching Musculoskeletal Musculoskeletal: Reports as per HPI; Denies muscle weakness or myalgias Integumentary Integumentary: Denies jaundice Neurologic Neurologic: Denies lack of coordination or weakness Psychiatric Psychiatric: Denies confusion, depression, memory loss, mood swings, paranoia or suicidal ideation Endocrine Endocrinology: Denies systems reviewed and no addt'l complaints, except as documented Hematologic/Lymphatic Hematologic/Lymphatic: Denies anemia, easy bleeding, easy bruising or lymphadenopathy Allergic/Immunologic Allergic/Immunologic: Denies systems reviewed and no addt'l complaints, except as documented Vital Signs Vital Signs Vital Signs: 11/07/23 10:10 11/07/23 10:10 Temperature 97.2 F L Temperature Source Temporal Pulse Rate 103 H Respiratory Rate 17 Respiratory Pattern Normal Blood Pressure 113/78 Blood Pressure Mean 89 Blood Pressure Source Monitor Blood Pressure Position Semi-Fowlers Blood Pressure Location Left Arm Pulse Ox 97 Oxygen Delivery Method Room Air Weight Weight: 123 lb 7.342 oz Body Mass Index (BMI) 22.6 Physical Exam Const alert General Appearance: cooperative Orientation / Consciousness: oriented to person HEENT hearing grossly normal bilaterally Head and Scalp: normal to inspection Face and Sinus: face symmetric Nose: external nose normal Mouth: oral and palatal mucosa normal Eyes conjunctivae normal General Eye: normal appearance of both eyes Neck full ROM General: normal visual inspection Lymph Lymphatic: no lymphadenopathy noted Chest inspection of chest normal and palpation of chest normal Chest: symmetrical chest wall rise Resp normal respiratory effort Effort and Inspection: able to speak in complete sentences Cardio regular rate GI non-distended Percussion: normal to percussion Rectal Exam: deferred Neuro Speech: speech normal Gait (Neuro): normal gait Assessment & Plan Assessment/Plan (1) Encounter for screening colonoscopy: PLAN: She was explained alternatives, risk, benefits include not withstanding bleeding, infection, sepsis, perforation, need for emergent urgent . She will have an ASA of 3.
[2023-11-07 12:00] VITALS: BP 106/67; BP 113/78; PULSE 87; RESP 16; TEMP 36.7; O2SAT 98
[2023-11-07 12:05] VITALS: BP 113/78; BP 94/61; PULSE 79; PULSE 84; RESP 16; O2SAT 100
--- NOTE | 2023-11-07 12:06 | OP.COLON_ITS ---
Patient Name: Ann Locke Procedure Date: 11/07/2023 11:21 AM Date of : 1965 Age: 58 Procedure: Colonoscopy Indications: Screening for colorectal malignant neoplasm Providers: Marco Boston DO Medicines: Monitored Anesthesia Care Patient Profile: This is a 58 year old female. Refer to note in patient chart for documentation of history and physical. Last Colonoscopy: none. The patient's first colonoscopy is today. Complications: No immediate complications. Procedure: Pre-Anesthesia Assessment: - Prior to the procedure, a History and Physical was performed, and patient medications and allergies were reviewed. The patient is competent. The risks and benefits of the procedure and the sedation options and risks were discussed with the patient. All questions were answered and informed consent was obtained. Patient identification and proposed procedure were verified by the physician in the pre-procedure area. Mental Status Examination: alert and oriented. Airway Examination: normal oropharyngeal airway and neck mobility. Respiratory Examination: clear to auscultation. CV Examination: normal. Prophylactic Antibiotics: The patient does not require prophylactic antibiotics. Prior Anticoagulants: The patient has taken no anticoagulant or antiplatelet agents. ASA Grade Assessment: II - A patient with mild systemic disease. After reviewing the risks and benefits, the patient was deemed in satisfactory condition to undergo the procedure. The anesthesia plan was to use monitored anesthesia care (MAC). Immediately prior to administration of medications, the patient was re-assessed for adequacy to receive sedatives. The heart rate, respiratory rate, oxygen saturations, blood pressure, adequacy of pulmonary ventilation, and response to care were monitored throughout the procedure. The physical status of the patient was re-assessed after the procedure. After I obtained informed consent, the scope was passed under direct vision. Throughout the procedure, the patient's blood pressure, pulse, and oxygen saturations were monitored continuously. The Colonoscope was introduced through the anus and advanced to the cecum, identified by appendiceal orifice and ileocecal valve. The colonoscopy was performed without difficulty. The patient tolerated the procedure well. The quality of the bowel preparation was good. The terminal ileum, ileocecal valve, appendiceal orifice, and rectum were photographed. Scope In: 11:31:41 AM Scope Withdrawal Time 0 hours 15 minutes 17 seconds Scope Out: 11:54:09 AM Total Procedure Duration Time 0 hours 22 minutes 28 seconds Findings: The perianal and digital rectal examinations were normal. A few small-mouthed diverticula were found in the recto-sigmoid colon. A 3 mm polyp was found in the recto-sigmoid colon. The polyp was sessile. The polyp was removed with a jumbo cold forceps. Resection and retrieval were complete. Verification of patient identification for the specimen was done. Estimated blood loss was minimal. The exam was otherwise without abnormality on direct and retroflexion views. Impression: - Diverticulosis in the recto-sigmoid colon. - One 3 mm polyp at the recto-sigmoid colon, removed with a jumbo cold forceps. Resected and retrieved. - The examination was otherwise normal on direct and retroflexion views. Recommendation: - Discharge patient to home. - Resume previous diet. - Continue present medications. - Await pathology results. - Repeat colonoscopy in 5 years for surveillance. Procedure Code(s): --- Professional --- 87027, Colonoscopy, flexible; with biopsy, single or multiple CPT copyright 2021 [employer]. All rights reserved. The codes documented in this report are preliminary and upon vinyl welder and fabricator review may be revised to meet current compliance requirements. Marco Boston DO 11/07/2023 12:05:54 PM This report has been signed electronically. Number of Addenda: 0 Note Initiated On: 11/07/2023 11:21 AM
--- NOTE | 2023-11-07 12:06 | OP.CCLET_ITS ---
11/07/2023 Jessica Huffman [place] [id number] [address] Re : Colonoscopy procedure for Ann Chucky Dear Dr. Huffman This procedure was performed on Tuesday, November 07, 2023. My impressions and recommendations are as follows: Impressions : - Diverticulosis in the recto-sigmoid colon. - One 3 mm polyp at the recto-sigmoid colon, removed with a jumbo cold forceps. Resected and retrieved. - The examination was otherwise normal on direct and retroflexion views. Recommendations : - Discharge patient to home. - Resume previous diet. - Continue present medications. - Await pathology results. - Repeat colonoscopy in 5 years for surveillance. My findings are described in the full procedure note, which is enclosed. If I can be of further assistance, please feel free to contact me at . Sincerely, Marco Boston, 11/07/2023 12:05:54 PM This report has been signed electronically.
[2023-11-07 12:10] VITALS: BP 113/78; BP 98/68; PULSE 81; RESP 16; O2SAT 98
[2023-11-07 12:17] VITALS: BP 113/78; BP 98/67; PULSE 80; RESP 16; TEMP 37.1; O2SAT 96
== END 2023-11-07 12:34 | disposition home or self-care (01) ==
LOC: EN 09:46 → AC 09:47
PROVIDERS: PCP Family Medicine; Referring Provider Family Medicine; Visit Provider Internal Medicine Gastroenterology
PROC: 0DJD8ZZ Inspection of Lower Intestinal Tract, Via Natural or Artificial Opening Endoscopic (ICD-10-PCS; CPT 45378; principal; 2023-11-07 10:55)
DX: Z12.11 Encounter for screening for malignant neoplasm of colon (principal); K63.5 Polyp of colon; Z87.891 Personal history of nicotine dependence; K57.30 Diverticulosis of large intestine without perforation or abscess without bleeding; I25.10 Atherosclerotic heart disease of native coronary artery without angina pectoris; K63.89 Other specified diseases of intestine; Z79.82 Long term (current) use of aspirin; Z79.899 Other long term (current) drug therapy
CPT/HCPCS: 45380; 88305; J7120; J2405

== ENCOUNTER → 2023-11-20 | Outpatient (CLI) | payer BC, SELFPAY ==
--- NOTE | 2023-11-20 15:48 | BI_ITS ---
MAMMOGRAPHY - BILATERAL SCREENING REASON FOR EXAM: Female, 58 years old. Routine annual screening examination. PERTINENT HISTORY: Non-contributory. TECHNIQUE: Digital bilateral breast mary kay (3D mammographic acquisition) in the CC and MLO projections. 2-D mediolateral oblique (MLO) and craniocaudad (CC) views of both breasts were obtained. CAD: Full Field Digital Mammography with Computer Added Detection was performed. COMPARISON: Comparison is made with prior study dated November 15, 2022 and November 14, 2021. FINDINGS: Breast Composition: The breasts are heterogeneously dense, which may obscure small masses. There are no dominant masses or suspicious calcifications. Stable small benign-appearing bilateral axillary lymph nodes. No other significant abnormalities are identified. There has been no significant change since the prior study. BI/SCRN MAMM (CAD)W/MARY KAY BILAT IMPRESSION: Stable bilateral screening mammogram. Yearly follow-up mammogram recommended. (A) ASSESSMENT CATEGORY: BIRADS Category 2: Benign. A letter regarding these results will be sent to the patient by the facility within 30 days. Approximately 10% of breast cancers are not detected by mammography. A normal mammogram should not delay biopsy of a clinically suspicious abnormality. [id number] Electronically Signed: Ashok Mccurdy MD at 12:57 EST ,
--- OUTSIDE RECORDS SUMMARY | 2023-11-20 18:06 | XMS RPT_ITS | CCD ---
Author Name Unknown Address [address] [place] [address] Organization [facility] Care Team Providers Care Weigh Boss Name Role Phone Delaney ROSADO, Orin Moura Unavailable Rabia Yoder Unavailable Unavailable Rabia Yoder Unavailable Unavailable Eamon Blackwell MD Unavailable Unavailable Primary Care Provider UnavailTASH Salinas Referring Unavailable RIP GREENFIELD MD Attending Unavailable LIBAN PEREZ Primary Care Unavailable Allergies Allergy Classification Reported Allergen(s) Allergy Type Date of Onset Reaction(s) Facility (1 source) [facility]; Translations: [ANIMALS] allergy to substance 9 [facility] Work Phone: (1 source) Mold Extract; Translations: [MOLD] Drug Allergy 9 [facility] Work Phone: Medications Current Medications Medication Drug Class(es) Dates Sig (Normalized) Sig (Original) predniSONE 20 mg oral tablet (1 source) Start: 06-22-2023 End: 06-27-2023 take 2 tablets by mouth once daily predniSONE (DELTASONE) 20 mg tablet Take 2 tablets by mouth once daily for 5 days. 10 tablet 0 06/22/2023 06/27/2023 Active Completed/Discontinued Medications Medication Drug Class(es) Dates Sig (Normalized) Sig (Original) [id number] 200 actuat albuterol 0.09 mg/actuat metered dose inhaler (1 source) beta2-Adrenergic Agonist Start: 04-03-2023 take 2 puff(s) by mouth every four hours as needed albuterol HFA (PROVENTIL HFA, VENTOLIN HFA) 90 mcg/actuation inhaler 2 PUFFS INHALED ORALLY EVERY 4 HOURS NEEDED (ANY BRAND OK) 0 04/03/2023 Active Problems Active Problems Problem Classification Problem Date Documented Date Episodic/Chronic Melanomas of skin (1 source) Melanoma in situ of right lower limb, including hip; Translations: [Melanoma in situ of right lower limb, including hip] Onset: 12-23-2018 12-23-2018 Chronic Menopausal disorders (2 sources) Menopausal and postmenopausal disorders; Translations: [Unspecified menopausal and perimenopausal disorder] Onset: 10-04-2017 10-04-2017 Chronic Osteoarthritis (2 sources) Idiopathic osteoarthritis; Translations: [Primary osteoarthritis, right shoulder] Onset: 10-04-2017 10-04-2017 Chronic Other lower respiratory disease (5 sources) Cough; Translations: [Acute cough] Onset: 03-26-2017 03-26-2017 Episodic Other lower respiratory disease (1 source) Wheezing; Translations: [Wheezing] 06-22-2023 Episodic Other lower respiratory disease (1 source) Wheezing; Translations: [Wheezing] Onset: 06-22-2023 Episodic Other nutritional; endocrine; and metabolic disorders (1 source) Disorder of iron metabolism; Translations: [Disorder of iron metabolism, unspecified] Onset: 08-04-2011 08-04-2011 Chronic Other screening for suspected conditions (not mental disorders or infectious disease) (2 sources) Encounter for screening for malignant neoplasm of cervix; Translations: [Encounter for screening for malignant neoplasm of cervix] Onset: 10-30-2023 Episodic Unclassified (1 source) Acute cough; Translations: [Acute cough] Onset: 06-22-2023 Past or Other Problems Problem Classification Problem Date Documented Da te Episodic/Chronic Other upper respiratory infections (4 sources) Upper respiratory infection; Translations: [Acute upper respiratory infection, unspecified] Onset: 03-26-2017 03-26-2017 Episodic Unclassified (4 sources) Family history of alcoholism; Translations: [Family history of alcohol abuse and dependence] 10-02-2017 Episodic Unclassified (1 source) Problem Varicose veins of lower extremity (1 source) Venous varices; Translations: [Asymptomatic varicose veins of unspecified lower extremity] Onset: 11-17-2011 11-17-2011 Episodic Results Test Name Value Interpretation Reference Range Facil ity Vital Signs Date Time Vital Sign Value Performing Clinician Facility 06-22-2023 16:04-0400 Body temperature 98.01 [degF] Tash Carlene [employer] Work Phone: [facility] 06-22-2023 16:04-0400 Body weight 57.34 kg Tash Carlene [employer] Work Phone: [facility] 06-22-2023 16:04-0400 Diastolic blood pressure 74 mm[Hg] Tash Carlene [employer] Work Phone: [facility] 06-22-2023 16:04-0400 Heart rate 86 /min Tash Carlene [employer] Work Phone: [facility] 06-22-2023 16:04-0400 Respiratory rate 18 /min Tash Carlene [employer] Work Phone: [facility] 06-22-2023 16:04-0400 SaO2% (BldA) [Mass fraction] 98 % Tash Carlene [employer] Work Phone: [facility] 06-22-2023 16:04-0400 Systolic blood pressure 126 mm[Hg] Tash Carlene [employer] Work Phone: [facility] 10-04-2017 15:56-0500 BMI (Body Mass Index) 23.91 kg/m2 Orin Baltazar MD [facility] Work Phone: 10-04-2017 15:56-0500 Body Temperature 96 [degF] Orin Baltazar MD [facility] Work Phone: 10-04-2017 15:56-0500 BP Diastolic 86 mm[Hg] Orin Baltazar MD [facility] Work Phone: 10-04-2017 15:56-0500 BP Systolic 126 mm[Hg] Orin Baltazar MD [facility] Work Phone: 10-04-2017 15:56-0500 Height 160.02 cm Orin Baltazar MD [facility] Work Phone: 10-04-2017 15:56-0500 Pulse (Heart Rate) 82 /min Orin Baltazar MD [facility] Work Phone: 10-04-2017 15:56-0500 Respiratory Rate 16 /min Orin Baltazar MD [facility] Work Phone: 10-04-2017 15:56-0500 Weight 61.24 kg Orin Baltazar MD [facility] Work Phone: 03-26-2017 15:50-0400 BMI (Body Mass Index) 24.18 kg/m2 [facility] Work Phone: 03-26-2017 15:50-0400 Body Temperature 98.5 [degF] [facility] Work Phone: 03-26-2017 15:50-0400 BP Diastolic 62 mm[Hg] [facility] Work Phone: 03-26-2017 15:50-0400 BP Systolic 118 mm[Hg] [facility] Work Phone: 03-26-2017 15:50-0400 Height 157.48 cm [facility] Work Phone: 03-26-2017 15:50-0400 Pulse (Heart Rate) 92 /min [facility] Work Phone: 03-26-2017 15:50-0400 Respiratory Rate 12 /min [facility] Work Phone: 03-26-2017 15:50-0400 Weight 59.97 kg [facility] Work Phone: NEGATED: Highlighted [id number] 07:50-0500 BMI (Body Mass Index) 23.48 kg/m2 Maggie Meyers RN [facility] Work Phone: NEGATED: Highlighted [id number] 07:50-0500 BP Diastolic 82 mm[Hg] Maggie Meyers RN [facility] Work Phone: NEGATED: Highlighted [id number] 07:50-0500 BP Systolic 137 mm[Hg] Maggie Meyers RN [facility] Work Phone: NEGATED: Highlighted [id number] 07:50-0500 Height 158.75 cm Maggie Meyers RN [facility] Work Phone: NEGATED: Highlighted [id number] 07:50-0500 Height 159 cm Maggie Meyers RN [facility] Work Phone: NEGATED: Highlighted [id number] 07:50-0500 Pulse (Heart Rate) 92 /min Maggie Meyers RN [facility] Work Phone: NEGATED: Highlighted [id number] 07:50-0500 Weight 58.97 kg Maggie Meyers RN [facility] Work Phone: NEGATED: Highlighted [id number] 07:50-0500 Weight 59 kg Maggie Meyers RN [facility] Work Phone: Encounters Encounter Date Encounter Type Care Provider Facility Start: 10-30-2023 End: 11-04-2023 ambulatory RIP GREENFIELD MD Facility:B Start: 10-30-2023 End: 11-04-2023 Encounter for gynecological examination (general) (routine) without abnormal findings RIP GREENFIELD MD Facility:[facility] Start: 06-22-2023 End: 06-22-2023 ambulatory TASH CONCEPCION Facility:[facility] Start: 06-22-2023 End: 06-22-2023 ambulatory TASH CONCEPCION Facility:[facility] Start: 06-22-2023 End: 06-22-2023 Patient encounter procedure Tash Concepcion [employer] Work Phone: [facility] Procedures Date Procedure Procedure Detail Performing Clinician Start: 12-23-2018 End: 12-23-2018 Blood pressure within normal parameters - no follow-up required Eamon Blackwell MD Work Phone: Start: 12-23-2018 End: 12-23-2018 BMI documented within normal parameters - no follow-up plan is required Eamon Blackwell MD Work Phone: Start: 12-23-2018 End: 12-23-2018 Documentation of current medications Eamon Blackwell MD Work Phone: Start: 12-23-2018 End: 12-23-2018 Pain assessment documented as negative - follow-up not required Eamon Blackwell MD Work Phone: Start: 12-23-2018 End: 12-23-2018 Tobacco non-user Eamon Blackwell MD Work Phone: Start: 01-01-2017 Mammography Tash Concepcion [employer] Work Phone: Start: 03-02-2014 Colonoscopy Tash Concepcion [employer] Work Phone: Start: 06-06-2011 Laboratory test result abnormal Abnormal laboratory test Tash Concepcion [employer] Work Phone: Plan of Treatment Date Care Activity Detail Author Start: 03-02-2024 Colonoscopy COLONOSCOPY [facility] Start: 03-02-2024 COLORECTAL CANCER SCREENING COLORECTAL CANCER SCREENING [facility] Start: 07-20-2023 Influenza vaccination INFLUENZA (#1) [facility] Start: 11-19-2022 DEPRESSION ASSESSMENT DEPRESSION ASSESSMENT [facility] Start: 04-04-2020 DIABETES SCREEN DIABETES SCREEN [facility] Start: 12-23-2018 End: 12-23-2018 Appointment Appointment [facility] Work Phone: Start: 04-24-2018 LIPID SCREEN LIPID SCREEN [facility] Start: 01-01-2018 Mammography MAMMOGRAM [facility] Start: 11-21-2017 HPV TESTING HPV TESTING [facility] Start: 11-21-2017 PAP TESTING PAP TESTING [facility] Start: 10-04-2017 End: 10-04-2017 Appointment Appointment [facility] Work Phone: Start: 10-04-2017 End: 10-04-2017 Follow-up visit Follow Up as needed [facility] Work Phone: Start: 2013 SHINGRIX VACCINE (1 of 2) SHINGRIX VACCINE (1 of 2) [facility] Start: 2008 COLOGUARD (FIT-DNA) COLOGUARD (FIT-DNA) [facility] Start: [address] COLONOGRAPHY [facility] Start: 2008 FECAL OCCULT BLOOD FECAL OCCULT BLOOD [facility] Start: 2008 SIGMOIDOSCOPY SIGMOIDOSCOPY [facility] Start: 07-13-2006 Urine microalbumin profile DTAP,TDAP,TD (1 - Tdap) [facility] Start: 1981 HIV SCREENING HIV SCREENING [facility] Start: 04-25-1964 COVID-19 VACCINE (#1) COVID-19 VACCINE (#1) [facility] Patient Education ACUTE%20COUGH, ACUTE%20COUGH [facility] Work Phone: Immunizations Immunization Date Immunization Notes Care Provider Augustin walter 08-19-2014 influenza, seasonal, injectable Tash Concepcion APRN.[employer] Work Phone: [facility] Work Phone: 07-12-2006 tetanus and diphther ia toxoids, adsorbed, preservative free, for adult use (2 Lf of tetanus toxoid and 2 Lf of diphtheria toxoid) Tash Concepcion APRN.[employer] Work Phone: [facility] No information available. Maggie Meyers RN [facility] Work Phone: Payers Date Payer Category Payer Unknown [id number] 2021 Unknown LISA HATHAWAY PPO [id number] 2021-Present [phone] [address] [place] [address] PPO [id number] 2021 Unknown [id number] 1965 Unknown [id number] Social History Date Type Detail Facility Start: 12-23-2018 End: 12-23-2018 Assertion Unknown if ever smoked [facility] Work Phone: Start: 06-22-2023 Tobacco smoking stat us NHIS Ex-smoker [facility] History of tobacco use Current smoker [facility] History of tobacco use Cigarette Smoker [facility] Start: 06-22-2023 Cigarettes smoked current (pack per day) - Reported 1 [facility] Start: 06-22-2023 Tobacco use and exposure Smokeless tobacco non-user [facility] Start: 06-22-2023 Alcohol intake Current non-dr metal expediter of alcohol (finding) [facility] Start: 06-22-2023 Tobacco use panel [facility] Start: 06-22-2023 Tobacco Comment quit 1996 [facility] Start: 1965 Sex Assigned At Not on file [facility] Progress note 06-22-2023 Note Date & Type Note Facility 06-22-2023 Note HNO ID: [id number] Author: Deidra Matamoros RT(R) Service: Radiology Author Type: Technologist Type: Progress Notes Filed: 06/22/2023 5:04 PM Note Text: Radiology Service Progress Note PATIENT NAME: Ann Locke DATE OF SERVICE: June 22, 2023 TIME: 4:57 PM PATIENT IDENTITY VERIFICATION COMPLETED USING TWO (2) IDENTIFIERS: Name and Date of confirmed by patient verbally. FALL SCREENING: Has the patient had 2 falls in the last year or 1 fall with injury or currently using an Ambulatory Assistive Device (Walker, Cane, Wheelchair, Crutches, etc.)? No PATIENT GENDER DATA: Female. status: : No status: NO. PATIENT RELEVANT IMPLANT DATA REVIEWED: Not Applicable RADIOLOGY DEPARTMENT: General X-ray: Exam(s) Completed: Chest X-Ray PERIPHERAL IV DATA: Not applicable SIGNED BY: AIDE PavonR) June 22, 2023 4:57 PM [facility] Progress note 06-22-2023 Note Date & Type Note Facility 06-22-2023 Note HNO ID: [id number] Author: Tash Concepcion APRN.[employer] Service: ? Author Type: Nurse Practitioner Type: Progress Notes Filed: 06/22/2023 6:25 PM Note Text: Subjective The history is provided by the patient. No humanities and languages professor was used. HPI Ann Locke is a 57 year old female who presents today for CC of cough, and tightness with a deep breath. She has also noted wheezing. She denies any nasal congestion, sore throat, fever, chills or body aches. She had something similar in march and was given an inhaler that helped. She is a former smoker. BP 126/74 Pulse 86 Temp 36.7 ?C (98 ?F) (Temporal) Resp 18 Wt 57.3 kg (126 lb 6.4 oz) LMP 12/08/2009 SpO2 98% BMI 23.12 kg/m? Social History Tobacco Use Smoking status: Former Packs/day: 1.00 Years: 15.00 Total pack years: 15.00 Types: Cigarettes Smokeless tobacco: Never Tobacco comments: quit 1996 Substance Use Topics Alcohol use: No Drug use: No PAST MEDICAL HISTORY Diagnosis Date Other malignant neoplasm of skin, site unspecified 09/29/08 The patient had lesion removed I have confirmed and edited as necessary, the [facility] Review of Systems Constitutional: Negative for chills and fever. HENT: Negative for congestion, ear pain, sinus pain and sore throat. Respiratory: Positive for cough and wheezing. Negative for sputum production and shortness of breath. Cardiovascular: Negative for chest pain. Musculoskeletal: Negative for myalgias. Neurological: Negative for headaches. Objective Physical Exam Vitals and nursing note reviewed. HENT: Head: Normocephalic and atraumatic. Right Ear: Tympanic membrane, ear canal and external ear normal. Left Ear: Tympanic membrane, ear canal and external ear normal. Nose: No mucosal edema, congestion or rhinorrhea. Right Sinus: No maxillary sinus tenderness or frontal sinus tenderness. Left Sinus: No maxillary sinus tenderness or frontal sinus tenderness. Mouth/Throat: Pharynx: Uvula midline. No oropharyngeal exudate or posterior oropharyngeal erythema. Cardiovascular: Rate and Rhythm: Normal rate and regular rhythm. Heart sounds: Normal heart sounds. Pulmonary: Effort: Pulmonary effort is normal. Breath sounds: Examination of the right-middle field reveals wheezing. Examination of the left-middle field reveals wheezing. Wheezing present. Lymphadenopathy: Head: Right side of head: No submental, submandibular or tonsillar adenopathy. Left side of head: No submental, submandibular or tonsillar adenopathy. Cervical: No cervical adenopathy. Skin: General: Skin is warm and dry. Neurological: Mental Status: She is alert. Psychiatric: Mood and Affect: Affect normal. ASSESSMENT/PLAN: 1. Acute cough - ICD9: 786.2, ICD10: R05.1 (primary diagnosis) Viral versus reactive Prednisone, albuterol Follow up with PCP for further testing - XR CHEST 2V FRONTAL/LAT RESULT: Lines, tubes, and devices: None. Lungs and pleura: No consolidation. No lung mass. No pleural effusion. No pneumothorax. Cardiomediastinal silhouette: The cardiomediastinal silhouette appears within normal limits. Calcifications are seen in the wall of the thoracic aortic arch. Bones and soft tissues: Visualized portions of the bony thorax appear intact. IMPRESSION: No acute radiographic abnormality. Interpreted by : CHELSEY GODOY MD 2. Wheezing - ICD9: 786.07, ICD10: R06.2 Prednisone 40 mg (2-20mg tablets) po QD for 5 days Albuterol inhaler as - XR CHEST 2V FRONTAL/LAT Diagnosis and treatment plan were discussed and questions were answered to the patient's satisfaction. Pt acknowledged understanding of concepts and follow up plan. Specific signs and symptoms that would indicate the need for higher level of care were discussed in detail warranting prompt ER evaluation. Tash Concepcion APRN.[facility] History of Present illness Narrative 06-22-2023 Tash Concepcion APRN.[facility] - 06/22/2023 4:43 PM EDT Note Date & Type Note Facility 06-22-2023 History of Presen t illness Narrative Subjective The history is provided by the patient. No humanities and languages professor was used. HPI Ann Locke is a 57 year old female who presents today for CC of cough, and tightness with a deep breath. She has also noted wheezing. She denies any nasal congestion, sore throat, fever, chills or body aches. She had something similar in march and was given an inhaler that helped. She is a former smoker. BP 126/74 Pulse 86 Temp 36.7 C (98 F) (Temporal) Resp 18 Wt 57.3 kg (126 lb 6.4 oz) LMP 12/08/2009 SpO2 98% BMI 23.12 kg/m Social History Tobacco Use Smoking status: Former Packs/day: 1.00 Years: 15.00 Total pack years: 15.00 Types: Cigarettes Smokeless tobacco: Never Tobacco comments: quit 1996 Substance Use Topics Alcohol use: No Drug use: No PAST MEDICAL HISTORY Diagnosis Date Other malignant neoplasm of skin, site unspecified 09/29/08 The patient had lesion removed I have confirmed and edited as necessary, the [facility] Review of Systems Constitutional: Negative for chills and fever. HENT: Negative for congestion, ear pain, sinus pain and sore throat. Respiratory: Positive for cough and wheezing. Negative for sputum production and shortness of breath. Cardiovascular: Negative for chest pain. Musculoskeletal: Negative for myalgias. Neurological: Negative for headaches. Objective Physical Exam Vitals and nursing note reviewed. HENT: Head: Normocephalic and atraumatic. Right Ear: Tympanic membrane, ear canal and external ear normal. Left Ear: Tympanic membrane, ear canal and external ear normal. Nose: No mucosal edema, congestion or rhinorrhea. Right Sinus: No maxillary sinus tenderness or frontal sinus tenderness. Left Sinus: No maxillary sinus tenderness or frontal sinus tenderness. Mouth/Throat: Pharynx: Uvula midline. No oropharyngeal exudate or posterior oropharyngeal erythema. Cardiovascular: Rate and Rhythm: Normal rate and regular rhythm. Heart sounds: Normal heart sounds. Pulmonary: Effort: Pulmonary effort is normal. Breath sounds: Examination of the right-middle field reveals wheezing. Examination of the left-middle field reveals wheezing. Wheezing present. Lymphadenopathy: Head: Right side of head: No submental, submandibular or tonsillar adenopathy. Left side of head: No submental, submandibular or tonsillar adenopathy. Cervical: No cervical adenopathy. Skin: General: Skin is warm and dry. Neurological: Mental Status: She is alert. Psychiatric: Mood and Affect: Affect normal. ASSESSMENT/PLAN: 1. Acute cough - ICD9: 786.2, ICD10: R05.1 (primary diagnosis) Viral versus reactive Prednisone, albuterol Follow up with PCP for further testing - XR CHEST 2V FRONTAL/LAT RESULT: Lines, tubes, and devices: None. Lungs and pleura: No consolidation. No lung mass. No pleural effusion. No pneumothorax. Cardiomediastinal silhouette: The cardiomediastinal silhouette appears within normal limits. Calcifications are seen in the wall of the thoracic aortic arch. Bones and soft tissues: Visualized portions of the bony thorax appear intact. IMPRESSION: No acute radiographic abnormality. Interpreted by : CHELSEY GODOY MD 2. Wheezing - ICD9: 786.07, ICD10: R06.2 Prednisone 40 mg (2-20mg tablets) po QD for 5 days Albuterol inhaler as - XR CHEST 2V FRONTAL/LAT Diagnosis and treatment plan were discussed and questions were answered to the patient's satisfaction. Pt acknowledged understanding of concepts and follow up plan. Specific signs and symptoms that would indicate the need for higher level of care were discussed in detail warranting prompt ER evaluation. Tash Concepcion APRN.[employer] documented in this encounter [facility] Evaluation note Note Date & Type Note Facility documented in this encounter [facility] Chief Complaint Chief Complaint Description Start Date right leg Preliminary chief co mplaint data, not yet signed by the author as of Instructions Instruction Description Start Date Completed Advance Directives There may be information available, but it has not been provided by the sender. No Advanced Directives Records FoundNo Advanced Directives Records Found Assessments There may be information available, but it has not been provided by the sender. Review of System There may be information available, but it has not been provided by the sender. Family History There may be information available, but it has not been provided by the sender.No Family History Records FoundNo Family History Records Found History of Present Illness There may be information available, but it has not been provided by the sender. Summary Purpose Additional Source Comments Reason for Visit (unrecogniz ed section and content) Reason Comments Cough Pt reported chest co ngestion, x1 wk. Source Comments (unrecognize d section and content) In the event this informatio n is protected by the Federal Confidentiality of Alcohol and Drug Abuse Patient Records regulations: The Federal rules restrict any use of the information to criminally investigate or prosecute any alcohol or drug abuse patient.[facility] INFORMATION SOURCE (unrecogn ized section and content) DATE CREATED AUTHOR AUTHOR'S ORGANIZ ATION 11/09/2023 [facility] FOR RECORDS PERTAINING TO PATIENTS WHO ARE OR HAVE BEEN ENROLLED IN A CHEMICAL DEPENDENCY/SUBSTANCEABUSE PROGRAM, SOME INFORMATION MAY BE OMITTED. This clinical summary was aggregated from multiple sources. Caution should be exercised in using it in the provision of clinical care. This summary normalizes information from multiple sources, and as a consequence, information in this document may materially change the coding, format and clinical context of patient data. In addition, data may be omitted in some cases. CLINICAL DECISIONS SHOULD BE BASED ON THE PRIMARY CLINICAL RECORDS. [facility]. provides no warranty or guarantee of the accuracy or completeness of information in this document.
== END | disposition home or self-care (01) ==
LOC: OPBI 15:46
PROVIDERS: PCP Family Medicine; Referring Provider Obstetrics & Gynecology Gynecology; Visit Provider Obstetrics & Gynecology Gynecology
DX: Z12.31 Encounter for screening mammogram for malignant neoplasm of breast (principal); Z01.419 Encounter for gynecological examination (general) (routine) without abnormal findings
CPT/HCPCS: 77063; 77067

== ENCOUNTER → 2024-03-19 | Outpatient (CLI) | payer BC, SELFPAY ==
--- NOTE | 2024-03-19 15:48 | CT_ITS ---
STUDY: CT CHEST WITHOUT CONTRAST- LOW DOSE SCREENING PROTOCOL REASON FOR EXAM: Female, 58 years old. Lung Nodules pack per year history. No current symptoms of lung cancer or pulmonary infection. Shared decision-making with referring PCP documented in patient''s record. RADIATION DOSAGE (If Supplied By Facility): CTDIvol = ( 5.22 ) mGy, DLP = ( 176.30 ) mGycm TECHNIQUE: Low dose screening CT examination performed from the base of the neck to the upper abdomen. Sagittal and coronal reformatted images performed. Sagittal and coronal MIP images provided. The measurements provided are average, rounded measurements per ACR guidelines. Individualized dose optimization techniques were used for this CT. COMPARISON: 09/17/2023. FINDINGS: Stable 7 mm pleural-based right apical nodule, stable 6 mm groundglass pulmonary nodule in the right upper lobe. Calcified granuloma in the left lung base. The lungs are otherwise normal. There is no demonstrated pleural abnormality. Normal heart and pericardium. There are calcifications of the coronary arteries. Normal mediastinum. Normal hilar regions. Normal unenhanced pulmonary arteries. There is atherosclerotic calcification of the aortic arch with tortuosity and elongation of the aortic arch and descending thoracic aorta. Normal osseous structures. There is no demonstrated abnormality of the visualized upper abdomen. CT/Chest without Contrast IMPRESSION: No new acute findings. No change from prior. Few stable subcentimeter lung nodules bilaterally. ASSESSMENT CATEGORY: LUNG-RADS 3: Probably Benign. Recommend follow up with LDCT in 6 months, per established ACR guidelines. Electronically Signed: Jairo Eller MD at 17:46 EDT ,
== END | disposition home or self-care (01) ==
LOC: CT 15:48
PROVIDERS: PCP Family Medicine; Referring Provider Internal Medicine Critical Care Medicine; Visit Provider Internal Medicine Critical Care Medicine
DX: R91.1 Solitary pulmonary nodule (principal)
CPT/HCPCS: 71250

== ENCOUNTER → 2024-07-30 | Outpatient (CLI) | payer BC, SELFPAY ==
[2024-07-30 08:37] LABS: Cholesterol 225 mg/dL (200); High Density Lipoprotein 75 mg/dL; Triglycerides 106 mg/dL; Very Low Density Lipoprotein 21 mg/dL (5-40)
== END | disposition home or self-care (01) ==
LOC: LAB 07:20
PROVIDERS: PCP Family Medicine; Referring Provider Internal Medicine Cardiovascular Disease; Visit Provider Internal Medicine Cardiovascular Disease
DX: I25.10 Atherosclerotic heart disease of native coronary artery without angina pectoris (principal); E78.5 Hyperlipidemia, unspecified
CPT/HCPCS: 36415; 80061

== ENCOUNTER → 2024-10-02 | Outpatient (CLI) | payer BC, SELFPAY ==
--- NOTE | 2024-10-02 15:47 | CT_ITS ---
STUDY: CT CHEST WITHOUT CONTRAST REASON FOR EXAM: Female, 58 years old. Lung nodules RADIATION DOSAGE (If Supplied By Facility): CTDIvol = ( 6.24 ) mGy, DLP = ( 224.61 ) mGycm TECHNIQUE: Transaxial CT imaging of the chest was performed without administration of intravenous contrast material, followed by coronal and sagittal reformatting. Individualized dose optimization techniques were used for this CT. COMPARISON: No relevant priors. FINDINGS: SUPRACLAVICULAR SOFT TISSUES: Supraclavicular soft tissues are normal. Thyroid gland is normal. MEDIASTINUM: No significant mediastinal or hilar lymphadenopathy. Shotty bilateral axillary lymph nodes. Tracheal bronchial tree and esophagus are normal.. LUNGS: No confluent airspace infiltrate. Groundglass nodules noted throughout bilateral upper lobes, right greater than left. Calcified nodule at the left lateral lung base, consistent with old healed granulomatous disease. No pleural effusion or pneumothorax. UPPER ABDOMEN: Visualized portions of the upper abdomen demonstrate hypoattenuated lesions within the liver, too small to characterize.. SKELETAL STRUCTURES: No acute skeletal abnormality. CT/Chest without Contrast IMPRESSION: 1. Groundglass nodules scattered throughout bilateral upper lobes, right greater than left, potentially infectious or inflammatory in etiology. Surveillance CT imaging of the 3 month interval is recommended to document stability/resolution. 2. Hypoattenuated lesions scattered throughout the liver, too small to characterize but likely representing cysts versus hemangiomas. Dedicated MR imaging of the liver could be obtained for further characterization. Electronically Signed: Darin Matos MD at 1:11 EST ,
== END | disposition home or self-care (01) ==
LOC: CT 15:46
PROVIDERS: PCP Family Medicine; Referring Provider Nurse Practitioner Acute Care; Visit Provider Nurse Practitioner Acute Care
DX: R91.8 Other nonspecific abnormal finding of lung field (principal)
CPT/HCPCS: 71250

== ENCOUNTER → 2024-12-11 | Outpatient (CLI) | payer BC, SELFPAY ==
--- NOTE | 2024-12-11 15:47 | BI_ITS ---
MAMMOGRAPHY - BILATERAL SCREENING REASON FOR EXAM: Female, 59 years old. Routine annual screening examination. PERTINENT HISTORY: Non-contributory. TECHNIQUE: Digital bilateral breast mary kay (3D mammographic acquisition) in the CC and MLO projections. 2-D mediolateral oblique (MLO) and craniocaudad (CC) views of both breasts were obtained. CAD: Full Field Digital Mammography with Computer Added Detection was performed. COMPARISON: Comparison is made with prior study dated November 20, 2023 and November 15, 2022. FINDINGS: Breast Composition: The breasts are heterogeneously dense, which may obscure small masses. There are no dominant masses or suspicious calcifications. Stable small benign-appearing bilateral axillary lymph nodes. No other significant abnormalities are identified. There has been no significant change since the prior study. BI/SCRN MAMM (CAD)W/MARY KAY BILAT IMPRESSION: Stable bilateral screening mammogram. Yearly follow-up mammogram recommended. (A) ASSESSMENT CATEGORY: BIRADS Category 2: Benign. A letter regarding these results will be sent to the patient by the facility within 30 days. Approximately 10% of breast cancers are not detected by mammography. A normal mammogram should not delay biopsy of a clinically suspicious abnormality. [id number] Electronically Signed: Ashok Mccurdy MD at 8:50 EST ,
== END | disposition home or self-care (01) ==
LOC: OPBI 15:46
PROVIDERS: PCP Family Medicine; Referring Provider Obstetrics & Gynecology Gynecology; Visit Provider Obstetrics & Gynecology Gynecology
DX: Z12.31 Encounter for screening mammogram for malignant neoplasm of breast (principal)
CPT/HCPCS: 77063; 77067

== ENCOUNTER → 2025-07-10 | Outpatient (CLI) | payer BC, SELFPAY ==
--- NOTE | 2025-07-10 16:04 | RAD_ITS ---
PROCEDURE: CHEST PA AND LATERAL 07/10/2025 REASON FOR EXAM: COUGH TECHNIQUE: CHEST PA AND LATERAL COMPARISON: CT chest 10/02/2024 FINDINGS: Hardware: None. Heart: The heart size is normal. Mediastinum: The mediastinal contour is unremarkable. Lungs: The lungs are clear. Bones: The bones are unremarkable. RAD/Chest PA and Lateral IMPRESSION: NO ACUTE FINDINGS. Reading [facility]
== END | disposition home or self-care (01) ==
LOC: MTRAD 16:04
PROVIDERS: PCP Family Medicine; Referring Provider Physician Assistant; Visit Provider Physician Assistant
DX: R05.9 Cough, unspecified (principal)
CPT/HCPCS: 71046

== ENCOUNTER → 2025-08-22 | Outpatient (CLI) | payer BC, SELFPAY ==
--- OUTSIDE RECORDS SUMMARY | 2025-08-22 08:21 | XMS RPT_ITS | CCD ---
Author Organization [facility] Care Team Providers Care Diagram Clerk Name Role Phone Delaney ROSADO, Orin Moura Unavailable Rabia Yoder Unavailable Unavailable Rabia Yoder Unavailable Unavailable Eamon Blackwell MD Unavailable Dr. Jessica Perez Primary Care Provider [phone] Dr. Jessica Perez Referring Provider Dr. Jessica Perez Other Provider Dr. Eamon Bryant Attending Provider [phone] Ronald TAMEZ, PA Lio Garg Attending Provider Dr. Jessica Perez Primary Care Provider [phone] Dr. Jessica Perez Referring Provider Unavailable Primary Care Provider UnavailTASH Salinas Referring Unavailable Dr. Jessica Perez Primary Care Provider Alison Hernandez Attending Provider Unavailable Dr. Jessica Perez Referring Provider Dr. Jacob Tijerina Attending Provider Seng ENTRY LEVEL SOFTWARE DEVELOPERRANDALL Attending Provider Dr. Jacob Tijerina Referring Provider RANDALL Duarte NP Attending Provider Dr. Jessica Perez Primary Care Provider Alison Hernandez Attending Provider Unavailable Dr. Jessica Perez Referring Provider Dr. Jacob Tijerina Attending Provider Breezy, Dr. James Referring Provider Seng ENTRY LEVEL SOFTWARE DEVELOPER, ENTRY LEVEL SOFTWARE DEVELOPER-Alphnose Rosa Attending Provider Gerald ENTRY LEVEL SOFTWARE DEVELOPER, ENTRY LEVEL SOFTWARE DEVELOPER-Alphonse Nelson Attending Provider Breezy, Dr. James Other Provider Dr. Eamon Bryant Attending Provider Friend, Dr. Lara Attending Provider Friend, Dr. Lara Other Provider ISABEL GREENFIELD MD Attending Unavailable [facility] [place] Primary Care Unavailable Dr. Jessica Perez Primary Care Provider [phone] Dr. Jessica Perez Primary Care Provider Dr. Jessica Perez Referring Provider Breezy, Dr. James Attending Provider Milan ENTRY LEVEL SOFTWARE DEVELOPER, RANDALL Lopez Attending Provider Unavailable Primary Care Provider UnavailDr. Jessica Campbell MD Primary Care Provider Dr. Jessica Perez MD Referring Provider Lio Ruiz Attending Provider Lio Ruiz Referring Provider Miel, Jessica Referring Unavailable Nyedel, Jessica Primary Care Unavailable Jacob Tijerina Attending Unavailable Miedel, Jessica Referring Unavailable Miedel, Jessica Primary Care Unavailable Milan ENTRY LEVEL SOFTWARE DEVELOPERJessica Attending Unavailable [facility], Jessica Referring Unavailable Lio Ruiz Attending Unavailable Miedel, Jessica Primary Care Unavailable Isabel Greenfield Attending Unavailable Isabel Greenfield Referring Unavailable Miedel, Jessica Primary Care Unavailable Milan ENTRY LEVEL SOFTWARE DEVELOPERJessica Referring Unavailable Milan ENTRY LEVEL SOFTWARE DEVELOPER, Jessica Attending Unavailable Miedel, Jessica Primary Care Unavailable Miedel, Jessica Primary Care Unavailable Jacob Tijerina Attending Unavailable Jacob Tijerina Referring Unavailable Lio Ruiz Attending Unavailable Lio Ruiz Referring Unavailable Jessica Perez Primary Care Unavailable Jessica Perez Referring Unavailable Lio Ruiz Attending Unavailable Jessica Perez Primary Care Unavailable JESSICA PEREZ Primary Care Physician Allergies Allergy Classification Reported Allergen(s) Allergy Type Date of Onset Reaction(s) Facility (1 source) [facility]; Translations: [ANIMALS] allergy to substance [address] [facility] Work Phone: (1 source) Mold Extract; Translations: [MOLD] Drug Allergy [address] [facility] Work Phone: Medications Current Medications Medication Drug Class(es) Dates Sig (Normalized) Sig (Original) [id number] 200 actuat albuterol 0.09 mg/actuat metered dose inhaler (12 sources) beta2-Adrenergic Agonist Start: 08-26-2023 Albuterol Sulfate 90 mcg/actuation HFA aerosol inhaler Active 2 NMA INHALATION Q4H as needed for shortness of breath or wheezing August 26, 2023 12:00am Start: 08-26-2023 take 1 puff(s) by in halation every four hours Albuterol Sulfate Active 2 PUFF INHALATION Q4H August 26, 2023 12:00am Start: 04-03-2023 take 2 puff(s) by mo uth every four hours as needed albuterol HFA (PROVENTIL HFA, VENTOLIN HFA) 90 mcg/actuation inhaler 2 PUFFS INHALED ORALLY EVERY 4 HOURS NEEDED (ANY BRAND OK) 04/03/2023 Active Comment on above: 2 PUFFS INHALED ORAL LY EVERY 4 HOURS NEEDED (ANY BRAND OK) Albuterol (Eqv-ProAir HFA) 90 mcg/inh inhalation aerosol (1 source) Start: take 2 puff(s) by mouth every four hours as needed Albuterol (Eqv-ProAir HFA) 90 mcg/inh inhalation aerosol 2 PUFFS INHALED ORALLY EVERY 4 HOURS NEEDED (ANY BRAND OK) Start Date: 10/30/23 Status: Ordered Medication Dispense Status: Completed Total Allowed Fills: 1 Fills Dispensed: 0 amoxicillin 500 mg oral capsule (2 sources) Penicillin-class Antibacterial Start: 3 take 1 capsule by mouth three times daily amoxicillin (AMOXIL) 500 mg capsule take 1 capsule by mouth three times a day until gone 06/13/2023 Active Comment on above: take 1 capsule by mo uth three times a day until gone aspirin 81 mg oral tablet (11 sources) Platelet Aggregation Inhibitor, Nonsteroidal Anti-inflammatory Drug Start: 4 Aspirin Low Dose 81 mg oral tablet, chewable Dose : 81 mg = 1 tab(s), Chewed, qDay, 2 times/week, 0 Refill(s) Start Date: 11/05/24 Status: Ordered Medication Dispense Status: Completed Total Allowed Fills: 1 Fills Dispensed: 0 Start: 08-26-2023 take 1 tablet by renetta th once daily Aspirin 81 mg tablet,delayed release (DR/EC) Active 81 mg PO DAILY August 26, 2023 12:00am azithromycin 250 mg oral tablet (6 sources) Macrolide Antimicrobial Start: 07-10-2025 Azithromycin 250 mg tablet Active 250 mg PO .COMPLEX 12 July 10, 2025 12:00am 2 tablets (500 mg) on day 1, then 1 tablet daily on days 2 through 11 Start: 03-28-2017 End: 04-02-2017 ZITHROMAX Z-BILLY 250 MG TABS Take 2 pills on day 1 then 1 pill days 2 through 5 AZITHROMYCIN [id number] Gary TAMEZ Budesonide-Formoterol (8 sources) Corticosteroid, beta2-Adrenergic Agonist Start: 05-13-2024 Budesonide-Formoterol (Symbicort) 160-4.5 mcg/actuation HFA aerosol inhaler Active 2 NMA INHALATION TWICE A DAY 10.2 May 13, 2024 2:45pm Start: 11-05-2023 End: 05-13-2024 Budesonide-Formoterol (Symbi jesse) 160-4.5 mcg/actuation HFA aerosol inhaler Discontinued 2 NMA INHALATION TWICE A DAY 10.2 November 05, 2023 1:00am May 13, 2024 2:45pm Start: 11-05-2023 take 1 puff(s) by in halation twice daily Budesonide-Formoterol (Symbicort) 160-4.5 mcg/actuation HFA aerosol inhaler Active 2 PUFF INHALATION TWICE A DAY 10.November 05, 2023 1:00am Start: 11-05-2023 take 1 puff(s) by in halation twice daily Budesonide-Formoterol (Symbicort) 160-4.5 mcg/actuation HFA aerosol inhaler Active 2 PUFF INHALATION TWICE A DAY 10.November 05, 2023 12:00am cholecalciferol 0.05 mg oral capsule (14 sources) Vitamin D Start: 08-29-2023 take 1 capsule by mouth once daily Cholecalciferol (Vitamin D3) 50 mcg (2,000 unit) capsule Active 50 ug PO DAILY August 29, 2023 12:00am Start: 10-02-2017 take 1 tablet by renetta th once daily VITAMIN D3 SUPER STRENGTH 2000 UNIT CAPS One tablet by mouth daily CHOLECALCIFEROL [id number] Rabia Yoder clopidogrel 75 mg oral tablet (1 source) P2Y12 Platelet Inhibitor Start: 10-09-2023 take 75 mg by mouth once daily Clopidogrel Active 75 MG PO DAILY October 09, 2023 12:00am ibuprofen 200 mg oral capsule (2 sources) Nonsteroidal Anti-inflammatory Drug Ibuprofen 200 mg ORAL Cap Take by mouth as needed. Active Comment on above: Take by mouth as nee ded. [place] (Nk) (5 sources) Start: 10-05-2021 [place] (Nk) Active October 05, 2021 12:00am Start: 10-05-2021 [place] (Nk) A ctive October 05, 2021 1:00am PARoxetine hydrochloride 10 mg oral tablet (3 sources) Serotonin Reuptake Inhibitor Start: 11-05-2024 take 1 tablet by mouth once daily Paroxetine Hcl 10 mg tablet Active 10 mg PO daily January 20, 2025 1:00am predniSONE 10 mg oral tablet (2 sources) Start: 08-18-2025 End: 08-24-2025 take 1 tablet by mouth once daily prednisone 10mg tab (TAPER) Taper 40-20-10 mg x 2 days each dose, Oral, Daily, # 14 tab(s), 0 Refill(s) Start Date: 08/18/25 Stop Date: 08/24/25 Status: Ordered Medication Dispense Status: Completed Quantity: 14.0 Unit: tab(s) Total Allowed Fills: 1 Fills Dispensed: 0 Start: 06-22-2023 End: 06-27-2023 take 2 tablets by mouth once daily predniSONE (DELTASONE) 20 mg tablet Take 2 tablets by mouth once daily for 5 days. 10 tablet 0 06/22/2023 06/27/2023 Active Comment on above: Take 2 tablets by mo [facility] once daily for 5 days. vitamin b12 1 mg oral capsule (2 sources) Vitamin B12 Start: 05-13-2024 take 1 capsule by mouth once daily Cyanocobalamin (Vitamin B-12) 1,000 mcg capsule Active 1000 ug PO DAILY May 13, 2024 12:00am Completed/Discontinued Medications Medication Drug Class(es) Dates Sig (Normalized) Sig (Original) amLODIPine 2.5 mg oral tablet (20 sources) Dihydropyridine Calcium Channel Bud Start: 09-21-2023 End: 12-19-2023 take 1 tablet by mouth once daily Amlodipine 2.5 mg tablet Discontinued 2.5 mg PO DAILY 17 11September 21, 2023 4:39pm December 19, 2023 3:24pm Start: 08-29-2023 End: 09-21-2023 take 1 tablet by mouth once daily Amlodipine 5 mg tablet Discontinued 5 mg PO DAILY 18 03August 29, 2023 12:00am August 29, 2023 9:47am CALCIUM CARB-CHOLECALCIFEROL (1 source) Start: 12-17-2018 CALCIUM 500 + D 500-200 MG-UNIT TABS 1 tablet as directed as needed CALCIUM CARB-CHOLECALCIFEROL [id number] Sissy Junior RN calcium carbonate 1250 mg chewable tablet (2 sources) Start: 11-08-2010 End: 06-22-2023 calcium carbonate (CALCIUM 500) 500 mg (1,250 mg) ORAL chewable tablet Indications: Routine medical exam Chew 1 tab 2-3 times daily 0 11/08/2010 06/22/2023 Discontinued (Discontinued by Patient) Comment on above: Chew 1 tab 2-3 times daily calcium carbonate 1500 mg / cholecalciferol 200 unt oral capsule (10 sources) Vitamin D Start: 08-26-2023 End: 08-29-2023 Calcium Carbonate-Vitamin D3 600 mg-5 mcg (200 unit) capsule Discontinued 1 NMA PO DAILY August 26, 2023 12:00am August 29, 2023 9:06am Start: 08-26-2023 End: 08-29-2023 take 1 capsule by mouth once daily Calcium Carbonate-Vitamin D3 Discontinued 1 CAP PO DAILY August 26, 2023 12:00am August 29, 2023 9:06am Clobetasol (1 source) Corticosteroid Start: 11-05-2024 Clobetasol (Eqv-Temovate) 0.05% topical cream APPLY THIN LAYER TO AFFECTED AREAS FOREARMS 2X/DAY UP 2WKS THEN HOLD STEFFANY X1WK BEFORE REPEAT NEED Start Date: 11/05/24 Status: Ordered Medication Dispense Status: Completed Total Allowed Fills: 1 Fills Dispensed: 0 estrogens, conjugated (mcfp) 0.3 mg / medroxyPROGESTERone acetate 1.5 mg oral tablet (20 sources) Progestin, Estrogen Start: 03-13-2018 End: 03-13-2018 take 0.3-1.5 mg by mouth once daily Conj Estrog-Medroxyprog est Christian (Prempro) 0.3-1.5 mg tablet Discontinued 1 {tbl} PO daily March 13, 2018 12:00am March 13, 2018 3:54pm Start: 10-02-2017 PREMPRO 0.3-1. 5 MG TABS .11 CONJ ESTROG-MEDROXYPROGEST CHRISTIAN [id number] Rabia Yoder Start: 03-26-2017 PREMPRO TABS a s directed CONJ ESTROG-MEDROXYPROGEST CHRISTIAN TABS [id number] Adriana Serna LPN Start: 03-26-2017 End: 10-02-2017 PREMPRO TABS as directed 201 05/23/08 CONJ ESTROG-MEDROXYPROGEST CHRISTIAN TABS [id number] Rabia Yoder Start: 03-14-2017 End: 06-22-2023 take 0.45-1.5 mg by mouth once conjugated estrogens-medroxyPROGESTERone (PREMPRO) 0.45-1.5 mg per tablet Take 1 tablet by mouth once daily. 0 03/14/2017 06/22/2023 Discontinued (Discontinued by another Health Care Provider) Comment on above: Take 1 tablet by renetta once daily. fluticasone (5 sources) Corticosteroid Start: 10-31-20 End: 11-05-20 take 1 puff(s) by inhalation twice daily Fluticasone Propionate Discontinued 2 PUFF INHALATION TWICE A DAY October 31, 2023 1:00am November 05, 2023 10:01am Start: 10-31-2023 End: 11-05-2023 take 1 puff(s) by inhalation twice daily Fluticasone Propionate Discontinued 2 PUFF INHALATION TWICE A DAY October 31, 2023 12:00am November 05, 2023 9:01am Start: 10-30-2023 take 2 puff(s) by mo uth twice daily fluticasone 110 mcg/inh inhalation aerosol TAKE 2 PUFFS BY MOUTH TWICE A DAY Start Date: 10/30/23 Status: Ordered Medication Dispense Status: Completed Total Allowed Fills: 1 Fills Dispensed: 0 Fluticasone Propionate 110 mcg/actuation HFA aerosol inhaler (2 sources) Start: 10-31-2023 End: 11-05-2023 Fluticasone Propionate 110 mcg/actuation HFA aerosol inhaler Discontinued 2 NMA INHALATION TWICE A DAY October 31, 2023 1:00am November 05, 2023 10:01am furosemide 40 mg oral tablet (20 sources) Loop Diuretic Start: 09-17-2023 End: 02-05-2024 take 1 tablet by mouth once daily as needed for edema Furosemide (Lasix) 40 mg tablet Discontinued 40 mg PO DAILY as needed for edema 90 3 November 06, 2023 3:11pm February 05, 2024 2:45pm ibuprofen 200 mg / pseudoephedrine hydrochloride 30 mg oral tablet (1 source) alpha-Adrenergic Agonist, Nonsteroidal Anti-inflammatory Drug Start: 12-17-2018 IBUPROFEN COLD & SINUS 30-200 MG TABS 1 tablet once daily as directed PSEUDOEPHEDRINE-IB UPROFEN [id number] Sissy Junior RN lactobacillus (4 sources) Start: 10-02-2017 take 1 tablet by mouth once daily ACIDOPHILUS PROBIOTIC TABS One tablet by mouth daily LACTOBACILLUS [id number] Rbaia Yoder lactobacillus acidophilus 10 mg oral tablet (15 sources) Start: 03-13-2018 End: 03-13-2018 take 1 capsule by mouth once daily Lactobacillus Acidophilus (Acidophilus) capsule Discontinued 10 mg PO daily March 13, 2018 12:00am March 13, 2018 3:54pm lactobacillus acidophilus [id number] unt / pectin 10 mg oral capsule (2 sources) Start: 03-14-2017 End: 06-22-2023 take 1 tablet by mouth once daily acidophilus-pectin , citrus 100 million cell-10 mg cap Take 1 tablet by mouth once daily. 0 03/14/2017 06/22/2023 Discontinued (Course of therapy completed) Comment on above: Take 1 tablet by renetta th once daily. mecobalamin (10 sources) Start: 08-26-2023 End: 08-29-2023 take 1 tablet by mouth once daily Mecobalamin (Vitamin B12) 2,500 mcg tablet,chewable Discontinued 2500 ug PO DAILY August 26, 2023 12:00am August 29, 2023 8:58am Start: 08-26-2023 End: 08-29-2023 take 2500 ug by mouth once daily Mecobalamin (Vitamin B12) Discontinued 2500 MCG PO DAILY August 25, 2023 11:00pm August 29, 2023 7:58am Start: 08-26-2023 End: 08-29-2023 take 2500 ug by mouth once daily Mecobalamin (Vitamin B12) Discontinued 2500 MCG PO DAILY August 26, 2023 12:00am August 29, 2023 8:58am melatonin 3 mg oral tablet (19 sources) Start: 03-13-2018 End: 03-13-2018 take 1 tablet by mouth at bedtime as needed Melatonin 3 mg tablet Discontinued 3 mg PO BEDTIME as needed March 13, 2018 12:00am March 13, 2018 3:54pm Start: 10-02-2017 take 1 tablet by renetta th twice daily MELATONIN 3 MG CAPS One tablet by mouth twice daily MELATONIN [id number] Rabia Yoder metoprolol tartrate 25 mg oral tablet (10 sources) beta-Adrenergic Bud Start: 07-09-2024 End: 07-09-2024 take 1 tablet by mouth once daily Metoprolol Tartrate 25 mg tablet Discontinued 25 mg PO daily July 09, 2024 2:43pm July 09, 2024 2:52pm Start: 09-21-2023 End: 07-09-2024 take 1 tablet by mouth twice daily Metoprolol Tartrate 25 mg tablet Discontinued 25 mg PO TWICE A DAY September 21, 2023 12:00am July 09, 2024 2:43pm minocycline 100 mg oral capsule (19 sources) Tetracycline-class Drug Start: 03-13-2018 End: 03-13-2018 take 1 capsule by mouth twice daily Minocycline 100 mg capsule Discontinued 100 mg PO TWICE A DAY March 13, 2018 12:00am March 13, 2018 3:54pm Start: 10-02-2017 [facility] MIN[facility]CLINE HCL 100 MG TABS One tablet by mouth daily MINOCYCLINE HCL [id number] Rabia Yoder omeprazole 20 mg / sodium bicarbonate 1680 mg powder for oral suspension (1 source) Proton Pump Inhibitor Start: 12-17-2018 OMEPRAZOLE-SODIUM BICARBONATE 20-1680 MG PACK once daily as directed OMEPRAZOLE-SODIUM BICARBONATE [id number] Terena Junior RN pravastatin sodium 40 mg oral tablet (3 sources) HMG-CoA Reductase Inhibitor Start: 12-19-2023 End: 02-05-2024 take 1 tablet by mouth once daily Pravastatin 40 mg tablet Discontinued 40 mg PO DAILY 90 3 December 19, 2023 1:00am February 05, 2024 2:45pm traZODone hydrochloride 50 mg oral tablet (20 sources) Serotonin Reuptake Inhibitor Start: 08-26-2023 End: 08-29-2023 take 1 tablet by mouth at bedtime as needed Trazodone 50 mg tablet Discontinued 50 mg PO AT BEDTIME as needed August 29, 2023 8:58am August 29, 2023 9:06am 24 hr venlafaxine 75 mg extended release oral capsule (2 sources) Serotonin and Norepinephrine Reuptake Inhibitor Start: 01-14-2017 End: 06-22-2023 take 1 capsule by mouth once daily venlafaxine ER (EFFEXOR XR) 75 mg 24 hr capsule Take 1 capsule by mouth once daily. 90 capsule 01/14/2017 06/22/2023 Discontinued (Course of therapy completed) Comment on above: Take 1 capsule by mo [facility] once daily. Vitamin D3 10 mcg/mL (400 intl units/mL) oral liquid (1 source) Start: 10-21-2021 take 1 mL by mouth once daily Vitamin D3 10 mcg/mL (400 intl units/mL) oral liquid Dose : 10 mcg = 1 mL, Oral, qDay, 0 Refill(s) Start Date: 10/21/21 Status: Ordered Medication Dispense Status: Completed Total Allowed Fills: 1 Fills Dispensed: 0 Problems Active Problems Problem Classification Problem Date Documented Date Episodic/Chronic Asthma (10 sources) Asthma; Translations: [Unspecified asthma, uncomplicated] 11-05-2023 Chronic Benign neoplasm of uterus (1 source) Uterine leiomyoma 10-20-2020 Episodic Cardiac dysrhythmias (17 sources) Palpitations; Translations: [Palpitations] 08-29-2023 Episodic Coma; stupor; and brain damage (17 sources) Daytime somnolence; Translations: [Somnolence] 03-13-2018 Episodic Coronary atherosclerosis and other heart disease (20 sources) Coronary arteriosclerosis; Translations: [Atherosclerotic heart disease of [place] coronary artery without angina pectoris] Onset: 08-20-2024 10-04-2021 Chronic Disorders of lipid metabolism (4 sources) Dyslipidemia; Translations: [Hyperlipidemia, unspecified] 12-19-2023 Chronic Endometriosis (1 source) Endometriosis (clinical) 10-20-2020 Chronic Esophageal disorders (17 sources) Gastroesophageal reflux disease; Translations: [Gastro-esophageal reflux disease without esophagitis] 11-03-2020 Chronic Essential hypertension (18 sources) Hypertensive disorder; Translations: [Essential (primary) hypertension] 08-29-2023 Chronic Immunizations and screening for infectious disease (17 sources) Contact with or exposure to other viral diseases; Translations: [Exposure to COVID-19 virus] 09-30-2021 Episodic Inflammation; infection of eye (except that caused by tuberculosis or sexually transmitteddisease) (20 sources) Blepharitis of right upper eyelid; Translations: [Unspecified blepharitis right upper eyelid] Episodic Melanomas of skin (2 sources) Melanoma in situ of right lower limb, including hip; Translations: [Malignant melanoma of skin] Onset: 12-23-2018 12-23-2018 Chronic Menopausal disorders (19 sources) Menopausal and postmenopausal disorders; Translations: [Unspecified menopausal and perimenopausal disorder] Onset: 10-04-2017 10-04-2017 Chronic Nonspecific chest pain (20 sources) Chest pain; Translations: [Chest pain, unspecified] 11-03-2020 Episodic Osteoarthritis (2 sources) Idiopathic osteoarthritis; Translations: [Primary osteoarthritis, right shoulder] Onset: 10-04-2017 10-04-2017 Chronic Other ear and sense organ disorders (2 sources) Impacted cerumen; Translations: [Impacted cerumen, right ear] 02-11-2025 Episodic Other lower respiratory disease (6 sources) Cough; Translations: [Acute cough] Onset: 03-26-2017 03-26-2017 Episodic Other lower respiratory disease (17 sources) Snoring; Translations: [Snoring] 03-13-2018 Episodic Other lower respiratory disease (2 sources) Wheezing; Translations: [Wheezing] 06-22-2023 Episodic Other lower respiratory disease (1 source) Wheezing; Translations: [Wheezing] Onset: 06-22-2023 Episodic Other lower respiratory disease (6 sources) Dyspnea; Translations: [Shortness of breath] 11-05-2023 Episodic Other lower respiratory disease (6 sources) Nodule of lung; Translations: [Solitary pulmonary nodule] 11-05-2023 Episodic Other lower respiratory disease (3 sources) Solitary pulmonary nodule; Translations: [Solitary pulmonary nodule] 11-05-2023 Episodic Other lower respiratory disease (2 sources) Multiple nodules of lung; Translations: [Other nonspecific abnormal finding of lung field] 06-06-2024 Episodic Other non-traumatic joint disorders (2 sources) Joint pain; Translations: [Pain in unspecified joint] Onset: 08-18-2025 Episodic Other nutritional; endocrine; and metabolic disorders (2 sources) Disorder of iron metabolism; Translations: [Disorder of iron metabolism, unspecified] Onset: 08-04-2011 08-04-2011 Chronic Other upper respiratory disease (17 sources) Seasonal allergic rhinitis; Translations: [Other seasonal allergic rhinitis] 11-03-2020 Chronic [place]-; endo-; and myocarditis; cardiomyopathy (except that caused by tuberculosis or sexually transmitted disease) (10 sources) Pericardial effusion; Translations: [Pericardial effusion] 09-11-2023 Episodic Pleurisy; pneumothorax; pulmonary collapse (10 sources) Pleural effusion; Translations: [Pleural effusion, not elsewhere classified] 09-11-2023 Episodic Residual codes; unclassified (17 sources) Sleep apnea; Translations: [Sleep apnea, unspecified] 11-03-2020 Chronic Residual codes; unclassified (15 sources) Periodic limb movement disorder; Translations: [Periodic limb movement disorder] 11-03-2020 Chronic Residual codes; unclassified (2 sources) Periodic leg movements of sleep ; Translations: [Periodic limb movement disorder] 08-26-2023 Chronic Spondylosis; intervertebral disc disorders; other back problems (17 sources) Chronic back pain ; Translations: [Dorsalgia, unspecified] 11-03-2020 Episodic Unclassified (1 source) Acute cough; Translations: [Acute cough] Onset: 06-22-2023 Unclassified (1 source) Cough, unspecified; Translations: [Cough, unspecified] Onset: 07-17-2025 Viral infection (17 sources) Disease caused by 2019-nCoV; Translations: [COVID-19] 09-30-2021 Episodic Past or Other Problems Problem Classification Problem Date Documented Date Episodic/Chronic Other lower respiratory disease (1 source) Other nonspecific abnormal finding of lung field; Translations: [Other nonspecific abnormal finding of lung field] Onset: 10-09-2024 Episodic Other screening for suspected conditions (not mental disorders or infectious disease) (20 sources) Patient encounter status; Translations: [Encounter for screening for malignant neoplasm of colon] Onset: 10-30-2023 08-26-2023 Episodic Other upper respiratory infections (4 sources) Upper respiratory infection; Translations: [Acute upper respiratory infection, unspecified] Onset: 03-26-2017 03-26-2017 Episodic Residual codes; unclassified (17 sources) History of cardiac catheterization; Translations: [Other specified postprocedural states] Onset: 11-04-2020 11-08-2020 Episodic Comment on above: PROX LAD: 50 % Steno sis, FFR Ratio: 0.96DIAGONAL 1: Ostial - 60 % Stenosis, Ostial - FFR Ratio: 0.95. Medical therapy recommended by Dr. Douglass, 11/04/2020 Unclassified (4 sources) Family history of alcoholism; Translations: [Family history of alcohol abuse and dependence] 10-02-2017 Episodic Unclassified (1 source) Problem Varicose veins of lower extremity (2 sources) Venous varices; Translations: [Asymptomatic varicose veins of unspecified lower extremity] Onset: 11-17-2011 11-17-2011 Episodic Results Test Name Value Interpretation Reference Range Facility LABORATORYOrdered By: SYSTEM SYSTEM on 08-18-2025 Basophils (Bld) [#/Vol] 0.1 103/mcL Normal 0.0 - 0.3 10^3/mcL AO Workflow SS Basophils/100 WBC (Bld) 1.3 % Normal 0.0 - 2.5 % AO Workflow SS Calcium [Mass/Vol] 8.2 mg/dL Low 8.4 - 10. 2 mg/dL AO ADM SS Chloride [Moles/Vol] 105 mmol/L Normal 98 - 10 7 mmol/L AO ADM SS CK [Catalytic activity/Vol] 53 U/L Normal 26 - 192 U/L AO ADM SS CO2 [Moles/Vol] 30 mmol/L Normal 23 - 31 mmol/L AO ADM SS Creatinine [Mass/Vol] 0.71 mg/dL Normal 0.51 - 0.95 mg/dL AO ADM SS Electrolyte Balance 4.0 mEq/L Normal 4.0 - 15 .0 mEq/L AO ADM SS Eosinophil, Absolute 0.2 103/mcL Normal 0.0 - 0 .7 10^3/mcL AO Workflow SS Eosinophils/100 WBC (Bld) 4.3 % Normal 0.0 - 6.0 % AO Workflow SS Erythrocyte distribution width (RBC) [Ratio] 12.8 % Normal 11.5 - 15.5 % AO Workflow SS Estimated Glomerular Filtration Rate 97 ml/min/1.73sqm Invalid Interpretation Code AO Chemistry S Comment on above: Interpretive Data: Stages of Chronic Kidney Disease (CKD) Stage Description eGFR(ml/min/1.73 sq.m.) CKD 1 Normal kidney function or >=90 normal kindney function with possible kidney damage (ex. Proteinuria) CKD 2 Kidney damage with mild loss 60-89 of kidney function CKD 3a Mild to moderate loss of kidney 45-59 function CKD 3b Moderate to severe loss of 30-44 of kindey function CKD 4 Severe loss of kidney function 15-29 CKD 5 Kidney failure <15 Note: (go live 2024) the eGFR calculation was updated to the 2020 CKD-EPI creatinine equation without a race factor to calculate the eGFR results. Glucose [Mass/Vol] 96 mg/dL Normal 80 - 115 mg/dL AO ADM SS Hematocrit (Bld) [Volume fraction] 30.4 % Low 34.0 - 46.0 % AO Workflow SS Hemoglobin (Bld) [Mass/Vol] 11.0 G/dL Low 12.0 - 16.0 G/dL AO Workflow SS Lymphocytes (Bld) [#/Vol] 0.9 103/mcL Normal 0.9 - 4.3 10^3/mcL AO Workflow SS Lymphocytes/100 WBC (Bld) 20.5 % Normal 20.0 - 40.0 % AO Workflow SS Magnesium [Mass/Vol] 1.9 mg/dL Normal 1.8 - 2 .4 mg/dL AO ADM SS MCH (RBC) [Entitic mass] 34.0 pg High 27. 0 - 33.0 pg AO Workflow SS MCHC 36.1 G/dL High 32.0 - 36.0 G/dL AO Workflow SS MCV (RBC) [Entitic vol] 94.4 fL Normal 80.0 - 99.0 fL AO Workflow SS Monocyte distribution width Auto (Bld) [Entitic vol] 24.77 1 High 0.00 - 20.00 AO Workflow SS Comment on above: Result Comment: For adults in ED, MDW>20.0 may be associated with a higher risk of sepsis during the first 12hrs of hospital admission Monocytes (Bld) [#/Vol] 0.3 103/mcL Normal 0.1 - 1.4 10^3/mcL AO Workflow SS Monocytes/100 WBC (Bld) 7.0 % Normal 2.0 - 13.0 % AO Workflow SS Neutrophils (Bld) [#/Vol] 2.8 103/mcL Normal 2.3 - 8.1 10^3/mcL AO Workflow SS Neutrophils/100 WBC (Bld) 66.9 % Normal 50.0 - 75.0 % AO Workflow SS Platelet mean volume (Bld) [Entitic vol] 7.6 fL Normal 6.6 - 10.5 fL AO Workflow SS Platelets (Bld) [#/Vol] 145 103/mcL Low 150 - 450 10^3/mcL AO Workflow SS Potassium [Moles/Vol] 3.9 mmol/L Normal 3.5 - 5.1 mmol/L AO ADM SS RBC (Bld) [#/Vol] 3.22 106/mcL Low 4.10 - 5.30 10^6/mcL AO Workflow SS Sodium [Moles/Vol] 139 mmol/L Normal 136 - 145 mmol/L AO ADM SS Urea nitrogen [Mass/Vol] 8 mg/dL Normal 7 - 18 mg/dL AO ADM SS Urea nitrogen/Creatinine [Mass ratio] 11 ratio Normal 7 - 27 ratio AO ADM SS WBC (Bld) [#/Vol] 4.2 103/mcL Low 4.5 - 10.8 10^3/mcL AO Workflow SS LABORATORYOrdered By: Nessa Santiago on 08-18-2025 Color (U) Yellow (08/18/25 6:07 AM) Normal Yellow AO Auto Urine SS Glucose (U) [Mass/Vol] Negative Normal Negative AO Auto Urine SS Ketones Ql (U) Trace mg/dL Invalid Interpretation Code Negative AO Auto Urine SS UA Appear Clear (08/18/25 6:07 AM) Normal Clear AO Auto Urine SS UA Bili Small *ABN* (08/18/25 6:07 AM) Invalid Interpretation Code Negative AO Auto Urine SS UA Blood Trace (08/18/25 6:07 AM) Normal Negative AO Auto Urine SS UA Leuk Est Negative (08/18/25 6:07 AM) Normal Negative AO Auto Urine SS UA Nitrite Negative (08/18/25 6:07 AM) Normal Negative AO Auto Urine SS UA pH 6.5 (08/18/25 6:07 AM) Normal 5.0 - 8.0 AO Auto Urine SS UA Protein Negative Normal Negative AO Auto Urine SS UA RBC 0-2 /HPF Normal 0-2 AO Auto Urine SS UA Spec Grav 1.020 (08/18/25 6:07 AM) Normal 1.015-1.02 5 AO Auto Urine SS UA Specimen Type Not Given (08/18/25 6:07 AM) Normal AO Auto Urine SS UA Squam Epithelial 0-2 /HPF Normal 0-20 AO Au to Urine SS UA Urobilinogen 4.0 E.U./dL Invalid Interpretation Code 0.2-1.0 AO Auto Urine SS UA WBC 0-2 /HPF Normal 0-5 AO Auto Urine SS Chest PA and Lateralon 07-10 Chest PA and Lateral [facility] Imaging Services [address] [place] [address] Chest PA and Lateral MR#: [id number] Acct: [id number] Name: LACHELLE LOCKE Rep #: [id number] : 1965 F 59 From: Devante Hatch MD PCP: Dr. Jessica Perez MD Status: REG CLI Study: Chest PA and Lateral Date of Exam: 07/10/25 Exam# [id number] Ordering Dr: Lio Cardenas PROCEDURE: CHEST PA AND LATERAL 07/10/2025 REASON FOR EXAM: COUGH TECHNIQUE: CHEST PA AND LATERAL COMPARISON: CT chest 10/02/2024 FINDINGS: Hardware: None. Heart: The heart size is normal. Mediastinum: The mediastinal contour is unremarkable. Lungs: The lungs are clear. Bones: The bones are unremarkable. RAD/Chest PA and Lateral IMPRESSION: NO ACUTE FINDINGS. Reading Location: [facility] CC: Dr. Jessica Perez MD; DASHAWN Chambers Csr Technician: Signed Normal [facility] Urgent Care Visit Reporton 0 07-10-2025 Urgent Care Visit Report [facility] [address], [address] [place] [address] OFFICE VISIT Date of Service: 07/10/25 MR#: [id number] Acct: [id number] Name: LACHELLE LOCKE Rep #: [id number] : 1965 Provider: DASHAWN Chambers Age/Sex: 59/F Location: [facility] Status: Signed Intake Vital Signs 02/11/25 16:01 07/10/25 15:54 Height 5 ft 2 in 5 ft 2 in Weight: 130 lb 129 lb BMI 23.8 23.6 BP 124/80 H 120/78 Blood Pressure Location Lt brachial Position Sitting Sitting Pulse 90 94 Pulse Source Monitor Temp 98.2 F 98.2 F Temp Source Oral Oral Pulse Oximetry (%) 98 96 Oxygen Delivery Method room air room air Intake Visit Reasons: CONCERN FOR SINUS INFECTION Chief Complaint: Sinus Issues Accompanied by: Self Allergies No Known Allergies Allergy (Verified 07/10/25 15:52) Medications ???Medication ???Instructions ???Recorded ???Confirmed ???Type albuterol sulfate 90 mcg/actuation 2 puff inhalation Q4H PRN 07/10/25 History aerosol inhaler shortness of breath or wheezing aspirin 81 mg tablet,delayed 81 mg PO DAILY 08/26/23 07/10/25 H istory release cholecalciferol (vitamin D3) 50 50 mcg PO DAILY 08/29/23 07/10/25 History mcg (2,000 unit) capsule budesonide-formoterol HFA 160 2 puff inhalation BID #10.2 grams 05/13/24 07/10/25 Rx mcg-4.5 mcg/actuation aerosol inhaler (Symbicort) cyanocobalamin (vitamin B-12) 1,000 mcg PO DAILY 05/13/24 History 1,000 mcg capsule paroxetine HCl 10 mg tablet 10 mg PO QDAY 01/20/25 07/10/25 Hi story azithromycin 250 mg tablet 250 mg PO .COMPLEX #12 tabs 07/10/25 Rx Nurse's Note: chest congestion, sinus pressure, coughing, chest tightness when coughing, no longer coughing phlegm up. X 2 weeks. [facility] Medical History (Updated 02/11/25 @ 16:14 by Lio TAMEZ, PA) Impacted cerumen, right ear Dyslipidemia Lung nodule, multiple Encounter for screening colonoscopy Asthma Lung nodule SOB (shortness of breath) Wears glasses Post-menopausal Cancer Excessive bleeding Shortness of breath on exertion Former smoker History of edema History of echocardiogram History of stress test Cardiology follow-up encounter Pericardial effusion Pleural effusion on left Hypertension Chest tightness Palpitations Uterine fibroid Melanoma Encounter for screening for malignant neoplasm of colon Blepharitis of right upper eyelid CAD (coronary artery disease) COVID-19 Exposure to COVID-19 virus Chest pain GERD (gastroesophageal reflux disease) PLMD (periodic limb movement disorder) Mild sleep apnea Snoring Daytime somnolence Menopausal and postmenopausal disorder Chronic back pain Seasonal allergies Surgical History (Updated 02/11/25 @ 15:58 by Gloria Nam MA) Hx of melanoma excision History of esophagogastroduodenosco py (EGD) History of cardiac catheterization History of endometrial ablation Status post dilatation of esophageal stricture Hx of colonoscopy History of left heart catheterization (11/04/20) H/O right breast biopsy S/P bunionectomy Family History Mother COPD (chronic obstructive pulmonary disease) Emphysema lung Father Lung cancer Brother Pancreatic cancer Social History (Reviewed 03/04/25 @ 15:18 by Jessica Yates ENTRY LEVEL SOFTWARE DEVELOPER, ENTRY LEVEL SOFTWARE DEVELOPER-C) household members: spouse housing: [facility] current occupational status: employed current occupation: [employer] pets and animals: No Smoking Status: Former smoker quit date: 11/19/96 pack-years: 10 second hand exposure: No alcohol intake: current alcohol intake frequency: a few times a month Alcohol type: beer and wine substance use type: does not use caffeine: Yes Type: coffee Number of servings: 1 what type of physical activity do you participate in: walking and yoga frequency: 3-4 times per week HPI HPI Chief Complaint: Sinus Issues Details: LACHELLE LOCKE, is a 59 F who presents to the office today [facility] for approximately 2-week history of progressively worsening facial pressure/congestion with purulent postnasal drip/cough and left mid back discomfort. No complaints of fever, chills, myalgias, fatigue, runny nose, or nausea/vomiting/diarrhea . No complaints of chest pressure with shortness of breath or dyspnea on exertion. No close contacts with similar complaints. No other associated symptoms and no other alleviating/aggravating factors. ROS Const Constitutional: No other (as above) Exam Const General: cooperative, healthy appearing and no acute distress Nutritional Appearance: average body habitus Orientation: alert, awake and oriented x3 HENMT Head: normal to inspection Ears: hearing grossly n (more content not included)... Normal [facility] Urgent Care Visit Reporton 0 02-11-2025 Urgent Care Visit Report [facility] [address], [address] [place] [id number] OFFICE VISIT Date of Service: 02/11/25 MR#: [id number] Acct: [id number] Name: LACHELLE LOCKE Rep #: [id number] : 1965 Provider: DASHAWN Chambers Age/Sex: 59/F Location: [facility] Status: Signed Intake Vital Signs 01/20/25 09:01 02/11/25 16:01 Height 5 ft 2 in 5 ft 2 in Weight: 130 lb 130 lb BMI 23.8 23.8 BP 145/81 H 124/80 H Blood Pressure Location Lt brachial Position Sitting Sitting Respiration 18 Pulse 89 90 Pulse Source Monitor Temp 97.4 F L 98.2 F Temp Source Oral Pulse Oximetry (%) 96 98 Oxygen Delivery Method room air room air Intake Visit Reasons: R EAR PAIN Accompanied by: Self Allergies No Known Allergies Allergy (Verified 02/11/25 15:57) Medications ???Medication ???Instructions ???Recorded ???Confirmed ???Type albuterol sulfate 90 mcg/actuation 2 puff inhalation Q4H PRN 01/20/25 History aerosol inhaler shortness of breath or wheezing aspirin 81 mg tablet,delayed 81 mg PO DAILY 08/26/23 01/20/25 H istory release cholecalciferol (vitamin D3) 50 50 mcg PO DAILY 08/29/23 01/20/25 History mcg (2,000 unit) capsule budesonide-formoterol HFA 160 2 puff inhalation BID #10.2 grams 05/13/24 01/20/25 Rx mcg-4.5 mcg/actuation aerosol inhaler (Symbicort) cyanocobalamin (vitamin B-12) 1,000 mcg PO DAILY 05/13/24 History 1,000 mcg capsule paroxetine HCl 10 mg tablet 10 mg PO QDAY 01/20/25 02/11/25 Mi story Nurse's Note: Patient has Rt Ear clogged. Patient states the last couple days it felt like her ear was going go clog but then it would pop. Patient state this morning her ear clogged. [facility] Medical History (Updated 02/11/25 @ 16:14 by Lio TAMEZ, PA) Impacted cerumen, right ear Dyslipidemia Lung nodule, multiple Encounter for screening colonoscopy Asthma Lung nodule SOB (shortness of breath) Wears glasses Post-menopausal Cancer Excessive bleeding Shortness of breath on exertion Former smoker History of edema History of echocardiogram History of stress test Cardiology follow-up encounter Pericardial effusion Pleural effusion on left Hypertension Chest tightness Palpitations Uterine fibroid Melanoma Encounter for screening for malignant neoplasm of colon Blepharitis of right upper eyelid CAD (coronary artery disease) COVID-19 Exposure to COVID-19 virus Chest pain GERD (gastroesophageal reflux disease) PLMD (periodic limb movement disorder) Mild sleep apnea Snoring Daytime somnolence Menopausal and postmenopausal disorder Chronic back pain Seasonal allergies Surgical History (Updated 02/11/25 @ 15:58 by Gloria Nam MA) Hx of melanoma excision History of esophagogastroduodenosco py (EGD) History of cardiac catheterization History of endometrial ablation Status post dilatation of esophageal stricture Hx of colonoscopy History of left heart catheterization (11/04/20) H/O right breast biopsy S/P bunionectomy Family History Mother COPD (chronic obstructive pulmonary disease) Emphysema lung Father Lung cancer Brother Pancreatic cancer Social History household members: spouse housing: [facility] current occupational status: employed current occupation: [employer] pets and animals: No Smoking Status: Former smoker quit date: 11/19/96 pack-years: 10 second hand exposure: No alcohol intake: current alcohol intake frequency: a few times a month Alcohol type: beer and wine substance use type: does not use caffeine: Yes Type: coffee Number of servings: 1 what type of physical activity do you participate in: walking and yoga frequency: 3-4 times per week HPI HPI Details: LACHELLE LOCKE, is a 59 F who presents to the office today [facility] new onset muffled hearing appreciated this morning upon awakening. No complaints of fever, chills, sweats, lightheadedness/dizzines s, nausea/vomiting. No [id number] Proxima taken to assist and no foreign bodies have been introduced to her right ear she so states. No other associated symptoms and no other alleviating/aggravating factors. ROS Const Constitutional: No other (As above) Exam Const General: cooperative, healthy appearing and no acute distress Nutritional Appearance: average body habitus Orientation: alert and awake [facility] Head: normal to inspection Ears: hearing grossly normal bilaterally, external ears normal, TM's normal bilaterally (After AD cerumen impaction removal; see procedure) and EAC's normal Nose: external nose normal Resp Effort Inspection: normal r (more content not included)... Normal [facility] Pulmonary Visit Reporton Pulmonary Visit Report [facility] [place] [address] [place] [address] OFFICE VISIT Date of Service: 01/20/25 MR#: [id number] Acct: [id number] Name: LACHELLE LOCKE Rep #: [id number] : 1965 Provider: RANDALL Yates Age/Sex: 59/F Location: [facility] Status: Signed Assessment and Plan Assessment and Plan (1) Lung nodule, multiple: Status: Acute Plan: Continue surveillance by repeating a CT of the chest in 12 months to ensure stability. Follow up with Dr Bryant in October to discuss test results. (2) Asthma: Status: Chronic Qualifiers: Asthma severity: severe Asthma persistence: persistent Asthma complication type: uncomplicated Qualified Code(s): J45.50 - Severe persistent asthma, uncomplicated Plan: Symptomatically controlled at this time. No change in maintenance medications, continue Symbicort (or generic). No additional testing at this time. Follow-up in the office in 9 months. Orders: Orders Chest without Contrast 09/19/25 R91.8 - Other nonspecific abnormal finding of lung field Plan Details Follow Up: 10/19/25 (DMB) HPI 6 M FU Chief Complaint: Test results HPI Comments Details: This patient presents to the office today for follow-up on test results and follow-up on her asthma. She is ambulatory and currently on room air. She has not recently been seen in the ED or urgent care for any respiratory illness. She has not required any antibiotics or prednisone for any breathing problems. She continues compliance with the use of Symbicort 2 puffs twice daily. She does report rinsing her mouth out after each use. She denies any medication side effect such as sore throat or thrush. She has not recently needed to use her albuterol rescue inhaler. She continues complete smoking cessation. If you recall, she quit smoking 25 or 30 years ago. She denies any difficulty with shortness of breath. She denies any cough, sputum production or hemoptysis. She denies any wheezing, chest tightness, chest pain or palpitations. She also denies any fever, chills or body aches. Test results personally reviewed with patient: CT of the chest without contrast completed on October 02, 2024. No significant mediastinal hilar lymphadenopathy. Groundglass nodules noted throughout bilateral upper lobes, right greater than left. 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 Surveillance CT imaging of the 3-month interval is recommended. Intake Vital Signs 05/13/24 07:57 07/09/24 14:39 01/20/25 09:01 Height 5 ft 2 in 5 ft 2 in 5 ft 2 in Weight: 130 lb BMI 23.8 BP 145/81 H Blood Pressure Location Lt brachial Position Sitting Respiration 18 Pulse 89 Pulse Source Monitor Temp 97.4 F L Temperature Source Temporal Artery Pulse Oximetry (%) 96 Oxygen Delivery Method room air Intake Visit Reasons: 6 M FU Chief Complaint: MONOCLONAL INFUSION Enrollment Advisor Required: No Accompanied by: Self Allergies No Known Allergies Allergy (Verified 01/20/25 15:14) Medications ???Medication ???Instructions ???Recorded ???Confirmed ???Type albuterol sulfate 90 mcg/actuation 2 puff inhalation Q4H PRN 01/20/25 History aerosol inhaler shortness of breath or wheezing aspirin 81 mg tablet,delayed 81 mg PO DAILY 08/26/23 01/20/25 H istory release cholecalciferol (vitamin D3) 50 50 mcg PO DAILY 08/29/23 01/20/25 History mcg (2,000 unit) capsule budesonide-formoterol HFA 160 2 puff inhalation BID #10.2 grams 05/13/24 01/20/25 Rx mcg-4.5 mcg/actuation aerosol inhaler (Symbicort) cyanocobalamin (vitamin B-12) 1,000 mcg PO DAILY 05/13/24 History 1,000 mcg capsule paroxetine HCl 10 mg tablet 10 mg PO QDAY 01/20/25 01/20/25 Hi story PFSH Medical History (Reviewed 01/20/25 @ 15:18 by Jessica Yates ENTRY LEVEL SOFTWARE DEVELOPER, ENTRY LEVEL SOFTWARE DEVELOPER-C) Dyslipidemia Lung nodule, multiple Encounter for screening colonoscopy Asthma Lung nodule SOB (shortness of breath) Wears glasses Post-menopausal Cancer Excessive bleeding Shortness of breath on exertion Former smoker History of edema History of echocardiogram History of stress test Cardiology follow-up encounter Pericardial effusion Pleural effusion on left Hypertension Chest tightness Palpitations Uterine fibroid Melanoma Encounter for screening for malignant neoplasm of colon Blepharitis of right upper eyelid CAD (coronary artery disease) COVID-19 Exposure to COVID-19 virus Chest pain GERD (gastroesophageal reflux disease) PLMD (periodic limb movement disorder) Mild sleep apnea Snoring Daytime somnolence Menopausal and postmenopausal disorder Chronic back pain Seasonal allergies Surgical History (Reviewed 01/20/25 @ 15:18 b (more content not included)... Normal [facility] SCRN MAMM (CAD)W/ONI BILATo n 12-11-2024 SCRN MAMM (CAD)W/ONI BILAT [facility] Imaging Services [address] [place] [address] SCRN MAMM (CAD)W/ONI BILAT MR#: [id number] Acct: [id number] Name: LACHELLE LOCKE Rep #: [id number] : 1965 F 59 From: Ashok tellez MD PCP: Dr. Jessica Perez MD Status: [facility] Study: SCRN MAMM (CAD)W/ONI BILAT Date of Exam: 11/20 02/10 Exam# [id number] Ordering Dr: Isabel Greenfield MD [id number] MAMMOGRAPHY - BILATERAL SCREENING REASON FOR EXAM: Female, 59 years old. Routine annual screening examination. PERTINENT HISTORY: Non-contributory. TECHNIQUE: Digital bilateral breast oni (3D mammographic acquisition) in the CC and MLO projections. 2-D mediolateral oblique (MLO) and craniocaudad (CC) views of both breasts were obtained. CAD: Full Field Digital Mammography with Computer Added Detection was performed. COMPARISON: Comparison is made with prior study dated November 20, 2023 and November 15, 2022. FINDINGS: Breast Composition: The breasts are heterogeneously dense, which may obscure small masses. There are no dominant masses or suspicious calcifications. Stable small benign-appearing bilateral axillary lymph nodes. No other significant abnormalities are identified. There has been no significant change since the prior study. BI/SCRN MAMM (CAD)W/ONI BILAT IMPRESSION: Stable bilateral screening mammogram. Yearly follow-up mammogram recommended. (A) ASSESSMENT CATEGORY: BIRADS Category 2: Benign. A letter regarding these results will be sent to the patient by the facility within 30 days. Approximately 10% of breast cancers are not detected by mammography. A normal mammogram should not delay biopsy of a clinically suspicious abnormality. [id number] Electronically Signed: Ashok Mccurdy MD at 8:50 EST Reading Location ID and State: [facility] / [place] , Service support , CC: Dr. Isabel Greenfield MD; Dr. Jessica Perez MD Csr Technician: Signed Normal [facility] Chest without Contraston Chest without Contrast [facility] Imaging Services [address], [place] [address] Chest without Contrast MR#: [id number] Acct: [id number] Name: LACHELLE LOCKE Rep #: [id number] : 1965 F 58 From: Darin Matos MD PCP: Dr. Jessica Perez MD Status: [facility] Study: Chest without Contrast Date of Exam: 10/02/24 Exam# [id number] Ordering Dr: Jessica Yaets ENTRY LEVEL SOFTWARE DEVELOPER ENTRY LEVEL SOFTWARE DEVELOPER-C [id number] STUDY: CT CHEST WITHOUT CONTRAST REASON FOR EXAM: Female, 58 years old. Lung nodules RADIATION DOSAGE (If Supplied By Facility): CTDIvol = ( 6.24 ) mGy, DLP = ( 224.61 ) mGycm TECHNIQUE: Transaxial CT imaging of the chest was performed without administration of intravenous contrast material, followed by coronal and sagittal reformatting. Individualized dose optimization techniques were used for this CT. COMPARISON: No relevant priors. FINDINGS: SUPRACLAVICULAR SOFT TISSUES: Supraclavicular soft tissues are normal. Thyroid gland is normal. MEDIASTINUM: No significant mediastinal or hilar lymphadenopathy. Shotty bilateral axillary lymph nodes. Tracheal bronchial tree and esophagus are normal.. LUNGS: No confluent airspace infiltrate. Groundglass nodules noted throughout bilateral upper lobes, right greater than left. Calcified nodule at the left lateral lung base, consistent with old healed granulomatous disease. No pleural effusion or pneumothorax. UPPER ABDOMEN: Visualized portions of the upper abdomen demonstrate hypoattenuated lesions within the liver, too small to characterize.. SKELETAL STRUCTURES: No acute skeletal abnormality. CT/Chest without Contrast IMPRESSION: 1. Groundglass nodules scattered throughout bilateral upper lobes, right greater than left, potentially infectious or inflammatory in etiology. Surveillance CT imaging of the 3 month interval is recommended to document stability/resolution. 2. Hypoattenuated lesions scattered throughout the liver, too small to characterize but likely representing cysts versus hemangiomas. Dedicated MR imaging of the liver could be obtained for further characterization. Electronically Signed: Darin Matos MD at 1:11 EST , CC: RANDALL Yates; Dr. Jessica Perez MD Csr Technician: Signed Normal [facility] Lipid Profileon 07-30-2024 Cholesterol [Mass/Vol] 225 mg/dL High 200 [facility] Comment on above: Result Comment: <200 mg/dL Desirable 200-240 mg/dL Borderline >240 mg/dL High Risk Performed By: #### L 970.3050 #### [facility] [address] [place], [place], [id number] Cholesterol in HDL [Mass/Vol] 75 mg/dL Normal [facility] Comment on above: Result Comment: The drugs N-Acetylcysteine and Metamizole may falsely depress this assay. Reference Range HDL <40 mg/dL Low HDL Cholesterol HDL >or= 60 mg/dL High HDL Cholesterol Performed By: #### L 500.4100 #### [facility] [address] [place], [address] Cholesterol in LDL [Mass/Vol] 129 mg/dL Normal 0-130 [facility] Comment on above: Performed By: #### L 500.4100 #### [facility] [address] [place], [address] Cholesterol in VLDL [Mass/Vol] 21 mg/dL Normal 5-40 [facility] Comment on above: Performed By: #### L 500.4100 #### [facility] [address] [place], [address] Triglyceride [Mass/Vol] 106 mg/dL Normal [facility] Comment on above: Result Comment: The drugs N-Acetylcysteine and Metamizole may falsely depress this assay. Serum Triglycerides Reference Interval Normal <150 mg/dL Borderline high 150 - 199 mg/dL High 200 - 499 mg/dL Very High > or = 500 mg/dL Performed By: #### L 500.4100 #### [facility] [address] [place], [address] [facility] Cytology Reporton 2022 [facility] Cytology Report . Pathology Reports Accession: Collected Date/Time: Received Date/Time: Pathologist: [id number] 10/30/2023 09:41 EST 10/31/2023 18:00 EST [facility] Cytology Report SPECIMEN: Specimen Description: Liquid Prep w/ HPV Specimen: Cervical/Endocervical Screening or Diagnostic: Screening RELEVANT HISTORY: LMP: menopause SPECIMEN ADEQUACY: SATISFACTORY FOR EVALUATION Endocervical/Transformat ional zone component presence can not be determined due to marked atrophy INTERPRETATION/RESULTS: NEGATIVE FOR INTRAEPITHELIAL LESION OR MALIGNANCY HIGH RISK HPV TESTING: Event Code Result HPV Interp See Interp HPVN HPV Interp Text: High Risk HPV Typing: NEGATIVE HPV types 16, 18, 31, 33, 35, 39, 45, 51, 52, 56, 58, 59, 66 and 68 DNA were undetectable or below the pre-set threshold. The aliyah High-Risk HPV DNA Test is not intended for use as a screening device for Pap normal women under age 30 and is not intended to substitute for regular Pap screening. The aliyah High-Risk HPV DNA Test is designed to augment existing methods for the detection of cervical disease and should be used in conjunction with clinical information derived from other diagnostic and screening tests, physical examinations and full medical history in accordance with appropriate patient management procedures. NOTE: A negative result does not preclude the presence of HPV infection because results depend on adequate specimen collection, absence of inhibitors and sufficient DNA to be detected. As of: 11/07/23 11:00 EST COMMENT: This Pap Test was successfully processed and evaluated with the assistance of the [employer] Test Imaging System. Pathology Reports Accession: Collected Date/Time: Received Date/Time: Pathologist: [id number] 10/30/2023 09:41 EST 10/31/2023 18:00 EST Electronically Signed by Pathology report verified by [facility] Screened by: KK Electronically signed by Joselin EVERETT (ASCP) Sign-Out Date: 11/07/2023 11:00 Performing Lab: [facility], [address] [place] [address] Pathology Dept Disclaimer The Pap test is a screening test for cervical cancer. As evidenced by published data, it is subject to both inherent false negative and false positive results. Your patient's results should be interpreted in context with pertinent clinical history including gynecological examination. Normal On [facility] Of [facility] ([place] HPVon 11-07-2023 HPV Interp Normal See Interp HPVN On [facility] Of [facility] [place] Comment on above: Order Comment: Order placed by AP_HPV_ORDER rule from [id number] Result Comment: High Risk HPV Typing: NEGATIVE HPV types 16, 18, 31, 33, 35, 39, 45, 51, 52, 56, 58, 59, 66 and 68 DNA were undetectable or below the pre-set threshold. The aliyah High-Risk HPV DNA Test is not intended for use as a screening device for Pap normal women under age 30 and is not intended to substitute for regular Pap screening. The aliyah High-Risk HPV DNA Test is designed to augment existing methods for the detection of cervical disease and should be used in conjunction with clinical information derived from other diagnostic and screening tests, physical examinations and full medical history in accordance with appropriate patient management procedures. NOTE: A negative result does not preclude the presence of HPV infection because results depend on adequate specimen collection, absence of inhibitors and sufficient DNA to be detected. See Interp HPVN Performed By: #### H PV #### [address] [address] HPV Source Cervix Normal On License Of [facility] Comment on above: Order Comment: Order placed by AP_HPV_ORDER rule from [id number] Performed By: #### H PV #### [address] [address] Absolute lymphocyte countOrd ered By: Eamon Bryant on 11-05-2023 Lymphocytes Auto (Unsp spec) [#/Vol] 1.35 10*3/uL 0.83-4.51 [facility] Alternaria alternata IgE ser umOrdered By: Eamon Bryant on 11-05-2023 A. alternata IgE Qn (S) 0.13 kU/L Class 0/I [facility] Atypical perinuclear antineu trophil cytoplasmic antibodies measurementOrdered By: Eamon Bryant on 11-05-2023 Neutrophil cytoplasmic Ab.perinuclear.atypical IF (S) [Titer] <1:20 titer Neg:<1:20 [facility] Comment on above: The atypical pANCA p attern has been observed in asignificant percentage of patients with ulcerative colitis,primary sclerosing cholangitis and autoimmune hepatitis. Basophil percentageOrdered B y: Eamon Bryant on 11-05-2023 Basophils/100 WBC (Bld) 0.8 % 0-1 [facility] Eosinophils/100 WBC (Bld) 8.6 % 0-5 [facility] Neutrophils (Bld) [#/Vol] 5.0 10*3/uL 2.0-7.7 [facility] Neutrophils/100 WBC (Bld) 67.2 % 47-70 [facility] WBC (Bld) [#/Vol] 7.5 10*3/uL 4.4-11.0 [facility] Blood erythrocytes count (nu mber/volume)Ordered By: Eamon Bryant on 11-05-2023 RBC (Bld) [#/Vol] 4.71 10*6/uL 4.2-5.4 [facility] Blood hemoglobin measurement (mass/volume)Ordered By: Eamon Bryant on 11-05-2023 Hemoglobin (Bld) [Mass/Vol] 14.5 g/dL 12.0-15.0 [facility] Blood lymphocytes/100 leukoc ytesOrdered By: Eamon Bryant on 11-05-2023 Lymphocytes/100 WBC (Bld) 18.0 % 19-41 [facility] Blood monocytes/100 leukocyt esOrdered By: Eamon Bryant on 11-05-2023 Monocytes/100 WBC (Bld) 5.1 % 0-10 [facility] Blood platelet mean volumeOr dered By: Eamon Bryant on 11-05-2023 Platelet mean volume (Bld) [Entitic vol] 10.1 fL 6.2-12.0 [facility] Determination of erythrocyte mean corpuscular volume (MCV)Ordered By: Eamon Bryant on 11-05-2023 MCV (RBC) [Entitic vol] 91.7 fL 81-99 [facility] Hematocrit Auto (Bld) [Volum e fraction]Ordered By: Eamon Bryant on 11-05-2023 Hematocrit (Bld) [Volume fraction] 43.2 % 37-47 [facility] - Hematology and Cell countsOrdered By: Eamon Bryant on 11-05-2023 Erythrocyte distribution width (RBC) [Entitic vol] 40.1 fL 35.1-43.9 [facility] Erythrocyte distribution width (RBC) [Ratio] 11.9 % 11.6-14.6 [facility] Immature granulocytes/100 WBC (Bld) 0.300 % 0.0-0.9 [facility] Comment on above: IG% - Immature Granu locytes (promyelocytes, myelocytes and metamyelocytes) > 1% indicates that a LEFT SHIFT is Present. MCH (RBC) [Entitic mass] 30.8 pg 27.0-32.0 [facility] Nucleated RBC/100 WBC (Bld) [Ratio] 0 % 0-5 [facility] MCHC Auto (RBC) [Mass/Vol]Or dered By: Eamon Bryant on 11-05-2023 MCHC (RBC) [Mass/Vol] 33.6 g/dL 32-36 [facility] No Panel InformationOrdered By: Eamon Bryant on 11-05-2023 Cat Hair Allergen 3.79 kU/L Class III [facility] Common Ragweed (Short) Allergen 2.71 kU/L Class III [facility] Immunoglobulin E 533 IU/mL 6-495 [facility] Maple ([place]) Allergen IgE Ab 0.40 kU/L Class I [facility] Mouse Urine Allergen IgE Antibody <0.10 kU/L Class 0 [facility] Comment on above: Performed at: [facility] [employer] [id number] Director: Acosta Pinto MD, Phone: [phone] RAST Comment Comment . [facility] Comment on above: Levels of Specific I gE Class Description of Class ----- < 0.10 0 Negative 0.10 - 0.31 0/I Equivocal/Low 0.32 - 0.55 I Low 0.56 - 1.40 II Moderate 1.41 - 3.90 III High 3.91 - 19.00 IV Very High 19.01 - 100.00 V Very High >100.00 Very High [place] Allergen 0.36 kU/L Class I [facility] No Panel InformationOrdered By: Isabel Greenfield on 11-05-2023 Miscellaneous Test Comment MAILED SPECIMEN [facility] Platelets bldOrdered By: Silverman on 11-05-2023 Platelets (Bld) [#/Vol] 233 10*3/uL 150-450 [facility] Rough pigweed specific IgE a ntibody assayOrdered By: Eamon Bryant on 11-05-2023 Rough Pigweed IgE Qn (S) 0.21 kU/L Class 0/I [facility] Serum Albanian sycamore IgE antibody assay (units/volume)Ordered By: Eamon Bryant on 11-05-2023 [place]ian [place] IgE Qn (S) 0.40 kU/L Class I [facility] Serum Aspergillus flavus ant ibody detection by immunodiffusionOrdered By: Eamon Bryant on 11-05-2023 A. flavus Ab Immune diff Ql (S) Negative Neg:<1:1 [facility] Serum Aspergillus fumigatus IgE antibody assay (units/volume)Ordered By: Eamon Bryant on 11-05-2023 A. fumigatus IgE Qn (S) <0.10 kU/L Class 0 [facility] Serum Aspergillus fumigatus antibody detection by immunodiffusionOrdered By: Eamon Bryant on 11-05-2023 A. fumigatus Ab Immune diff Ql (S) Negative Neg:<1:1 [facility] Serum Aspergillus niger anti body detection by immunodiffusionOrdered By: Eamon Bryant on 11-05-2023 A. niger Ab Immune diff Ql (S) Negative Neg:<1:1 [facility] Serum Bermuda grass IgE anti body assay (units/volume)Ordered By: Eamon Bryant on 11-05-2023 Berm[place] grass IgE Qn (S) 0.49 kU/L Class I [facility] Serum Cladosporium herbarum IgE antibody assay (units/volume)Ordered By: Eamon Bryant on 11-05-2023 C. herbarum IgE Qn (S) <0.10 kU/L Class 0 [facility] Serum Dermatophagoides farin ae specific IgE antibody assay (units/volume)Ordered By: Eamon Bryant on 11-05-2023 Albanian house dust mite IgE Qn (S) <0.10 kU/L Class 0 [facility] Serum house dust mi te IgE antibody assay (units/volume)Ordered By: Eamon Bryant on 11-05-2023 house dust mite IgE Qn (S) <0.10 kU/L Class 0 [facility] Serum Penicillium notatum Ig E antibody assay (units/volume)Ordered By: Eamon Bryant on 11-05-2023 P. notatum IgE Qn (S) <0.10 kU/L Class 0 [facility] Serum Periplaneta americana IgE antibody assay (units/volume)Ordered By: Eamon Bryant on 11-05-2023 Albanian Cockroach IgE Qn (S) <0.10 kU/L Class 0 [facility] Serum Welsh thistle specif ic IgE antibody assayOrdered By: Eamon Bryant on 11-05-2023 Saltwort IgE Qn (S) 0.18 kU/L Class 0/I [facility] Serum birch specific IgE ant ibody assayOrdered By: Eamon Bryant on 11-05-2023 Silver Birch IgE Qn (S) 0.35 kU/L Class I [facility] Serum black walnut IgE antib yaya assay (units/volume)Ordered By: Eamon Bryant on 11-05-2023 Black [place] IgE Qn (S) 0.41 kU/L Class I [facility] Serum classic neutrophil cyt oplasmic antibody assay (units/volume)Ordered By: Eamon Bryant on 11-05-2023 Neutrophil cytoplasmic Ab.classic Qn (S) <1:20 titer Neg:<1:20 [facility] Serum cottonwood IgE antibod y assay (units/volume)Ordered By: Eamon Bryant on 11-05-2023 Bethany IgE Qn (S) 0.37 kU/L Class I [facility] Serum dog epithelium IgE ant ibody assay (units/volume)Ordered By: Eamon Bryant on 11-05-2023 Dog epithelium IgE Qn (S) 1.72 kU/L Class III [facility] Serum mountain cedar specifi c IgE antibody assayOrdered By: Eamon Bryant on 11-05-2023 Mountain Juniper IgE Qn (S) 0.31 kU/L Class 0/I [facility] Serum pecan or hickory nut I gE antibody assay (units/volume)Ordered By: Eamon Bryant on 11-05-2023 Pecan or [place] Nut IgE Qn (S) 0.43 kU/L Class I [facility] Serum perinuclear neutrophil cytoplasmic antibody titer by immunofluorescenceOrdered By: Eamon Bryant on 11-05-2023 Neutrophil cytoplasmic Ab.perinuclear IF (S) [Titer] <1:20 titer Neg:<1:20 [facility] Comment on above: The presence of posi tive fluorescence exhibiting P-ANCA orC-ANCA patterns alone is not specific for the diagnosis ofWegener's Granulomatosis (WG) or microscopic polyangiitis.Decisions about treatment should not be based solely onANCA IFA results. The [employer] ANCA [employer] Consensusrecommends follow up testing of positive sera with both HI-3 and MPO-ANCA enzyme immunoassays. As many as 5% serumsamples are positive only by EIA. Ref. AM J Clin [id number];111:507-513. Serum sheep sorrel IgE antib yaya assay (units/volume)Ordered By: Eamon Bryant on 11-05-2023 Sheep [place] IgE Qn (S) 0.22 kU/L Class 0/I [facility] Serum quiana IgE antibody a ssay (units/volume)Ordered By: Eamon Bryant on 11-05-2023 Quiana IgE Qn (S) 6.44 kU/L Class IV [facility] Serum white raj IgE antibody assay (units/volume)Ordered By: Eamon Bryatn on 11-05-2023 White Raj IgE Qn (S) 0.43 kU/L Class I [facility] Serum white elm IgE antibody assay (units/volume)Ordered By: Eamon Bryant on 11-05-2023 White Elm IgE Qn (S) 0.34 kU/L Class I [facility] Serum white mulberry IgE ant ibody assay (units/volume)Ordered By: Eamon Bryant on 11-05-2023 White mulberry IgE Qn (S) 0.20 kU/L Class 0/I [facility] Basophil percentageOrdered B y: Jacob Tijerina on 10-04-2023 Chloride [Moles/Vol] 105 mmol/L 98-107 [facility] Glucose [Mass/Vol] 70 mg/dL 74-106 [facility] Potassium [Moles/Vol] 5.0 mmol/L 3.5-5.1 [facility] Sodium [Moles/Vol] 141 mmol/L 136-145 [facility] WBC (Bld) [#/Vol] 6.1 10*3/uL 4.4-11.0 [facility] Blood erythrocytes count (nu mber/volume)Ordered By: Jacob Tijerina on 10-04-2023 RBC (Bld) [#/Vol] 5.05 10*6/uL 4.2-5.4 [facility] Blood hemoglobin measurement (mass/volume)Ordered By: Jacob Tijerina on 10-04-2023 Hemoglobin (Bld) [Mass/Vol] 15.3 g/dL 12.0-15.0 [facility] Blood platelet mean volumeOr dered By: Jacob Tijerina on 10-04-2023 Platelet mean volume (Bld) [Entitic vol] 10.7 fL 6.2-12.0 [facility] Determination of erythrocyte mean corpuscular volume (MCV)Ordered By: Jacob Tijerina on 10-04-2023 MCV (RBC) [Entitic vol] 91.5 fL 81-99 [facility] Hematocrit Auto (Bld) [Volum e fraction]Ordered By: Jacob Tijerina on 10-04-2023 Hematocrit (Bld) [Volume fraction] 46.2 % 37-47 [facility] - Chemistry and C hemistry - challengeOrdered By: Jacob Tijerina on 10-04-2023 CO2 [Moles/Vol] 31.0 mmol/L 21.0-32.0 [facility] Urea nitrogen/Creatinine [Mass ratio] 24.6 mg/mg 10-20 [facility] - Hematology and Cell countsOrdered By: Jacob Tijerina on 10-04-2023 Erythrocyte distribution width (RBC) [Entitic vol] 41.2 fL 35.1-43.9 [facility] Erythrocyte distribution width (RBC) [Ratio] 12.4 % 11.6-14.6 [facility] MCH (RBC) [Entitic mass] 30.3 pg 27.0-32.0 [facility] MCHC Auto (RBC) [Mass/Vol]Or dered By: Jacob Tijerina on 10-04-2023 MCHC (RBC) [Mass/Vol] 33.1 g/dL 32-36 [facility] No Panel InformationOrdered By: Jacob Tijerina on 10-04-2023 Estimated GFR (MDRD) Amer 83 mL/min >60 [facility] Comment on above: GFR Calc Estimated GFR (MDRD) Non-Af Amer 68 mL/min >60 [facility] Comment on above: Non- GFR Calc Platelets bldOrdered By: Marjan Tijerina on 10-04-2023 Platelets (Bld) [#/Vol] 239 10*3/uL 150-450 [facility] Serum or plasma calcium anderson urement (mass/volume)Ordered By: Jacob Tijerina on 10-04-2023 Calcium [Mass/Vol] 8.8 mg/dL 8.5-10.1 [facility] Serum or plasma creatinine m easurement (mass/volume)Ordered By: Jacob Tijerina on 10-04-2023 Creatinine [Mass/Vol] 0.89 mg/dL 0.55-1.02 [facility] Comment on above: The validity of the calculated GFR & GFRAA in patients over 70 years has not been determined. Clinical correlation is essential. Serum or plasma urea nitroge n measurement (mass/volume)Ordered By: Jacob Tijerina on 10-04-2023 Urea nitrogen [Mass/Vol] 22 mg/dL 7-18 [facility] Thin prep Papanicolaou smear with manual screeningOrdered By: Jacob Tijerina on 10-04-2023 Thin prep Papanicolaou smear with manual screening 5 5-15 [facility] Basophil percentageOrdered B y: Jacob Tijerina on 09-19-2023 Chloride [Moles/Vol] 102 mmol/L 98-107 [facility] Cholesterol [Mass/Vol] 264 mg/dL <200 [facility] Comment on above: <200 mg/dL Desirable 200-240 mg/dL Borderline >240 mg/dL High Risk Glucose [Mass/Vol] 104 mg/dL 74-106 [facility] Comment on above: Fasting Glucose resu lt from 100 to 125 mg/dL suggests IMPAIRED HOMEOSTASIS per A.D.A. criteria. Potassium [Moles/Vol] 3.6 mmol/L 3.5-5.1 [facility] Sodium [Moles/Vol] 139 mmol/L 136-145 [facility] Triglyceride [Mass/Vol] 129 mg/dL <199 [facility] Comment on above: The drugs N-Acetylcy steine and Metamizole may falsely depress this assay.Serum Triglycerides Reference Interval Normal <150 mg/dL Borderline high 150 - 199 mg/dL High 200 - 499 mg/dL Very High > or = 500 mg/dL Laboratory - Chemistry and C hemistry - challengeOrdered By: Jacob Tijerina on 09-19-2023 CO2 [Moles/Vol] 29.0 mmol/L 21.0-32.0 [facility] Magnesium [Mass/Vol] 2.3 mg/dL 1.6-2.6 [facility] Urea nitrogen/Creatinine [Mass ratio] 30.2 mg/mg 10-20 [facility] No Panel InformationOrdered By: Jacob Tijerina on 09-19-2023 Estimated GFR (MDRD) Amer 76 mL/min >60 [facility] Comment on above: GFR Calc Estimated GFR (MDRD) Non-Af Amer 63 mL/min >60 [facility] Comment on above: Non- GFR Calc Serum or plasma calcium anderson urement (mass/volume)Ordered By: Jacob Tijerina on 09-19-2023 Calcium [Mass/Vol] 9.3 mg/dL 8.5-10.1 [facility] Serum or plasma cholesterol in HDL measurement (mass/volume)Ordered By: Jacob Tijerina on 09-19-2023 Cholesterol in HDL [Mass/Vol] 70 mg/dL >40 [facility] Comment on above: The drugs N-Acetylcy steine and Metamizole may falsely depress this assay. Reference Range HDL <40 mg/dL Low HDL Cholesterol HDL >or= 60 mg/dL High HDL Cholesterol Serum or plasma cholesterol in VLDL measurement (mass/volume)Ordered By: Jacob Tijerina on 09-19-2023 Cholesterol in VLDL [Mass/Vol] 26 mg/dL 5-40 [facility] Serum or plasma creatinine m easurement (mass/volume)Ordered By: Jacob Tijerina on 09-19-2023 Creatinine [Mass/Vol] 0.96 mg/dL 0.55-1.02 [facility] Comment on above: The validity of the calculated GFR & GFRAA in patients over 70 years has not been determined. Clinical correlation is essential. Serum or plasma low density lipoprotein (LDL) cholesterol measurement (mass/volume)Ordered By: Jacob Tijerina on 09-19-2023 Cholesterol in LDL [Mass/Vol] 168 mg/dL 0-130 [facility] Serum or plasma urea nitroge n measurement (mass/volume)Ordered By: Jacob Tijerina on 09-19-2023 Urea nitrogen [Mass/Vol] 29 mg/dL 7-18 [facility] Thin prep Papanicolaou smear with manual screeningOrdered By: Jacob Tijerina on 09-19-2023 Thin prep Papanicolaou smear with manual screening 8 - [facility] MAILEon 06-22-2023 CNOV Office Visit (UCWSTR ) -------- LACHELLE LOCKE ([id number]) 1965 F Date Time Provider Department 06/22/23 3:[address] [facility] During your visit today, we recorded the following information about you: Temperature Pulse Respiration Blood pressure 98 degrees 86/minute 18/minute 126/74 Weight 57.3 kg Tash Concepcion APRN.FIXED INCOME ANALYST 06/22/2023 6:25 PM Signed Subjective The history is provided by the patient. No land inspector was used. HPI Lachelle Locke is a 57 year old female [...] have confirmed and edited as necessary, the [facility] Review of Systems Constitutional: Negative for [...] acute radiographic abnormality. Interpreted by : CHELSEY BRYANT MD 2. Wheezing - ICD9: 786.07, ICD10: [...] detail warranting prompt ER evaluation. Tash Concepcion APRN.FIXED INCOME ANALYST Allergies As of Date: 06/22/2023 (No Known Allergies) Date Reviewed: 06/22/2023 Reviewed by: Tash Concepcion APRN.FIXED INCOME ANALYST - Fully Assessed Reason for Visit: Cough [28] Cmt: Pt reported chest congestion, x1 wk. Primary Visit Diagnosis:Acute cough [R05.1] Other Visit Diagnosis:Wheezing [R06.2] Order(s):XR CHEST 2V FRONTAL/LAT [[id number]] Order #: [id number] FUTURE predniSONE (DELTASONE) 20 mg tabletTake 2 tablets by mouth once daily for 5 days.Disp: 10 tabletRfl: 0 Prescriptions as of 06/22/2023 - albuterol HFA (PROVENTIL HFA, VENTOLIN HFA) 90 mcg/actuation inhaler 2 PUFFS INHALED ORALLY EVERY 4 HOURS NEEDED (ANY BRAND OK) - amoxicillin (AMOXIL) 500 mg capsule take 1 capsule by mouth three times a day until gone - predniSONE (DELTASONE) 20 mg tablet Take 2 tablets by mouth once daily for (more content not included)... Normal [facility] XR CHEST 2V FRONTAL/LATon XR CHEST 2V FRONTAL/LAT * * *Final Repor t* * * DATE OF EXAM: Jun 22 2023 5:04PM WOX [id number] - XR CHEST 2V FRONTAL/LAT / PROCEDURE REASON: multiple diagnoses * * * * Physician Interpretation * * * * EXAMINATION: CHEST RADIOGRAPH (2 VIEW FRONTAL and LATERAL) CLINICAL HISTORY: Acute cough Wheezing MQ: XC2_6 EXAM DATE/TIME: 06/22/2023 5:04 PM COMPARISON: None available. RESULT: Lines, tubes, and devices: None. Lungs and pleura: No consolidation. No lung mass. No pleural effusion. No pneumothorax. Cardiomediastinal silhouette: The cardiomediastinal silhouette appears within normal limits. Calcifications are seen in the wall of the thoracic aortic arch. Bones and soft tissues: Visualized portions of the bony thorax appear intact. IMPRESSION: No acute radiographic abnormality. Csr Technician: CHASTITY Transcribe Date/Time: Jun 22 2023 5:06P Dictated by : CHELSEY BRYANT MD This examination was interpreted and the report reviewed and electronically signed by: CHELSEY BRYANT MD on Jun 22 2023 5:08PM EST [id number] Normal [facility] XR Chest PA and Lateralon IMPRESSION: No acute radiographic abnormality. Csr Technician: CHASTITY Transcribe Date/Time: Jun 22 2023 5:06P Dictated by : CHELSEY BRYANT MD This examination was interpreted and the report reviewed and electronically signed by: CHELSEY BRYANT MD on Jun 22 2023 5:08PM EST DIVISION OF RADIOLOGY * * *Final Report* * * DATE OF EXAM: Jun 22 2023 5:04PM WOX [id number] - XR CHEST 2V FRONTAL/LAT / PROCEDURE REASON: multiple diagnoses * * * * Physician Interpretation * * * * EXAMINATION: CHEST RADIOGRAPH (2 VIEW FRONTAL & LATERAL) CLINICAL HISTORY: Acute cough Wheezing MQ: XC2_6 EXAM DATE/TIME: 06/22/2023 5:04 PM COMPARISON: None available. RESULT: Lines, tubes, and devices: None. Lungs and pleura: No consolidation. No lung mass. No pleural effusion. No pneumothorax. Cardiomediastinal silhouette: The cardiomediastinal silhouette appears within normal limits. Calcifications are seen in the wall of the thoracic aortic arch. Bones and soft tissues: Visualized portions of the bony thorax appear intact. DIVISION OF RADIOLOGY Provider, [facility] Jamil Sparrow [facility] - 06/22/2023 * * *Final Report* * * DATE OF EXAM: Jun 22 2023 5:04PM WOX 5291 - XR CHEST 2V FRONTAL/LAT / PROCEDURE REASON: multiple diagnoses * * * * Physician Interpretation * * * * EXAMINATION: CHEST RADIOGRAPH (2 VIEW FRONTAL & LATERAL) CLINICAL HISTORY: Acute cough Wheezing MQ: [id number] EXAM DATE/TIME: 06/22/2023 5:04 PM COMPARISON: None available. RESULT: Lines, tubes, and devices: None. Lungs and pleura: No consolidation. No lung mass. No pleural effusion. No pneumothorax. Cardiomediastinal silhouette: The cardiomediastinal silhouette appears within normal limits. Calcifications are seen in the wall of the thoracic aortic arch. Bones and soft tissues: Visualized portions of the bony thorax appear intact. IMPRESSION IMPRESSION: No acute radiographic abnormality. Csr Technician: CHASTITY Transcribe Date/Time: Jun 22 2023 5:06P Dictated by : CHELSEY BRYANT MD This examination was interpreted and the report reviewed and electronically signed by: CHELSEY BRYANT MD on Jun 22 2023 5:08PM EST [facility] Radiology Study observation (narrative) [facility] XR Chest PA and LateralOrder ed By: Ccf Provider on 06-22-2023 [facility] Absolute lymphocyte countOrd ered By: Dr. Perez on 04-19-2023 Lymphocytes Auto (Unsp spec) [#/Vol] 1.92 10*3/uL 0.83-4.51 [facility] Basophil percentageOrdered B y: Dr. Perez on 04-19-2023 Basophils/100 WBC (Bld) 0.7 % 0-1 [facility] Eosinophils/100 WBC (Bld) 7.8 % 0-5 [facility] Neutrophils (Bld) [#/Vol] 4.2 10*3/uL 2.0-7.7 [facility] Neutrophils/100 WBC (Bld) 59.2 % 47-70 [facility] WBC (Bld) [#/Vol] 7.0 10*3/uL 4.4-11.0 [facility] Blood erythrocytes count (nu mber/volume)Ordered By: Dr. Perez on 04-19-2023 RBC (Bld) [#/Vol] 4.57 10*6/uL 4.2-5.4 [facility] Blood hemoglobin measurement (mass/volume)Ordered By: Dr. Perez on 04-19-2023 Hemoglobin (Bld) [Mass/Vol] 14.1 g/dL 12.0-15.0 [facility] Blood lymphocytes/100 leukoc ytesOrdered By: Dr. Perez on 04-19-2023 Lymphocytes/100 WBC (Bld) 27.4 % 19-41 [facility] Blood monocytes/100 leukocyt esOrdered By: [address]. Perez on 04-19-2023 Monocytes/100 WBC (Bld) 4.6 % 0-10 [facility] Blood platelet mean volumeOr dered By: Dr. Perez on 04-19-2023 Platelet mean volume (Bld) [Entitic vol] 10.7 fL 6.2-12.0 [facility] Determination of erythrocyte mean corpuscular volume (MCV)Ordered By: Dr. Perez on 04-19-2023 MCV (RBC) [Entitic vol] 93.9 fL 81-99 [facility] Hematocrit Auto (Bld) [Volum e fraction]Ordered By: Dr. Perez on 04-19-2023 Hematocrit (Bld) [Volume fraction] 42.9 % 37-47 [facility] Laboratory - Chemistry and C hemistry - challengeOrdered By: Dr. Perez on 04-19-2023 Cobalamin (Vitamin B12) [Mass/Vol] 373 pg/mL 211-911 [facility] Laboratory - Hematology and Cell countsOrdered By: Dr. Perez on 04-19-2023 Erythrocyte distribution width (RBC) [Entitic vol] 42.8 fL 35.1-43.9 [facility] Erythrocyte distribution width (RBC) [Ratio] 12.3 % 11.6-14.6 [facility] Immature granulocytes/100 WBC (Bld) 0.300 % 0.0-0.9 [facility] Comment on above: IG% - Immature Granu locytes (promyelocytes, myelocytes and metamyelocytes) > 1% indicates that a LEFT SHIFT is Present. MCH (RBC) [Entitic mass] 30.9 pg 27.0-32.0 [facility] Nucleated RBC/100 WBC (Bld) [Ratio] 0 % 0-5 [facility] MCHC Auto (RBC) [Mass/Vol]Or dered By: Dr. Perez on 04-19-2023 MCHC (RBC) [Mass/Vol] 32.9 g/dL 32-36 [facility] No Panel InformationOrdered By: Dr. Perez on 04-19-2023 Thyroid Stimulating Hormone (TSH) 1.11 uIU/mL 0.358-3.74 [facility] Platelets bldOrdered By: Dr. Perez on 04-19-2023 Platelets (Bld) [#/Vol] 221 10*3/uL 150-450 [facility] Serum or plasma ferritin shell surement (mass/volume)Ordered By: Dr. Perez on 04-19-2023 Ferritin [Mass/Vol] 57 ng/mL 8-252 [facility] Clinical Summary: HMSPatient IDon 12-23-2018 POP [facility] Work Phone: Clinical Summary: Scanned RO S Summaryon 12-23-2018 endocrine ROS Denies [facility] Work Phone: genitourinary review of systems, E&M Denies [facility] Work Phone: Lymphocytes #/vol (Bld) [facility] Work Phone: ROS cardiovascular E&M Denies Cr ystal [facility] Work Phone: ROS ENT E&M Denies [facility] Work Phone: ROS gastrointestinal E&M Denies [facility] Work Phone: ROS general E&M Denies [facility] Work Phone: ROS musculoskeletal E&M [facility] Work Phone: ROS neurological E&M Denies Soheila maurice [facility] Work Phone: ROS psychiatric E&M Denies Cryst al [facility] Work Phone: ROS pulmonary E&M Denies [facility] Work Phone: ROS skin E&M Denies [facility] Work Phone: Office Visit: New - 1st visi t with practice, Rm: 8on 12-23-2018 NEGATED: Highlighted rowProtein mass conc Done [facility] Work Phone: Clinical Lists Update: Prelo ad Extendedon 12-17-2018 Tobacco smoking status NHIS Tobacco smoking status MIIS [facility] Work Phone: Clinical Summary: Data Submi tted by Patient in Portalon 12-17-2018 #DEP CHLDRN No [facility] Work Phone: 3+ETOHDAILY less than 1 drink pe r day [facility] Work Phone: ASTHEHSZHOUS [address] [facility] Work Phone: BROTHERS PMH Alcoholism, Cancer Soheila [facility] Work Phone: DEATHCAU DAD lung cancer [facility] Work Phone: DEATHCAU MOM emphysema [facility] Work Phone: DEP ALG LIST I don't have any anel g allergies.,I don't have any food allergies.,Animals,Mold [facility] Work Phone: DEP CIG SMKG 1/2 pack a day [facility] Work Phone: DEP DAD PMH Cancer [facility] Work Phone: DEP DRUG USE No [facility] Work Phone: DEP EMPLOYER employed [facility] Work Phone: DEP ETOH USE Yes [facility] Work Phone: DEP EXERCISE Yes [facility] Work Phone: DEP EXERTYP walking, yoga [facility] Work Phone: DEP MOM PMH COPD [facility] Work Phone: DEP SH CSMO former smoker [facility] Work Phone: DEP SH FSMO [address] [facility] Work Phone: DEP SH MAST [facility] [place] [facility] Work Phone: DEP SH OCCUP mine laborer [facility] Work Phone: DEP SURGERY Foot surgery [facility] Work Phone: DEPEXER FREQ 3 days per week [facility] Work Phone: ETOHPERFRM beer, wine [facility] Work Phone: FATHER A/D [facility] Work Phone: HCG.beta subunit ( test) Ql (U) 1 time per year [facility] Work Phone: MOTHER A/D [facility] Work Phone: Protein mass conc I do not have any [facility] medical illnesses or conditions [facility] Work Phone: RLATNSHPINFR Self [facility] Work Phone: SISTER A/D My sister(s)' health history is unknown [facility] Work Phone: Sodium molar conc Omeprazole / Sodium Bicarbonate 20 mg;1680 mg Oral, 1 times per day,Ibuprofen / Pseudoephedrine 200 mg;30 mg Cap, 1 times per day,Calcium Carbonate / Vitamin D 500 mg;200 unt Tab, as_needed [facility] Work Phone: SWHOUTYPE house [facility] Work Phone: WEBSURGCOM esophagus stretched 07/11/2018 [facility] Work Phone: Office Visit: acute visit/ E st care visiton 10-04-2017 Documentation of current medications (procedure) Done Invalid Interpretation Code [facility] Work Phone: [phone] Fall risk assessment No Invalid Interpretation Code [facility] Work Phone: [phone] Tobacco use [facility] Former smoker Invalid Interpretation Code [facility] Work Phone: [phone] Office Visit: UC: chest cbamarilis beasley 03-26-2017 Documentation of current medications (procedure) Done Invalid Interpretation Code [facility] Work Phone: [phone] Fall risk assessment No Invalid Interpretation Code [facility] Work Phone: [phone] Tobacco use [facility] Never smoker Invalid Interpretation Code [facility] Work Phone: [phone] Culture, urine Bacteria identified Cx Nom (U) Mixed Gram Pos & Gram Neg Org [facility] Work Phone: Vital Signs Date Time Vital Sign Value Performing Clinician Facility 07-10-2025 15:54-0400 Body height 157.[address] Jessica Perez MD Work Phone: [facility] 07-10-2025 15:54-0400 Body mass index (BMI) [Ratio] 23.6 kg/m2 Dr. Jessica Perez MD Work Phone: [facility] 07-10-2025 15:54-0400 Body temperature 98.2 [degF] Dr. Jessica Perez MD Work Phone: [facility] 07-10-2025 15:54-0400 Body weight 58.[address] Jessica Perez MD Work Phone: [facility] 07-10-2025 15:54-0400 Diastolic blood pressure 78 mm[Hg] Dr. Jessica Perez MD Work Phone: [facility] 07-10-2025 15:54-0400 Heart rate 94 /min Dr. Jessica Perez MD Work Phone: [facility] 07-10-2025 15:54-0400 SaO2% (BldA) [Mass fraction] 96 % Dr. Jessica Perez MD Work Phone: [facility] 07-10-2025 15:54-0400 Systolic blood pressure 120 mm[Hg] Dr. Jessica Perez MD Work Phone: [facility] 02-05-2024 07:53-0400 Body height 157.[address] Jessica Perez Work Phone: [facility] 02-05-2024 07:53-0400 Body mass index (BMI) [Ratio] 23.8 kg/m2 Dr. Jessica Perez Work Phone: [facility] 02-05-2024 07:53-0400 Body temperature 97.5 [degF] Dr. Jessica Perez Work Phone: [facility] 02-05-2024 07:53-0400 Body weight 58.[address] Jessica Perez Work Phone: [facility] 02-05-2024 07:53-0400 Diastolic blood pressure 79 mm[Hg] Dr. Jessica Perez Work Phone: [facility] 02-05-2024 07:53-0400 Heart rate 81 /min Dr. Jessica Perez Work Phone: [facility] 02-05-2024 07:53-0400 Respiratory rate 18 /min Dr. Jessica Peerz Work Phone: [facility] 02-05-2024 07:53-0400 SaO2% (BldA) [Mass fraction] 97 % Dr. Jessica Perez Work Phone: [facility] 02-05-2024 07:53-0400 Systolic blood pressure 117 mm[Hg] Dr. Jessica Perez Work Phone: [facility] 12-19-2023 14:12-0500 Body mass index (BMI) [Ratio] 23.6 kg/m2 Dr. Jessica Perez Work Phone: [facility] 12-19-2023 14:12-0500 Body weight 58.[address] Jessica Perez Work Phone: [facility] 12-19-2023 14:12-0500 Diastolic blood pressure 83 mm[Hg] Dr. Jessica Perez Work Phone: [facility] 12-19-2023 14:12-0500 Heart rate 81 /min Dr. Jessica Perez Work Phone: [facility] 12-19-2023 14:12-0500 Respiratory rate 16 /min Dr. Jessica Perez Work Phone: [facility] 12-19-2023 14:12-0500 Systolic blood pressure 120 mm[Hg] Dr. Jessica Perez Work Phone: [facility] 11-07-2023 12:17-0500 Body temperature 98.8 [degF] Dr. Jessica Perez Work Phone: [facility] 11-07-2023 12:17-0500 Diastolic blood pressure 67 mm[Hg] Dr. Jessica Perez Work Phone: [facility] 11-07-2023 12:17-0500 Heart rate 80 /min Dr. Jessica Perez Work Phone: [facility] 11-07-2023 12:17-0500 Respiratory rate 16 /min Dr. Jessica Perez Work Phone: [facility] 11-07-2023 12:17-0500 SaO2% (BldA) [Mass fraction] 96 % Dr. Jessica Perez Work Phone: [facility] 11-07-2023 12:17-0500 Systolic blood pressure 98 mm[Hg] Dr. Jessica Perez Work Phone: [facility] 11-07-2023 10:10-0500 Body height 157.[address] Jessica Perez Work Phone: [facility] 11-07-2023 10:10-0500 Body mass index (BMI) [Ratio] 22.6 kg/m2 Dr. Jessica Perez Work Phone: [facility] 11-07-2023 10:10-0500 Body weight [address] Jessica Perez Work Phone: [facility] 11-05-2023 06:59-0500 Body mass index (BMI) [Ratio] 22.8 kg/m2 Dr. Jessica Perez Work Phone: [facility] 11-05-2023 06:59-0500 Body temperature 96.7 [degF] Dr. Jessica Perez Work Phone: [facility] 11-05-2023 06:59-0500 Body weight 56.[address] Jessica Perez Work Phone: [facility] 11-05-2023 06:59-0500 Diastolic blood pressure 81 mm[Hg] Dr. Jessica Perez Work Phone: [facility] 11-05-2023 06:59-0500 Heart rate 102 /min Dr. Jessica Perez Work Phone: [facility] 11-05-2023 06:59-0500 Respiratory rate 18 /min Dr. Jessica Perez Work Phone: [facility] 11-05-2023 06:59-0500 SaO2% (BldA) [Mass fraction] 99 % Dr. Jessica Perez Work Phone: [facility] 11-05-2023 06:59-0500 Systolic blood pressure 121 mm[Hg] Dr. Jessica Perez Work Phone: [facility] 10-09-2023 07:30-0500 Body height [address] Jessica Perez Work Phone: [facility] 10-09-2023 07:30-0500 Body weight 58.[address] Jessica Perez Work Phone: [facility] 10-08-2023 07:26-0500 Body mass index (BMI) [Ratio] 23.7 kg/m2 Dr. Jessica Perez Work Phone: [facility] 08-29-2023 08:50-0400 Body height 158.[address] Jessica Perez Work Phone: [facility] 08-29-2023 08:50-0400 Body mass index (BMI) [Ratio] 23.2 kg/m2 Dr. Jessica Perez Work Phone: [facility] 08-29-2023 08:50-0400 Body weight 58.[address] Jessica Perez Work Phone: [facility] 08-29-2023 08:50-0400 Diastolic blood pressure 86 mm[Hg] Dr. Jessica Perez Work Phone: [facility] 08-29-2023 08:50-0400 Heart rate 85 /min Dr. Jessica Perez Work Phone: [facility] 08-29-2023 08:50-0400 Respiratory rate 16 /min Dr. Jessica Perez Work Phone: [facility] 08-29-2023 08:50-0400 Systolic blood pressure 138 mm[Hg] Dr. Jessica Perez Work Phone: [facility] 07-24-2023 10:29-0400 Body mass index (BMI) [Ratio] 22.8 kg/m2 Dr. Jessica Perez Work Phone: [facility] 07-24-2023 10:29-0400 Body weight 57.[address] Jessica Perez Work Phone: [facility] 06-22-2023 16:04-0400 Body temperature 98.01 [degF] Tash Carlene METAL RIVETING MACHINE OPERATOR.FIXED INCOME ANALYST Work Phone: [facility] 06-22-2023 16:04-0400 Body weight 57.34 kg Tash Carlene METAL RIVETING MACHINE OPERATOR.FIXED INCOME ANALYST Work Phone: [facility] 06-22-2023 16:04-0400 Diastolic blood pressure 74 mm[Hg] Tash Carlene METAL RIVETING MACHINE OPERATOR.FIXED INCOME ANALYST Work Phone: [facility] 06-22-2023 16:04-0400 Heart rate 86 /min Tash Carlene METAL RIVETING MACHINE OPERATOR.FIXED INCOME ANALYST Work Phone: [facility] 06-22-2023 16:04-0400 Respiratory rate 18 /min Tash Carlene METAL RIVETING MACHINE OPERATOR.FIXED INCOME ANALYST Work Phone: [facility] 06-22-2023 16:04-0400 SaO2% (BldA) [Mass fraction] 98 % Tash Carlene METAL RIVETING MACHINE OPERATOR.FIXED INCOME ANALYST Work Phone: [facility] 06-22-2023 16:04-0400 Systolic blood pressure 126 mm[Hg] Tash Carlene METAL RIVETING MACHINE OPERATOR.FIXED INCOME ANALYST Work Phone: [facility] 03-27-2022 06:12-0400 Body temperature 97.5 [degF] Dr. Jessica Perez Work Phone: [facility] Work Phone: 03-27-2022 06:12-0400 Diastolic blood pressure 70 mm[Hg] Dr. Jessica Perez Work Phone: [facility] Work Phone: 03-27-2022 06:12-0400 Heart rate 59 /min Dr. Jessica Perez Work Phone: [facility] Work Phone: 03-27-2022 06:12-0400 Respiratory rate 14 /min Dr. Jessica Perez Work Phone: [facility] Work Phone: 03-27-2022 06:12-0400 SaO2% (BldA) [Mass fraction] 99 % Dr. Jessica Perez Work Phone: [facility] Work Phone: 03-27-2022 06:12-0400 Systolic blood pressure 118 mm[Hg] Dr. Jessica Perez Work Phone: [facility] Work Phone: 03-27-2022 06:12-0400 Body temperature 97.5 [degF] Dr. Jessica Perez Work Phone: [facility] Work Phone: 03-27-2022 06:12-0400 Diastolic blood pressure 70 mm[Hg] Dr. Jessica Perez Work Phone: [facility] Work Phone: 03-27-2022 06:12-0400 Heart rate 59 /min Dr. Jessica Perez Work Phone: [facility] Work Phone: 03-27-2022 06:12-0400 Respiratory rate 14 /min Dr. Jessica Perez Work Phone: [facility] Work Phone: 03-27-2022 06:12-0400 SaO2% (BldA) [Mass fraction] 99 % Dr. Jessica Perez Work Phone: [facility] Work Phone: 03-27-2022 06:12-0400 Systolic blood pressure 118 mm[Hg] Dr. Jessica Perez Work Phone: [facility] Work Phone: 10-04-2017 15:56-0500 BMI (Body Mass Index) 23.91 kg/m2 Orin Baltazar MD [facility] Work Phone: 10-04-2017 15:56-0500 Body Temperature 96 [degF] Orin Baltazar MD [facility] Work Phone: 10-04-2017 15:56-0500 BP Diastolic 86 mm[Hg] Orin Baltazar MD [facility] Work Phone: 10-04-2017 15:56-0500 BP Systolic 126 mm[Hg] Orin Baltazar MD [facility] Work Phone: 10-04-2017 15:56-0500 Height 160.02 cm Orin Baltazar MD [facility] Work Phone: 10-04-2017 15:56-0500 Pulse (Heart Rate) 82 /min Orin Baltazar MD [facility] Work Phone: 10-04-2017 15:56-0500 Respiratory Rate 16 /min Orin Baltazar MD [facility] Work Phone: 10-04-2017 15:56-0500 Weight 61.24 kg Orin Baltazar MD [facility] Work Phone: 03-26-2017 15:50-0400 BMI (Body Mass Index) 24.18 kg/m2 [facility] Work Phone: 03-26-2017 15:50-0400 Body Temperature 98.5 [degF] [facility]: 03-26-2017 15:50-0400 BP Diastolic 62 mm[Hg] [facility] Work Phone: 03-26-2017 15:50-0400 BP Systolic 118 mm[Hg] [facility] Work Phone: 03-26-2017 15:50-0400 Height 157.48 cm [facility] Work Phone: 03-26-2017 15:50-0400 Pulse (Heart Rate) 92 /min [facility] Work Phone: 03-26-2017 15:50-0400 Respiratory Rate 12 /min [facility] Work Phone: 03-26-2017 15:50-[address] [facility] Work Phone: NEGATED: Highlighted [id number] 07:50-0500 BMI (Body Mass Index) 23.48 kg/m2 Maggie Meyers RN [facility] Work Phone: NEGATED: Highlighted [id number] 07:50-0500 BP Diastolic 82 mm[Hg] Maggie Meyers RN [facility] Work Phone: NEGATED: Highlighted [id number] 07:50-0500 BP Systolic 137 mm[Hg] Maggie Meyers RN [facility] Work Phone: NEGATED: Highlighted [id number] 07:50-0500 Height 158.75 cm Maggie Meyers RN [facility] [place] [facility] Work Phone: NEGATED: Highlighted [id number] 07:50-0500 Height 159 cm Maggie Meyers RN [facility] Work Phone: NEGATED: Highlighted [id number] 07:50-0500 Pulse (Heart Rate) 92 /min Maggie Meyers RN [facility] Work Phone: NEGATED: Highlighted [id number] 07:50-0500 Weight 58.97 kg Maggie Meyers RN [facility] Work Phone: NEGATED: Highlighted [id number] 07:50-0500 Weight 59 kg Maggie Meyers RN [facility] Work Phone: Encounters Encounter Date Encounter Type Care Provider Facility Start: 08-18-2025 End: 08-18-2025 Emergency department patient visit EDI ROBERT DO [facility] Start: 07-10-2025 End: 07-10-2025 Patient encounter procedure Lio TAMEZ [facility] Work Phone: Start: 07-10-2025 End: 07-10-[address] Jessica Perez MD Work Phone: [facility] Start: 07-10-2025 End: 07-10-2025 ambulatory Lio TAMEZ Facility:[facility] Start: 02-11-2025 End: 02-11-2025 ambulatory Jessica Perez Facility:[facility] Start: 01-28-2025 ambulatory Jessica Perez Facility: [facility] Start: 01-20-2025 End: 01-20-2025 ambulatory Jessica Perez Facility:[facility] Start: 12-11-2024 End: 12-11-2024 ambulatory Isabel Greenfield Facility:[facility] Start: 10-02-2024 End: 10-02-2024 ambulatory Jessica Yates NP Facility:[facility] Start: 07-30-2024 End: 07-30-[facility] Start: 03-19-2024 End: 03-19-[address] Jessica Perez Work Phone: [facility] Work Phone: Start: 03-19-2024 End: 03-19-[address] Jessica Perez Work Phone: [facility] Work Phone: Start: 02-05-2024 End: 02-05-[address] Jessica Perez Work Phone: [facility] Work Phone: Start: 12-19-2023 End: 12-19-[address] Jessica Perez Work Phone: [facility] Work Phone: Start: 11-20-2023 End: 11-20-[address] Jessica Perez Work Phone: [facility] Work Phone: Start: 11-20-2023 End: 11-20-[address] Jessica Perez Work Phone: [facility] Work Phone: Start: 11-07-2023 Non-patient / Non-visit Dr. Joshua Perez Work Phone: [facility] Start: 11-07-2023 End: 11-07-2023 Admission to same day surgery center Dr. Jessica ePrez Work Phone: [facility] Work Phone: Start: 11-07-2023 End: 11-07-[address] Jessica Perez Work Phone: [facility] Work Phone: Start: 11-05-2023 End: 11-05-[address] Jessica Perez Work Phone: [facility] Work Phone: Start: 11-05-2023 End: 11-05-[address] Jessica Perez Work Phone: [facility] Work Phone: Start: 10-30-2023 End: 11-04-2023 ambulatory ISABEL GREENFIELD MD Facility:[facility] Start: 10-30-2023 End: 11-04-2023 Encounter for gynecological examination (general) (routine) without abnormal findings ISABEL GREENFIELD MD Facility:[facility] Start: 10-09-2023 End: 10-09-2023 Admission to same day surgery center Dr. Jessica Perez Work Phone: [facility]-Guard Supervisor/Special Procedures Work Phone: Start: 10-09-2023 End: 10-09-[address] Jessica Perez Work Phone: [facility] Work Phone: Start: 10-04-2023 Non-patient / Non-visit Dr. Joshua Perez Work Phone: [facility] Start: 09-20-2023 Non-patient / Non-visit Dr. Joshua Perez Work Phone: [facility] Work Phone: Start: 09-19-2023 Non-patient / Non-visit Dr. Joshua Perez Work Phone: [facility] Start: 09-19-2023 End: 09-19-[address] Jessica Perez Work Phone: [facility] Work Phone: Start: 09-19-2023 End: 09-19-[address] Jessica Perez Work Phone: [facility]Cardiovascula [facility] Services Work Phone: Start: 09-18-2023 Non-patient / Non-visit Dr. Joshua Perez Work Phone: [facility] Work Phone: Start: 09-17-2023 Non-patient / Non-visit Dr. Joshua Perez Work Phone: [facility] Work Phone: Start: 09-17-2023 End: 09-17-[address] Jessica Perez Work Phone: [facility] Work Phone: Start: 09-17-2023 End: 09-17-[address] Jessica Perez Work Phone: [facility]-Cat Scan, [facility] Work Phone: Start: 09-11-2023 Non-patient / Non-visit Dr. Joshua Perez Work Phone: [facility] Work Phone: Start: 09-11-2023 Non-patient / Non-visit Dr. Joshua Perez Work Phone: [facility] Start: 09-11-2023 End: 09-11-[address] Jessica Perez Work Phone: [facility] Work Phone: Start: 09-11-2023 End: 09-11-[address] Jessica Perez Work Phone: [facility] Work Phone: Start: 08-29-2023 End: 08-29-[address] Jessica Perez Work Phone: [facility] Work Phone: Start: 07-24-2023 Non-patient / Non-visit Dr. Joshua Perez Work Phone: [facility] Work Phone: Start: 06-22-2023 End: 06-22-2023 ambulatory [facility] Facility:[facility] Start: 06-22-2023 End: 06-22-2023 ambulatory [facility] Facility:[facility] Start: 06-22-2023 End: 06-22-2023 Subsequent hospital visit by physician [facility] Work Phone: Radiology Comment on above: Acute cough [R05.1] Start: 06-22-2023 End: 06-22-2023 Patient encounter procedure Tash Concepcion MARY Work Phone: [facility] Comment on above: Acute cough (Primary Dx); Wheezing Start: 04-19-2023 End: 04-19-2023 ambulatory [facility] Work Phone: Start: 04-19-2023 End: 04-19-2023 Patient encounter procedure [facility]-Laboratory, [facility] Start: 11-15-2022 End: 11-15-2022 ambulatory [facility] Work Phone: Start: 11-15-2022 End: 11-15-2022 Patient encounter procedure [facility]-Ultrasound, [facility] Start: 11-03-2022 End: 11-03-2022 ambulatory [facility] Work Phone: Start: 11-03-2022 End: 11-03-2022 Patient encounter procedure [facility]-Laboratory, Specimen Start: 06-15-2022 End: 06-15-[address] Jessica Perez Work Phone: [facility]-MRI - [facility] Start: 03-27-2022 End: 03-27-[address] Jessica Perez Work Phone: [facility] Start: 01-30-[address] Xochitl Perez Work Phone: [facility]-Physical Therapy Start: 12-29-2021 End: 12-29-[address] Jessica Perez Work Phone: [facility]-Radiology, [facility] Start: 12-28-2021 End: 12-28-[address] Jessica Perez Work Phone: [facility]-Massage Therapy, [facility] Start: 12-15-2021 Non-patient / Non-visit Dr. Joshua Perez Work Phone: [facility] Start: 12-14-2021 End: 12-14-[address] Jessica Perez Work Phone: [facility]-Pulmonary Services/Neurology Start: 12-23-2018 End: 12-23-2018 Patient encounter procedure Eamon Blackwell MD Work Phone: [facility] [place] [facility] Work Phone: Procedures Date Procedure Procedure Detail Performing Clinician Start: 07-10-2025 X-ray of chest, PA and lateral views Dr. Jessica Perez MD Work Phone: Start: 03-19-2024 CT of chest without contrast Dr. Jessica Perez Work Phone: Start: 11-07-[address] Jessica Perez Work Phone: Start: 09-17-2023 CT of chest without contrast Dr. Jessica Perez Work Phone: Start: 06-22-2023 Radiologic exam chest 2 views Tash Carlene HERNANDEZ Work Phone: Start: 11-15-2022 Screening mammography Start: 11-15-2022 Transvaginal echography Start: 11-15-2022 Pelvic echography Start: 06-15-2022 MRI of lumbar spine Dr. Jessica Perez Work Phone: Start: 12-29-2021 X-ray of lumbosacral spine Dr. Jessica Perez Work Phone: Start: 12-23-2018 End: 12-23-2018 Blood pressure within [...] non-user Eamon Blackwell MD Work Phone: Start: 11-19-2018 Malignant neoplasm of skin (disorder) EDI ROBERT DO Start: 01-01-2017 Mammography Tash Concepcion APRN.FIXED INCOME ANALYST Work Phone: Start: 03-02-2014 Colonoscopy Tash Concepcion APRN.FIXED INCOME ANALYST Work Phone: Start: 11-19-2013 Excision of bunion EDI ROBERT DO Start: 04-24-2013 Lipid 1996 panel - Serum or Plasma [facility] [place] Work Phone: Start: 06-06-2011 Laboratory test result abnormal Abnormal laboratory test Tash Concepcion APRN.FIXED INCOME ANALYST Work Phone: Biopsy EDI ROBERT DO Urine culture Plan of Treatment Date Care Activity Detail Author Start: 07-10-2025 X-ray of chest, PA and lateral views Chest PA and Lateral [facility] Start: 07-10-2025 XR Chest PA and Lateral [facility] Start: 07-20-2024 Covid-19 Vaccine ( season) Covid-19 Vaccine ( season) [facility] Start: 07-20-2024 Influenza vaccination Influenza Vaccine (#1) [facility] Start: 03-02-2024 Colonoscopy COLONOSCOPY [facility] Start: 03-02-2024 COLORECTAL CANCER SCREENING COLORECTAL CANCER SCREENING [facility] Start: 03-02-2024 Screening for malignant neoplasm of colon [facility] Start: 02-05-2024 Patient referral [facility] Work Phone: Start: 11-20-2023 MG Breast - bilateral Screening [facility] Start: 11-20-2023 Screening mammography SCRN MAMM (CAD)W/ONI BILAT [facility] Start: 11-07-2023 Colonoscopy w/biopsy single/multiple COLONOSCOPY AND BIOPSY [facility] Start: 11-07-2023 Patient discharge [facility] Start: 11-05-2023 IgE [Units/volume] in Serum or Plasma [facility] Start: 11-05-2023 [facility] Start: 2023 RSV Vaccine (1 - 1-dose 60+ series) RSV Vaccine (1 - 1-dose 60+ series) [facility] Start: 10-12-2023 Electrocardiographic procedure [facility] Start: 10-11-2023 Electrocardiographic procedure [facility] Start: 10-10-2023 End: 10-10-2023 Electrocardiographic procedure [facility] Start: 10-09-2023 Electrocardiographic procedure [facility] Start: 10-09-2023 Ambulation without limitation [facility] Start: 10-09-2023 Pulse taking [facility] Start: 10-09-2023 Cardiac monitoring [facility] Start: 10-09-2023 Cardiac rehabilitation - phase 1 [facility] Start: 10-09-2023 Cardiac rehabilitation - phase 2 [facility] Start: 10-09-2023 Notification of physician [facility] Start: 10-09-2023 Oxygen therapy [facility] Start: 10-09-2023 Patient discharge [facility] Start: 10-09-2023 Taking patient vital signs [facility] Start: 10-09-2023 Vascular disease risk assessment [facility] Start: 10-09-2023 Vital signs measurements [facility] Start: 10-09-2023 End: 10-09-2023 [facility] Start: 10-09-2023 Patient discharge [facility] Start: 08-29-2023 Patient referral [facility] Work Phone: Start: 07-20-2023 Influenza vaccination INFLUENZA (#1) [facility] Start: 11-19-2022 DEPRESSION ASSESSMENT DEPRESSION ASSESSMENT [facility] Start: 04-04-2020 DIABETES SCREEN DIABETES SCREEN [facility] Start: 04-04-2020 Diabetes Screening Diabetes Screening [facility] Start: 12-23-2018 End: 12-23-[address] [facility] Work Phone: Start: 04-24-2018 Lipid panel Lipid Screening [facility] Start: 04-24-2018 LIPID SCREEN LIPID SCREEN [facility] Start: 01-01-2018 Mammography MAMMOGRAM [facility] Start: 01-01-2018 Screening for malignant neoplasm of breast Mammogram Screening [facility] Start: 11-21-2017 HPV TESTING HPV TESTING [facility] Start: 11-21-2017 PAP TESTING PAP TESTING [facility] Start: 11-21-2017 Screening for malignant neoplasm of cervix Cervical Cancer Screening [facility] Start: 10-04-2017 End: 10-04-2017 Appointment Appointment [facility] Work Phone: Start: 10-04-2017 End: 10-04-2017 Follow-up visit Follow Up as needed [facility] Work Phone: Start: 2013 SHINGRIX VACCINE (1 of 2) SHINGRIX VACCINE (1 of 2) [facility] Start: 2008 COLOGUARD (FIT-DNA) COLOGUARD (FIT-DNA) [facility] Start: [address] COLONOGRAPHY [facility] Start: 2008 FECAL OCCULT BLOOD FECAL OCCULT BLOOD [facility] Start: 2008 Screening for malignant neoplasm of colon [facility] Start: 2008 SIGMOIDOSCOPY SIGMOIDOSCOPY [facility] Start: 07-13-2006 [facility] Start: 1981 Anxiety Screening Anxiety Screening [facility] Start: 1981 Depression Screening Depression Screening [facility] Start: 1981 HIV SCREENING HIV SCREENING [facility] Start: 1981 HIV screening HIV Screening [facility] Start: 04-25-1964 COVID-19 VACCINE (#1) COVID-19 VACCINE (#1) [facility] Alternaria alternata IgE Ab [Units/volume] in Serum [facility] Albanian Cockroach I gE Ab [Units/volume] in Serum [facility] Albanian house dust mite IgE Ab [Units/volume] in Serum [facility] Aspergillus fumigatus RAST [facility] Bermuda grass IgE Ab [Units/volume] in Serum [facility] Blood chemistry [facility] Box elder RAST [facility] Cat dander RAST [facility] Cladosporium herbaru m IgE Ab [Units/volume] in Serum [facility] Colonoscopy [facility] Common Ragweed IgE A b [Units/volume] in Serum [facility] Bethany RAST [facility] CT Chest WO contrast [facility] Dog epithelium IgE A b [Units/volume] in Serum [facility] house dust mite IgE Ab [Units/volume] in Serum [facility] Immunoglobulin E measurement [facility] Lipid 1996 panel - S camron or Plasma [facility] Magnesium [Mass/volu me] in Serum or Plasma [facility] Measurement of Asper gillus flavus antibody [facility] Measurement of Asper gillus fumigatus antibody [facility] Measurement of Asper gillus niger antibody [facility] Mouse urine proteins RAST [facility] Neutrophil cytoplasm ic Ab.classic [Units/volume] in Serum [facility] P-ANCA measurement [facility] Patient Education ACUTE%20COUGH, ACUTE%20COUGH [facility] Work Phone: Patient referral [facility] Work Phone: Pecan or [place] Nut IgE Ab [Units/volume] in Serum [facility] Rough Pigweed IgE Ab [Units/volume] in Serum [facility] Sheep [place] IgE Ab [Units/volume] in Serum [facility] Silver Birch IgE Ab [Units/volume] in Serum [facility] Stress echocardiography [facility] Quiana IgE Ab [Unit s/volume] in Serum [facility] Tree pollen RAST [facility] [place] RAST [facility] White Raj IgE Ab [Units/volume] in Serum [facility] White Elm IgE Ab [Units/volume] in Serum [facility] White mulberry IgE A b [Units/volume] in Serum [facility] Immunizations Immunization Date Immunization Notes Care Provider Augustin walter 11-28-2021 influenza virus vaccine, unspecified formulation [facility] [place] Work Phone: [facility] 08-19-[address] Jessica Perez Work Phone: [facility] 08-19-2014 influenza, seasonal, injectable Tashhector Craigrahat GARCIA.FIXED INCOME ANALYST Work Phone: [facility] Work Phone: 07-12-2006 tetanus and diphther ia toxoids, adsorbed, preservative free, for adult use (2 Lf of tetanus toxoid and 2 Lf of diphtheria toxoid) Tashhector Craigrahat GARCIA.FIXED INCOME ANALYST Work Phone: [facility] No information available. Maggie Meyers RN [facility] [place] [facility] Work Phone: Payers Date Payer Category Payer Self-pay [id number] 2023 Unknown [id number] 2021 Unknown LISA LEDEZMA [employer]sha PPO [id number] 2021-Present [phone] [address] [place] [address] PPO [id number] 2021 Private Health Insurance [id number] 2006 Unknown [id number] 1963 Unknown [id number] Unknown [id number] Unknown [id number] Unknown [id number] Unknown [id number] Unknown [id number] Unknown [id number] Unknown [id number] Unknown [id number] Unknown [id number] Social History Date Type Detail Facility Start: 03-27-2022 End: 11-05-2023 Assertion Unknown if ever smoked [facility] [employer] [facility] Work Phone: Start: 1965 Sex Assigned At Female [facility] Start: 10-20-2020 End: 06-22-2023 Tobacco smoking status NHIS Ex-smoker [facility] History of tobacco use Current smoker [facility] History of tobacco use Cigarette Smoker [facility] Start: 06-22-2023 Cigarettes smoked current (pack per day) - Reported 1 [facility] Start: 06-22-2023 Tobacco use and exposure Smoke less tobacco non-user [facility] Start: 06-22-2023 Alcohol intake 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 (finding) [facility] Start: 06-22-2023 Tobacco use panel [facility] Start: 06-22-2023 Tobacco Comment quit [address] [place] [address] Start: 1965 Sex Assigned At Not on file [facility] Sexual Orientation Mitali miner [facility] Start: 01-09-2019 Sex Female (finding) [facility] Goals Date Patient Goal Desired Activity /State Mental Status Date Assessment Result Facility 11-07-2023 Cognitive function Voice/Name [facility] Work Phone: Clinical Notes 06-22-2023 to 08-18-2025 RadiologyDeidra Matamoros, RT(R) - 06/22/2023 4:50 PM EDTFTash kamara APRN.FIXED INCOME ANALYST - 06/22/2023 4:43 PM EDT Note Date & Type Note Facility 08-18-2025 Hospital Discharge instructions Patient Education 08/18/2025 06:47:34 Arthralgia Arthralgia Arthralgia is the term for pain in or around the joint. It is a symptom, not a disease. This pain may involve one or more joints. In some cases, the pain moves from joint to joint. There are many causes for joint pain. These include: Injury Osteoarthritis (wearing out of the joint surface) Gout (inflammation of the joint due to crystals in the joint fluid) Infection inside the joint Bursitis (inflammation of the fluid-filled sacs around the joint) Autoimmune disorders such as rheumatoid arthritis or lupus Tendonitis (inflammation of chords that attach muscle to bone) Home care Rest the involved joint(s) until your symptoms improve. You may be prescribed pain medicine. If none is prescribed, you may use acetaminophen or ibuprofen to control pain and inflammation. Follow-up care Follow up with your healthcare provider or as advised. When to seek medical advice Contact your healthcare provider right away if any of the following occurs: Pain, swelling, or redness of joint increases Pain worsens or recurs after a period of improvement Pain moves to other joints You cannot bear weight on the affected joint You cannot move the affected joint Joint appears deformed New rash appears Fever of 100.4 F (38 C) or higher, or as directed by your healthcare provider [id number] [employer]. [address] [place] [address]. All rights reserved. This information is not intended as a substitute for professional medical care. Always follow your healthcare professional's instructions. Follow Up Care 08/18/2025 04:28:49 With:Go to emergency room if symptoms worsen Address:Unknown When:2-4 days With:JESSICA PEREZ Address: [address] [place] [phone] When:2-4 days [facility] 08-18-2025 Emergency department Discharge summary Discharge Instructions Thank you for allowing [facility] to assist you with your healthcare needs. The following is important discharge information regarding your hospital visit. Diagnosis from Today's Visit Arthralgia Joint ache What to Do Next Instructions from Your Care Team You are prescribed steroids to provide additional anti-inflammatory relief. Can continue to take Motrin or Tylenol [id number] as needed. Get plenty of fluids and rest. Follow-up with your primary care provider within 1 week for repeat assessment to ensure symptoms are improving as you may require further outpatient evaluation. Return to the ED for any acute worsening symptoms or concerns. Discharge Return to Work, School, or Sports (Return to Work, School, or Sports) - Ordered -- 08/19/25, May return to: work, 08/18/25 6:48:00 EDT Post Acute Orders No qualifying data available. You Need to Schedule the Following Appointments Follow Up with Go to emergency room if symptoms worsen When:Within 2-4 days Follow Up with JESSICA PEREZ When:Within 2-4 days Where:[address] [place] [address]- [phone] Allergies NKA Medications Please ask your primary doctor or pharmacist before taking any other medication not listed, including over the counter drugs, herbal medications, vitamins and or supplements as they may interact with your home medications. What How Much When Why Instructions Last Dose New predniSONE (prednisone 10mg tab (TAPER)) Taper 40-20-10 mg x 2 days each dose by mouth Every day Duration: 6 Days Printed Prescription Unchanged albuterol (Albuterol (Eqv-ProAir HFA) 90 mcg/ inh inhalation aerosol) 2 PUFFS INHALED ORALLY EVERY 4 HOURS NEEDED (ANY BRAND OK) Unchanged aspirin (Aspirin Low Dose 81 mg oral tablet, chewable) 1 tab(s) Chewed Once a day 2 times/ week Unchanged cholecalciferol (Vitamin D3 10 mcg/ mL (400 intl units/ mL) oral liquid) 1 Milliliter by mouth Once a day Unchanged clobetasol topical (Clobetasol (Eqv-Temovate) 0.05% topical cream) APPLY THIN LAYER TO AFFECTED AREAS FOREARMS 2X/ DAY UP 2WKS THEN HOLD STEFFANY X1WK BEFORE REPEAT NEED Unchanged fluticasone (fluticasone 110 mcg/ inh inhalation aerosol) TAKE 2 PUFFS BY MOUTH TWICE A DAY Unchanged PARoxetine (Paxil 10 mg oral tablet) 1 tab(s) by mouth Once a day Irritability Please take this list to your next doctor s visit. Bring all medications you take, including over the counter medications, herbals and other supplements with you to your doctor s visit. Patients and families are reminded to discard old lists and to update any records with all medication providers or retail pharmacies. Education Materials Arthralgia Arthralgia is the term for pain in or around the joint. It is a symptom, not a disease. This pain may involve one or more joints. In some cases, the pain moves from joint to joint. There are many causes for joint pain. These include: Injury Osteoarthritis (wearing out of the joint surface) Gout (inflammation of the joint due to crystals in the joint fluid) Infection inside the joint Bursitis (inflammation of the fluid-filled sacs around the joint) Autoimmune disorders such as rheumatoid arthritis or lupus Tendonitis (inflammation of chords that attach muscle to bone) Home care Rest the involved joint(s) until your symptoms improve. You may be prescribed pain medicine. If none is prescribed, you may use acetaminophen or ibuprofen to control pain and inflammation. Follow-up care Follow up with your healthcare provider or as advised. When to seek medical advice Contact your healthcare provider right away if any of the following occurs: Pain, swelling, or redness of joint increases Pain worsens or recurs after a period of improvement Pain moves to other joints You cannot bear weight on the affected joint You cannot move the affected joint Joint appears deformed New rash appears Fever of 100.4 F (38 C) or higher, or as directed by your healthcare provider [phone] [employer]. [address] [place] [address], [place] [address]. All rights reserved. This information is not intended as a substitute for professional medical care. Always follow your healthcare professional's instructions. Additional Information VACCINATE! IT SAVES LIVES! Members of the community who have not yet received the COVID-19 vaccine and would like to receive it can visit one of [facility] vaccine clinics. There are many vaccine clinic locations within the [facility]. For locations and available times, please visit [email or web address] It is important to note that some COVID mobile vaccine clinics are held outdoors and may be canceled in rainy or stormy conditions. To learn more about pediatric vaccinations (ages 5-11), we invite you to visit the [facility] webpage. [email or web address] To learn more about the COVID-19 vaccine, we invite you to visit the CDC website for a list of frequently asked questions. https://www.cdc.gov/coronavirus/2 019-ncov/vaccines/faq.html [facility] Patient [facility] Access Instructions: Stay connected with your healthcare team and access your personal medical information anytime with the [facility] Patient Portal. If you would like a full copy of your medical records please contact the [facility] Medical Records Department Sunday through Sunday between 8a.m. and 4:30p.m. Please follow the directions below to access the portal: 1.Access the email account you provided upon registration to the [facility].2.Look for an invitation email from [facility].3.Open the email and access the invitation link: Accept Invitation to [facility]4.Fill in the required plunkett to create your account. To access your account, visit [employer] or scan the [facility] [employer] code above. Click the blue button labeled Access Patient Portal and then log in with the username and password that you created in the steps above. You can then view a summary of results, a summary of your visits, and the ability to download your summaries to your computer or send the information securely to a physician. Remember that your healthcare information is confidential, so carefully consider who you will allow to register on the [facility] Patient Portal for access to your information. You can also access the [facility] Patient Portal on the [employer]. Simply click on Health Records under Health Data and then click on the [employer] logo. HOW TO SAFELY DISPOSE OF PRESCRIPTION MEDICATIONS Please use one of the following methods to safely dispose of your unused medications. 1.Use a drug disposal kit: the drug disposal pouch allows you to safely discard your old and unused drugs. Ask your nurse to give you one when you are discharged.2.Visit a local take-back location: Many local pharmacies and police departments have programs that collect old and unwanted prescription drugs. Call your local pharmacy or go to http://bit.ly/8B2Dq8p to find one close to you.3.Make use of household items: Use cat litter or old coffee grounds to dispose medications if other options are not available. Mix your drugs with these household products, seal them in an airtight container and throw it into the garbage. Call [facility]: [phone] to be sure your drugs can be disposed of in this way. Some medicines may require a different approach.4.Never flush your medications down the toilet. IF YOU HAVE BEEN PRESCRIBED AN OPIOIDS FOR PAIN If you have been prescribed an opioid (such as hydrocodone, oxycodone or morphine), it is critical to understand the possible side effects and risks of opioid pain medications. Even when taken as directed, opioids can have several side effects including: Tolerance, meaning you might need to take more of a medication for the same pain relief. Nausea, vomiting and/or constipation. Sleepiness, dizziness, dry mouth, confusion, depression or itching. Physical dependence, meaning you have withdrawal symptoms when a medication is stopped ? this can develop within a few days. KNOW YOUR RESPONSIBILITIES It is important to know exactly how much and how often to take the opioid pain medications you are prescribed. Never take opioids in higher amounts or more often than prescribed. Do not combine opioids with alcohol or other drugs that cause drowsiness, such as benzodiazepines, also known as benzos, including diazepam and alprazolam, muscle relaxants or sleep aids. Never sell or share prescription opioids. This is illegal. Store opioids in a secure place and out of reach of others (including children, family, friends and visitors). The last page(s) of this document has been signed and retained as a CHART COPY Signatures Patient Education Materials Arthralgia Medication Leaflets My discharge plan and instructions have been reviewed and explained to me and IBAIRON MARILYN J understand my current condition and have read and understand these discharge instructions. I have received a written copy of the plan/instructions. If I have questions, I am aware that I should contact my doctor. Patient/Branch Sales Manager Signature: Date/Time: Relationship to Patient: ____ Witness Name/Signature: Date/Time: [facility] 07-10-2025 Radiology Diagnostic study note [facility] Imaging Services [address] [place] [address] Chest PA and Lateral MR#: [id number] Acct: [id number] Name: LACHELLE LOCKE Rep #: [id number] : 1965 F 59 From: Devante Hatch MD PCP: Dr. Jessica Perez MD Status: REG CLI Study:Chest PA and Lateral Date of Exam: 07/10/25 Exam# [id number] Ordering Dr: St chidi Cardenas PA PA PROCEDURE: CHEST PA AND LATERAL 07/10/2025 REASON FOR EXAM: COUGH TECHNIQUE: CHEST PA AND LATERAL COMPARISON: CT chest 10/02/2024 FINDINGS: Hardware: None. Heart: The heart size is normal. Mediastinum: The mediastinal contour is unremarkable. Lungs: The lungs are clear. Bones: The bones are unremarkable. RAD/Chest PA and Lateral IMPRESSION: NO ACUTE FINDINGS. Reading Location: [facility] CC: Dr. Jessica Perez MD; DASHAWN Chambers ~ Csr Technician: Signed [facility] 11-05-2024 Evaluation + Plan note Future Scheduled TestsMA Mammo Screening Bilateral w/ Oni 11/05/24 [facility] 11-07-2023 Procedure note [facility] 11-07-2023 Procedure note [facility] 06-22-2023 Note HNO ID: [id number] Author: Deidra Matamoros RT(R) Service: Radiology Author Type: Technologist Type: Progress Notes Filed: 06/22/2023 5:04 PM Note Text: Radiology Service Progress Note PATIENT NAME: Lachelle Locke DATE OF SERVICE: June 22, 2023 [...] PERIPHERAL IV DATA: Not applicable SIGNED BY: RT Librado(R) June 22, 2023 4:57 PM [facility] 06-22-2023 Note HNO ID: [id number] Author: Tash Concepcion APRN.FIXED INCOME ANALYST Service: ? Author Type: Nurse Practitioner Type: Progress Notes Filed: 06/22/2023 6:25 PM Note Text: Subjective The history is provided by the patient. No land inspector was used. SHANTANU Locke is a 57 year old female [...] have confirmed and edited as necessary, the [facility] Review of Systems Constitutional: Negative for [...] acute radiographic abnormality. Interpreted by : CHELSEY BRYANT MD 2. Wheezing - ICD9: 786.07, ICD10: [...] Tash Concepcion APRN.[facility] 06-22-2023 History of Present illness Narrative Radiology Service Progress Note PATIENT NAME: Lachelle Locke DATE OF SERVICE: June 22, 2023 [...] PERIPHERAL IV DATA: Not applicable SIGNED BY: RT Librado(R) June 22, 2023 4:57 PM documented in this encounter [facility] 06-22-2023 History of Present illness Narrative Subjective The history is provided by the patient. No land inspector was used. HPI Lachelle Locke is a 57 year old female [...] have confirmed and edited as necessary, the [facility] Review of Systems Constitutional: Negative for [...] acute radiographic abnormality. Interpreted by : CHELSEY BRYANT MD 2. Wheezing - ICD9: 786.07, ICD10: [...] detail warranting prompt ER evaluation. Tash Concepcion APRN.CNP documented in this encounter [facility] Evaluation note Diagnosis Onset Date Blepharitis of right upper eyelid acute [facility] Work Phone: Evaluation noteNo assessment information available [facility] Work Phone: Evaluation note* Diagnosis Acute cough- Primary Wheezing [facility] Diagnosis Onset Date Resolution Status CAD (coronary artery disease) chronic Chest tightness chronic Hypertension chronic Palpitations chronic [facility] Work Phone: Evaluation note* Diagnosis Onset Date Resolution Status CAD (coronary artery disease) chronic Chest tightness chronic Hypertension chronic Palpitations chronic Lung nodule acute Asthma chronic Encounter for screening colonoscopy acute [facility] Work Phone: Evaluation note* Diagnosis Onset Date Resolution Status CAD (coronary artery disease) chronic Chest tightness chronic Dyslipidemia chronic Hypertension chronic Asthma chronic [facility] Work Phone: Evaluation note* Diagnosis Acute cough Wheezing [facility] Author Marco Friend [facility] November 07, 2023 10:58am Note Date/Time November 07, 2023 10:58am [facility] System Medical Records Department [address] [place] [id number] History & Physical Exam 11/07/23 1054 MR#: [id number] Acct: [id number] Name: LACHELLE LOCKE Rep #:[id number] : 1965 58 From: Marco Boston DO PCP: Dr. Jessica Perez MD Status:[facility] Location: [place] [address] HPI - General General Date of Admission: 11/07/23 Date of Service: 11/07/23 HPI Narrative LACHELLE LOCKE, is a 58 F who presents today for screening colonoscopy. She does not have any abdominal pain. She denies any cramping. She denies any chest pain or shortness of breath. Overall she is in fairly good health. [facility] Medical History (Updated 11/07/23 @ 10:[address] Lara Friend, DO) Blepharitis of right upper eyelid CAD (coronary artery disease) Cancer Cardiology follow-up encounter Chest pain Chronic back pain COVID-19 Daytime somnolence Encounter for screening for malignant neoplasm of colon Excessive bleeding Exposure to COVID-19 virus Former smoker GERD (gastroesophageal reflux disease) History of echocardiogram History of edema History of stress test Melanoma Menopausal and postmenopausal disorder Mild sleep apnea PLMD (periodic limb movement disorder) Post-menopausal Seasonal allergies Shortness of breath on exertion Snoring Uterine fibroid Wears glasses Home Medications albuterol sulfate 90 mcg/actuation aerosol inhaler 2 puff inhalation Q4H PRN shortness of breath or wheezing 08/26/23 [History Last Taken Unknown] aspirin 81 mg tablet,delayed release 81 mg PO DAILY 08/26/23 [History Last Taken 11/06/23] cholecalciferol (vitamin D3) 50 mcg (2,000 unit) capsule 50 mcg PO DAILY 08/29/23 [History Last Taken 11/06/23] amlodipine 2.5 mg tablet 2.5 mg PO DAILY #30 tabs 09/21/23 [Rx Last Taken 11/06/23] metoprolol tartrate 25 mg tablet 25 mg PO BID #60 tabs 09/21/23 [Rx Last Taken 11/06/23] budesonide-formoterol HFA 160 mcg-4.5 mcg/actuation aerosol inhaler (Symbicort) 2 puff inhalation BID #10.2 grams 11/05/23 [Rx Last Taken 11/07/23] furosemide 40 mg tablet (Lasix) 40 mg PO DAILY PRN edema #90 tabs 11/06/23 [Rx Last Taken Unknown] Allergy/AdvReac Type Severity Reaction Status Date / Time No Known Allergies Allergy Verified 11/07/23 10:08 Family History Mother COPD (chronic obstructive pulmonary disease) Emphysema lung Father Lung cancer Brother Pancreatic cancer Surgical History H/O right breast biopsy History of cardiac catheterization History of endometrial ablation History of esophagogastroduodenoscopy (EGD) History of left heart catheterization (11/04/20) Hx of colonoscopy S/P bunionectomy Status post dilatation of esophageal stricture Social History household members: spouse [facility] current occupational status: employed current occupation: [employer] pets and animals: No Smoking Status: Former smoker quit date: 11/19/96 pack-years: 10 second hand exposure: No alcohol intake: current alcohol intake frequency: a few times a month Alcohol type: beer and wine substance use type: does not use caffeine: Yes Type: coffee Number of servings: 1 what type of physical activity do you participate in: walking and yoga frequency: 3-4 times per week ROS Review of Systems ROS Unobtainable: other Constitutional Constitutional: Denies fatigue, fever(s), poor appetite, weight gain or weight loss ENT HEENT: Denies mouth lesions Cardiovascular Cardiovascular: Denies abdominal bloating, abdominal edema or abdominal pain Respiratory/Chest Respiratory/Chest: Denies change in mental status, change in phlegm color, chestcongestion or chest tightness Gastrointestinal Gastrointestinal: Denies belching, bloating, change in bowel habits, change in stool character, chewing difficulty, coffee ground emesis, constipation, cramping, diarrhea, dyspepsia, dysphagia, early satiety, excessive flatus, fecalincontinence, heartburn, hematemesis, hematochezia, hemorrhoids, loose stools, melena, nausea, odynophagia, rectal bleeding, tenesmus, vomiting or weight changes Genitourinary Genitourinary: Denies abdominal discomfort, burning urination or itching Musculoskeletal Musculoskeletal: Reports as per HPI; Denies muscle weakness or myalgias Integumentary Integumentary: Denies jaundice Neurologic Neurologic: Denies lack of coordination or weakness Psychiatric Psychiatric: Denies confusion, depression, memory loss, mood swings, paranoia orsuicidal ideation Endocrine Endocrinology: Denies systems reviewed and no addt'l complaints, except as documented Hematologic/Lymphatic Hematologic/Lymphatic: Denies anemia, easy bleeding, easy bruising or lymphadenopathy Allergic/Immunologic Allergic/Immunologic: Denies systems reviewed and no addt'l complaints, except as documented Vital Signs Vital Signs Vital Signs: 11/07/23 10:10 11/07/23 10:10 Temperature 97.2 F L Temperature Source Temporal Pulse Rate 103 H Respiratory Rate 17 Respiratory Pattern Normal Blood Pressure 113/78 Blood Pressure Mean 89 Blood Pressure Source Monitor Blood Pressure Position Semi-Fowlers Blood Pressure Location Left Arm Pulse Ox 97 Oxygen Delivery Method Room Air Weight Weight: 123 lb 7.342 oz Body Mass Index (BMI) 22.6 Physical Exam Const alert General Appearance: cooperative Orientation / Consciousness: oriented to person HEENT hearing grossly normal bilaterally Head and Scalp: normal to inspection Face and Sinus: face symmetric Nose: external nose normal Mouth: oral and palatal mucosa normal Eyes conjunctivae normal General Eye: normal appearance of both eyes Neck full ROM General: normal visual inspection Lymph Lymphatic: no lymphadenopathy noted Chest inspection of chest normal and palpation of chest normal Chest: symmetrical chest wall rise Resp normal respiratory effort Effort and Inspection: able to speak in complete sentences Cardio regular rate GI non-distended Percussion: normal to percussion Rectal Exam: deferred Neuro Speech: speech normal Gait (Neuro): normal gait Assessment & Plan Assessment/Plan (1) Encounter for screening colonoscopy: PLAN: She was explained alternatives, risk, benefits include not withstanding bleeding, infection, sepsis, perforation, need for emergent urgent . She will have an ASA of 3. 11/07/23 1058 <Electronically signed by Marco Boston DO> Cosigner Signature (if applicable): CC: Dr. Jessica Perez MD; Marco Boston DO~ Signed [facility] Work Phone: Hospital course Narrative No data available for this section [facility] Reason for referral (narrative)No reason for referral [facility] Work Phone: Chief Complaint Chief Complaint Description Start Date right leg Preliminary chief co mplaint data, not yet signed by the author as of Instructions Instruction Description Start Date Completed Advance Directives Advance Directive Response Recorded Date/ Time Living Will Yes November 03 10:53am Power of Servicing Rep Yes November 03, 2020 10:53am Advance Directive Response Recorded Date/ Time Living Will Yes November 03 9:53am Power of Servicing Rep Yes November 03, 2020 9:53am Advance Directive Response Recorded Date/ Time Advance Directives on File Yes 2022 7:30am Name of Medical Power of Servicing Rep Nicole Sanchez t- October 09, 2023 7:30am Advance Directives Yes September 7:30am Living Will Yes October 09, 2 023 7:30am Power of Servicing Rep Yes October 09, 2023 7:30am Advance Directive Response Recorded Date/ Time Advance Directives on File Yes 2022 7:30am Name of Medical Power of Servicing Rep Nicole Sanchez t- October 09, 2023 7:30am Name of Medical Power of Servicing Rep NICOLE SANCHEZ T October 31, 2023 3:46pm Advance Directives Yes September 7:30am Living Will Yes October 31, 2 023 3:46pm Power of Servicing Rep Yes October 31, 2023 3:46pm Advance Directive Response Recorded Date/ Time Advance Directives Yes September 8:30am Living Will Yes October 31, 2 023 4:46pm Power of Servicing Rep Yes October 31, 2023 4:46pm Advance Directive Response Recorded Date/ Time Advance Directives Yes September 8:30am Assessments There may be information available, but it has not been provided by the sender. Review of System There may be information available, but it has not been provided by the sender. Family History Relationship Condition Age at Onset Recorded Date/T wen mother Chronic obstructive pulmonary disease Unk nown Pulmonary emphysema Unknown father Malignant neoplasm of lung Unknown brother Malignant neoplasm of pancreas Unknown History of Present Illness There may be information available, but it has not been provided by the sender. Chief Complaint and Reason for Visit Chief Complaint SOB FORMER SMOKER SOB FORMER SMOKER SP LUMBAR SPRAIN LUMBAR SPRAIN.RX HERE RIGHT EYE IRRITATION Reason for Visit Blepharitis of right upper eyelid Chief Complaint RIGHT EYE IRRITATION PAIN X2 YRS, POSS SI JOINT ARTHRITIS/INFLAMMATION Reason for Visit Blepharitis of right upper eyelid Chief Complaint FIBROID UTERUS//LABW ORK SCANNED Chief Complaint Amb Documentation CAD (MIEDEL) Essential (primary) hypertension Amb Documentation Reason for Visit CAD (coronary artery disease) Chest tightness Hypertension Palpitations Chief Complaint Amb Documentation CAD (MIEDEL) Essential (primary) hypertension Amb Documentation J90 Amb Documentation Amb Documentation Essential (primary) hypertension Amb Documentation Reason for Visit CAD (coronary artery disease) Chest tightness Hypertension Palpitations Chief Complaint Amb Documentation CAD (MIEDEL) Essential (primary) hypertension Amb Documentation J90 Amb Documentation Amb Documentation Essential (primary) hypertension Amb Documentation SOB, CAD, CP Reason for Visit CAD (coronary artery disease) Chest tightness Hypertension Palpitations Chief Complaint Amb Documentation CAD (MIEDEL) Essential (primary) hypertension Amb Documentation J90 Amb Documentation Amb Documentation Essential (primary) hypertension Amb Documentation SOB, CAD, CP SOB, CAD, CP Shortness of breath Reason for Visit CAD (coronary artery disease) Chest tightness Hypertension Palpitations Lung nodule Asthma Encounter for screening colonoscopy Chief Complaint CAD (MIEDEL) Essential (primary) hypertension Amb Documentation J90 Amb Documentation Amb Documentation Essential (primary) hypertension Amb Documentation SOB, CAD, CP SOB, CAD, CP Shortness of breath SCREENING Reason for Visit CAD (coronary artery disease) Chest tightness Hypertension Palpitations Lung nodule Asthma Encounter for screening colonoscopy Chief Complaint 3 M FU 3 M FU R91.1Solitary pulmonary nodule Reason for Visit CAD (coronary artery disease) Chest tightness Dyslipidemia Hypertension Asthma Chief Complaint Admit Date CONCERN FOR SINUS INFECTION July 10, 2025 3:47pm cough July 10, 2025 4: 04pm Summary Purpose Additional Source Comments Reason for Visit (unrecogniz ed section and content) Reason For Visit Description New - 1st visit with practice Preliminary reason f or visit data, not yet signed by the author as of right leg Reason Comments Cough Pt reported chest co ngestion, x1 wk. Goals (unrecognized section and content) Goals may be documented in a n alternate sectionGoals may be documented in an alternate sectionGoals may be documented in an alternate sectionGoals may be documented in an alternate sectionGoals may be documented in an alternate sectionGoals may be documented in an alternate sectionGoals may be documented in an alternate sectionGoals may be documented in an alternate sectionGoals may be documented in an alternate sectionGoals may be documented in an alternate sectionGoals may be documented in an alternate sectionGoals may be documented in an alternate sectionGoals may be documented in an alternate sectionGoals may be documented in an alternate section No data available for this section Care Teams (unrecognized sec tion and content) Care Team Personnel Name: JESSICA PEREZ Member Role: Primary Care Physician Address: [address] [place] [address] [place] [address]- [place] Telecom: Care Team Related Persons Name: RUBI LOCKE Team Status: Active Member Role Status Dates Dr. Jessica Perez MD Family Provider Active Dr. Jessica Perez MD Primary Care Provider Active Team Status: Inactive Member Role Status Dates Dr. Jessica Perez MD Primary Care Prov ider, Attending Provider, Referring Provider Active Team Status: Active Member Role Status Dates Dr. Jessica Perez MD Primary Care Provider Active Alison Hernandez Attending Provider Active Team Status: Inactive Member Role Status Dates Dr. Jessica Perez MD Primary Care Provider, Referrin g Provider Active Dr. Jacob Tijerina MD Attending Provider Active Team Status: Active Member Role Status Dates Dr. Jessica Perez MD Primary Care Provider Active Dr. Jacob Tijerina MD Attending Provider Active Team Status: Active Member Role Status Dates Dr. Jessica Perez MD Primary Care Provider Active Shelley Ellsworth ENTRY LEVEL SOFTWARE DEVELOPER, ENTRY LEVEL SOFTWARE DEVELOPER-C Attending Provider Active Team Status: Inactive Member Role Status Dates Dr. Jessica Perez MD Primary Care Provider Active Dr. Jacob Tijerina MD Attending Provider, Referring Pr ovider Active Team Status: Active Member Role Status Dates Dr. Jessica Perez MD Primary Care Provider Active Dr. Jacob Tijerina MD Attending Provider, Referring Pr ovider Active Team Status: Active Member Role Status Dates Dr. Jessica Perez MD Primary Care Provider Active Chuck Duarte ENTRY LEVEL SOFTWARE DEVELOPER, ENTRY LEVEL SOFTWARE DEVELOPER-C Attending Provider Active Team Status: Inactive Member Role Status Dates Dr. Jessica Perez MD Primary Care Provider, Referrin g Provider Active Dr. Eamon Bryant DO Attending Provider Active Team Status: Active Member Role Status Dates Dr. Jessica Perez MD Primary Care Provider Active Dr. Jacob Tijerina MD Attending Provider , Referring Provider, Other Provider Active Team Status: Active Member Role Status Dates Dr. Jessica Perez MD Primary Care Provider, Referrin g Provider Active Dr. Marco Boston DO Attending Provider, Other Prov ider Active Team Status: Inactive Member Role Status Dates Dr. Jessica Perez MD Primary Care Provider Active Dr. Eamon Bryant DO Attending Provider, Referring Pro vider Active Dr. Isabel Greenfield MD Other Provider Active Team Status: Inactive Member Role Status Dates Dr. Jessica Perez MD Primary Care Provider, Referrin g Provider Active Dr. Marco Boston DO Attending Provider Active Team Status: Inactive Member Role Status Dates Dr. Jessica Perez MD Primary Care Provider Active Dr. Isabel Greenfield MD Attending Provider, Referring Pr ovider Active Team Status: Inactive Member Role Status Dates Dr. Jessica Perez MD Primary Care Provider, Referrin g Provider Active Jessica Yates ENTRY LEVEL SOFTWARE DEVELOPER, ENTRY LEVEL SOFTWARE DEVELOPER-C Attending Provider Active Team Status: Inactive Member Role Status Dates Dr. Jessica Perez MD Primary Care Provider Active Dr. Eamon Bryant DO Attending Provider, Referring Pro vider Active Team Status: Active Member Role Status Dates Dr. Jessica Perez MD Primary Care Provider Active Dr. Eamon Bryant DO Attending Provider, Referring Pro vider Active Dr. Isabel Greenfield MD Other Provider Active Team Status: Active Member Role/Relationship Status Dates Dr. Jessica Perez MD Primary Care Provider Active Team Status: Inactive Member Role/Relationship Status Dates Dr. Jessica Perez MD Primary Care Provider Active Start: July 10, 2025 End: July 10, 2025 Dr. Jessica Perez MD Referring Provider Active Start: July 10, 2025 End: July 10, 2025 DASHAWN Murphy Attending Provider Active Start: July 10, 2025 End: July 10, 2025 Team Status: Active Member Role/Relationship Status Dates Dr. Jessica Perez MD Primary Care Provider Active Start: July 10, 2025 DASHAWN Murphy Attending Provider Active Start: July 10, 2025 DASHAWN Murphy Referring Provider Active Start: July 10, 2025 Team Status: Inactive Member Role/Relationship Status Dates Dr. Jessica Perez MD Primary Care Provider Active Start: July 10, 2025 End: July 10, 2025 DASHAWN Murphy Attending Provider Active Start: July 10, 2025 End: July 10, 2025 DASHAWN Murphy Referring Provider Active Start: July 10, 2025 End: July 10, 2025 Source Comments (unrecognize d section and content) In the event this informatio n is protected by the [facility] Confidentiality of Alcohol and Drug Abuse Patient Records regulations: The Federal rules restrict any use of the information to criminally investigate or prosecute any alcohol or drug abuse patient.[facility] the event this information is protected by the Federal Confidentiality of Alcohol and Drug Abuse Patient Records regulations: The Federal rules restrict any use of the information to criminally investigate or prosecute any alcohol or drug abuse patient.[facility] INFORMATION SOURCE (unrecogn ized section and content) DATE CREATED AUTHOR 06/23/2023 [facility] DATE CREATED AUTHOR AUTHOR'S ORGANIZ ATION 11/09/2023 [facility] ([place]) DATE CREATED AUTHOR AUTHOR'S ORGANIZ ATION 07/19/2025 [facility] FOR RECORDS PERTAINING TO PATIENTS WHO ARE [...] BE BASED ON THE PRIMARY CLINICAL RECORDS. [employer] [facility]. provides no warranty or guarantee of the accuracy or completeness of information in this document.
[2025-08-22 09:16] LABS: Hematocrit 35.9 % (37-47); Hemoglobin 11.8 g/dL (12.0-15.0); Immature Granulocytes Count 0.070 X10^3/uL (0.0-0.0); Mean Corp Hgb Conc 32.9 g/dL (32-36); Mean Corpuscular Volume 93.2 fL (81-99); Mean Platelet Vol. 10.0 fl (6.2-12.0); NRBC Flagged by Analyzer 0 % (0-5); Platelet Count 326 K/mm3 (150-450); RBC Distribution Width CV 13.1 % (11.6-14.6); RBC Distribution Width SD 43.4 fl (35.1-43.9); Red Blood Count 3.85 M/mm3 (4.2-5.4); White Blood Count 4.3 K/mm3 (4.4-11.0)
[2025-08-22 09:40] LABS: Cholesterol 189 mg/dL (<=200); Low Density Lipoprotein Calc. 107 mg/dL; Triglycerides 148 mg/dL; Very Low Density Lipoprotein 30 mg/dL (5-40); cholesterol:hdl ratio screen 3.61
[2025-08-22 09:50] LABS: AST(SGOT) 45 U/L (<=31); Alanine Aminotransfer ALT/SGPT 40 U/L (<=34); Albumin, Serum 4.0 g/dL (3.4-4.8); Alkaline Phosphatase 93 U/L (35-104); Anion Gap 11 (5-15); BUN 13 mg/dL (4-19); BUN/Creat Ratio 14.9 RATIO (10-20); Calcium,Total 8.8 mg/dL (7.6-11.0); Carbon Dioxide 27.2 mmol/L (21.0-32.0); Chloride 104 mmol/L (98-108); Globulin 2.6 g/dL (2.2-4.2); Glucose 88 mg/dL (70-99); Potassium 4.4 mmol/L (3.3-5.1)
== END | disposition home or self-care (01) ==
LOC: LAB 08:04
PROVIDERS: PCP Family Medicine; Referring Provider Family Medicine; Visit Provider Family Medicine
DX: Z00.00 Encounter for general adult medical examination without abnormal findings (principal); I25.10 Atherosclerotic heart disease of native coronary artery without angina pectoris
CPT/HCPCS: 36415; 80053; 80061; 85025

== ENCOUNTER → 2025-08-29 | Outpatient (CLI) | payer BC, SELFPAY ==
[2025-08-29 13:00] LABS: CRP < 3.00 mg/L (0.0-3.0)
== END | disposition home or self-care (01) ==
LOC: LAB 09:54
PROVIDERS: PCP Family Medicine; Referring Provider Family Medicine; Visit Provider Family Medicine
DX: R50.9 Fever, unspecified (principal)
CPT/HCPCS: 36415; 85652; 86140; 86617

== ENCOUNTER → 2025-09-28 | Outpatient (CLI) | payer BC, SELFPAY ==
--- NOTE | 2025-09-28 16:52 | CT_ITS ---
EXAM: CT Chest Without Intravenous Contrast CLINICAL INDICATION: NODULES TECHNIQUE: Axial computed tomography images of the chest without intravenous contrast. This CT exam was performed using one or more of the following dose reduction techniques: automated exposure control, adjustment of the mA and/or kV according to patient size, and/or use of iterative reconstruction technique. COMPARISON: CT Chest dated 10/02/2024 FINDINGS: LUNGS AND PLEURAL SPACES: Emphysematous lung changes with scattered areas of ground-glass nodular attenuation, stable. No consolidation. No significant effusion. No pneumothorax. No new suspicious pulmonary nodules. HEART: Calcified coronary arterial disease. No cardiomegaly. No significant pericardial effusion. BONES/JOINTS: Unremarkable. No acute fracture. SOFT TISSUES: Unremarkable. VASCULATURE: Scattered calcified atherosclerotic disease of aorta. LYMPH NODES: Unremarkable. No enlarged lymph nodes. CT/Chest without Contrast IMPRESSION: 1. No new suspicious pulmonary nodules. 2. Continue low-dose CT scan of the chest in 12 months is recommended. Reading Location: [id number]
== END | disposition home or self-care (01) ==
LOC: CT 16:51
PROVIDERS: PCP Family Medicine; Referring Provider Nurse Practitioner Acute Care; Visit Provider Nurse Practitioner Acute Care
DX: R91.8 Other nonspecific abnormal finding of lung field (principal)
CPT/HCPCS: 71250